=== PATIENT | female | born 1970 | race Caucasian/White ===

== ENCOUNTER 2023-09-02 12:55 | Outpatient (OUT) | payer BC, SELFPAY ==
--- NOTE | 2023-09-02 13:34 | CA_ITS ---
Patient Name: MAKAYLA GRIFFITHS MR#: [id number] : 1970 Exam Date: 09/02/2023 Ordering Doctor: DR STEPHANIE FLEMING . ECHOCARDIOGRAM REPORT PROCEDURE: CA ECHO DOPPLER COMPLETE INDICATIONS: Shortness of breath, edema, diabetes, asthma COMPARISON: None. DESCRIPTION: COMPLETE ECHOCARDIOGRAM Real-time transthoracic echocardiography with 2D, M-mode, spectral and color flow Doppler performed. QUALITY: Technical quality was adequate. 64 , 260#, BSA 2.19 m2 LEFT VENTRICLE: Normal chamber size. Moderate concentric left ventricular hypertrophy. LV EF: Global left ventricular systolic function is normal; visually estimated ejection fraction is 55 to 60%. Cannot assess regional wall motion abnormalities. DIASTOLIC: Normal diastolic function. ATRIAL SEPTUM: Visually appears intact. LEFT ATRIUM: Normal chamber size. RIGHT ATRIUM: Normal chamber size. RIGHT VENTRICLE: Normal chamber size. Normal systolic function. TRICUSPID VALVE: Normal mobility and thickness. No stenosis with trivial regurgitation. No evidence of pulmonary hypertension. RVSP 33 mmHg MITRAL VALVE: Normal mobility and thickness. No evidence of mitral valve stenosis. There is no mitral annular calcification. No mitral regurgitation. AORTIC VALVE: Normal trileaflet appearance. No visible sclerosis. Normal leaflet mobility. No evidence of aortic valve stenosis. No aortic regurgitation. AORTIC ROOT: Normal diameter and appearance. PULMONIC VALVE: Not well visualized. No stenosis. No regurgitation. PERICARDIUM: Anterior free space; trivial effusion versus fat pad. IVC: Collapses with inspirations. IVC is normal in size. CONCLUSION: 1. Global left ventricular systolic function is normal; visually estimated ejection fraction is 55 to 60% 2. Moderately increased left ventricular wall thickness 3. The right ventricle is normal size and systolic function 4. Normal diastolic function 5. No significant valvular abnormalities 6. Anterior free space; trivial effusion versus fat pad. Adult Echocardiography Procedure Report Left Ventricle LVEDD (3.7 - 5.6 cm): 3.82 cm LVESD (2.2 - 4.0 cm): 2.58 cm LVIVS thickness (0.6 - 1.2 cm): 1.47 cm LVPW thickness (0.5 - 1.0 cm): 1.30 cm e': 0.12 m/s E - e': 9.23 LVOT Max Gradient: 4.37 mm[Hg] LVOT Area (cm2): 1.04 m/s Peak Velocity (LVOT): 1.04 m/s Mean Velocity (LVOT): 0.62 m/s LVOT Diameter 1.98 cm Left Atrium LA Volume Index (2D A2C): 17.95 ml/m2 Left Atrium Systolic Dimension: 3.19 cm Mitral Valve MV E to A Ratio: 1.24 Mitral Valve A-Wave Peak Velocity: 0.86 m/s Mitral Valve E-Wave Peak Velocity: 1.06 m/s Right Ventricle Aorta AO Root Diam: 3.16 cm Ascending Ao Diam: 2.95 cm Aortic Valve AoV Area (Peak Suleiman): 1.99 cm2, 1.99 cm2 AoV Area (VTI): 2.44 cm2, 2.44 cm2 Peak Velocity(Antegrade Flow): 1.61 m/s Peak Gradient(Antegrade Flow): 10.37 mm[Hg] Mean Velocity(Antegrade Flow): 0.99 m/s Mean Gradient(Antegrade Flow): 4.61 mm[Hg] Velocity Time Integral: 30.78 cm Tricuspid Valve Peak Velocity (Regurgitant Flow): 2.73 m/s Pulmonic Valve Peak Velocity: 1.25 m/s Peak Gradient: 5.35 mm[Hg], 7.14 mm[Hg] Right Atrium Dictated by: Arik Maki M.D. on 09/02/2023 at 16:18 Approved by: Arik Maki M.D. on 09/02/2023 at 16:21
== END 2023-09-02 12:56 | disposition home or self-care (01) ==
LOC: CARD 12:55
PROVIDERS: PCP Family Medicine; Visit Provider Family Medicine
DX: R06.02 Shortness of breath (principal); R60.0 Localized edema
CPT/HCPCS: 93306

== ENCOUNTER 2023-10-07 12:52 | Outpatient (OUT) | payer BC, SELFPAY ==
--- OUTSIDE RECORDS SUMMARY | 2023-10-07 12:55 | XMS_ITS | CCD ---
Demographics Address [address] [place] [address] Preferred Language en Marital Status Scientology Affiliation Unknown Race White Ethnic Group Unknown Author Name Unknown Address [address] [facility] [address] [place] [address] Organization [facility] Care Team Providers Care Tariff Compiler Name Role Phone ADELINANING, SYLVIA Chin Attending Unavailable HOUSE SR, PRIETO HIDALGO Referring Unavai lable HOUSE SR, PRIETO HIDALGO Referring Unavai lable FANNING, SYLVIA Chin Referring Unavailable FANNING, SYLVIA Chin Referring Unavailable FANNING, SYLVIA Chin Referring Unavailable FANNING, SYLVIA Chin Referring Unavailable HOUSE SR, PRIETO HIDALGO Referring Unavai lable FANNING, SYLVIA Chin Attending Unavailable HOUSE SR, PRIETO HIDALGO Referring Unavai lable FANNING, SYLVIA Chin Referring Unavailable FANNING, SYLVIA Chin Referring Unavailable HOUSE SR, PRIETO HIDALGO Referring Unavai lable FANNING, SYLVIA Chin Referring Unavailable FANNING, SYLVIA Chin Attending Unavailable HOUSE SR, PRIETO HIDALGO Referring Unavai lable FANNING, SYLVIA Chin Referring Unavailable FANNING, SYLVIA Chin Referring Unavailable FANNING, SYLVIA Chin Referring Unavailable FANNING, SYLVIA Chin Referring Unavailable FANNING, SYLVIA Chin Referring Unavailable FANNING, SYLVIA Chin Referring Unavailable HOY, DR BROWN Primary Care Unavailable BERNADETTE, DR BROWN Admitting Unavailable BERNADETTE, DR BROWN Attending Unavailable BERNADETTE, DR BROWN Primary Care Unavailable BERNADETTE, DR BROWN Admitting Unavailable BERNADETTE, DR BROWN Attending Unavailable BERNADETTE, DR BROWN Consulting Unavailable BERNADETTE, DR BROWN Primary Care Unavailable BERNADETTE, DR BROWN Admitting Unavailable BERNADETTE, DR BROWN Attending Unavailable MIRLANDE, DR ENMANUEL Soliz Consulting Unavailable BERNADETTE, DR BROWN Attending Unavailable BERNADETTE, DR BROWN Primary Care Unavailable BERNADETTE, DR BROWN Admitting Unavailable Allergies Allergy Classification Reported Allergen(s) Allergy Type Date of Onset Reaction(s) Facility (2 sources) Codeine; Translations: [CODEINE] Drug Allergy 06-17-2018 [facility] Repository (1 source) bee venom Drug allergy (disorder) [facility] Repository (1 source) Grass pollen Drug allergy (disorder) [facility] Repository (1 source) house dust allergenic extract Drug Allergy [facility] Repository (1 source) Mold Extract Drug Allergy [facility] Repository (1 source) Penicillin Drug Allergy [facility] Repository (1 source) Ragweed Drug allergy (disorder) [facility] Repository Problems Active Problems Problem Classification Problem Date Documented Da te Episodic/Chronic Other female genital disorders (1 source) Abnormal uterine and vaginal bleeding, unspecified; Translations: [Abnormal uterine and vaginal bleeding, unspecified] Onset: 06-18-2018 Chronic Other screening for suspected conditions (not mental disorders or infectious disease) (4 sources) Encounter for screening mammogram for malignant neoplasm of breast; Translations: [ENC SCR MAMMO MALIG NEOPLASM BREAST] Onset: 04-02-2022 Episodic Residual codes; unclassified (1 source) Family history of malignant neoplasm of breast; Translations: [FAMILY HX MALIG NEOPLASM OF BREAST] Onset: 04-07-2022 Episodic Past or Other Problems Problem Classification Problem Date Documented Da te Episodic/Chronic Deficiency and other anemia (1 source) Iron deficiency anemia, unspecified; Translations: [Iron deficiency anemia, unspecified] Onset: 06-18-2018 Episodic Residual codes; unclassified (1 source) Other general symptoms and signs; Translations: [Other general symptoms and signs] Onset: 06-18-2018 Episodic Results Test Name Value Interpretation Reference Range Facility MG MAMM SCREEN 3D THEODORE CADon 04-02-2022 MG MAMM SCREEN 3D THEODORE CAD Patient: SARAH BETH GRIFFITHS Exam Date: 04/02/2022 : 1970 Gender:F Ordering : DR STEPHANIE FLEMING . Admission #: [id number] Family : Order #: [id number] CLICK HERE TO VIEW EXAM RADIOLOGY REPORT PROCEDURE: MAMMOGRAM SCREENING 3D BILATERAL CAD COMPARISON: MG MAMM DX 3D LT CAD, 11/24/2018. MG MAMM SCREEN 3D THEODORE CAD, 11/09/2018. INDICATIONS: Screening mammography Calculator Name NCI Breast Cancer Risk Assessment Tool 5 Year Breast Cancer Risk 1.50% Lifetime Breast Cancer Risk 11.00% Personal Breast Cancer No Personal Ovarian Cancer No Treatments None Family Cancers Mother with breast cancer at age 68; Grandmother-maternal with breast cancer at age 70. LOCATION: [facility] BREAST COMPOSITION: Heterogeneously dense,which may obscure small masses. FINDINGS: DIAGNOSTIC CATEGORY 2--BENIGN FINDING: RIGHT BREAST: No significant suspicious finding. Scattered benign-appearing calcifications are present. No significant change has occurred. LEFT BREAST: No significant suspicious finding. Scattered benign-appearing calcifications are present. No significant change has occurred. RECOMMENDATIONS: ROUTINE MAMMOGRAM AND CLINICAL EVALUATION IN 12 MONTHS. PLEASE NOTE: A NORMAL MAMMOGRAM DOES NOT EXCLUDE THE POSSIBILITY OF BREAST CANCER. A CLINICALLY SUSPICIOUS PALPABLE LUMP SHOULD BE BIOPSIED. Dictated by: Enmanuel Donahue M.D. on 04/03/2022 at 14:38 Approved by: Enmanuel Donahue M.D. on 04/03/2022 at 14:47 Normal [facility] Stool Occult Bl. Scr. (Immun o)on 03-12-2022 Stool Occult Bl. Scr. (Immuno) Occult Blood (Immuno) Negative for Occult Blood by Immunochemical Methodology Reference range = Negative PERFORMED BY: [place] [address] PATHOLOGIST FAMILY SERVICE ASSISTANT TEJAS HARP M.D. Normal [facility] Comment on above: Performed By: #### O BS-IMMUNO #### [facility] [address] [place], [place] [id number] [facility] A1C with Estimated Average G tyronisamar 03-11-2022 Glucose [Mass/Vol] 154 mg/dL Normal [facility] Comment on above: Result Comment: PERF ORMED BY: [place] [address] PATHOLOGIST FAMILY SERVICE ASSISTANT TEJAS HARP M.D. Performed By: #### T 3F, A1C WTH eA, SCAN CBC, TSH3, [id number], CMP, LIPID, T4T #### [facility] [address] [place] [phone] [facility] HbA1c (Bld) [Mass fraction] 7.0 % High 4.3-5.6 [facility] Comment on above: Result Comment: Incr eased risk for diabetes: 5.7 - 6.4 diabetes: >6.4 glycemic control for adults with diabetes: <7.0 Performed By: #### T 3F, A1C WTH eA, SCAN CBC, TSH3, [id number], CMP, LIPID, T4T #### [facility] [address] Comprehensive Metabolic Pane mary 03-11-2022 Albumin [Mass/Vol] 3.7 g/dL Normal 3.2-5.5 [facility] Comment on above: Performed By: #### T 3F, A1C WTH eA, SCAN CBC, TSH3, [id number], CMP, LIPID, T4T #### [address] Albumin/Globulin [Mass ratio] 1.2 {ratio} Normal [facility] Comment on above: Performed By: #### T 3F, A1C WTH eA, SCAN CBC, TSH3, [id number], CMP, LIPID, T4T #### [facility] [address] ALP [Catalytic activity/Vol] 95 U/L High 32-92 [facility] Comment on above: Performed By: #### T 3F, A1C WTH eA, SCAN CBC, TSH3, [id number], CMP, LIPID, T4T #### [facility] [address] [place] [address] ALT [Catalytic activity/Vol] 21 U/L Normal 10-60 [facility] Comment on above: Performed By: #### T 3F, A1C WTH eA, SCAN CBC, TSH3, [id number], CMP, LIPID, T4T #### [facility] [address] [place] [address] [place] AST [Catalytic activity/Vol] 20 U/L Normal 10-42 [facility] Comment on above: Performed By: #### T 3F, A1C WTH eA, SCAN CBC, TSH3, [id number], CMP, LIPID, T4T #### [facility] [address] [place] [address] [place] Bilirubin [Mass/Vol] 0.4 mg/dL Normal 0.3-1.2 [facility] Comment on above: Performed By: #### T 3F, A1C WTH eA, SCAN CBC, TSH3, [id number], CMP, LIPID, T4T #### [facility] [address] Calcium [Mass/Vol] 9.2 mg/dL Normal 8.2-10.2 [facility] Comment on above: Performed By: #### T 3F, A1C WTH eA, SCAN CBC, TSH3, [id number], CMP, LIPID, T4T #### [facility] [address] Chloride [Moles/Vol] 101 mmol/L Normal 95-114 [facility] Comment on above: Performed By: #### T 3F, A1C WTH eA, SCAN CBC, TSH3, [id number], CMP, LIPID, T4T #### [facility] [address] CO2 [Moles/Vol] 24.8 mmol/L Normal 22.0-30.0 [facility] Comment on above: Performed By: #### T 3F, A1C WTH eA, SCAN CBC, TSH3, [id number], CMP, LIPID, T4T #### [facility] [address] Creatinine [Mass/Vol] 0.71 mg/dL Normal 0.44-1.03 [facility] Comment on above: Performed By: #### T 3F, A1C WTH eA, SCAN CBC, TSH3, [id number], CMP, LIPID, T4T #### [facility] [address] [place] [address] [place] Estimated GFR ( Patricia > 60 Normal [facility] Comment on above: Result Comment: GFR estimated reference range: According to KDOQI guidelines, <60 ml/min/1.73m2 is sufficient to diagnose a patient with chronic kidney disease. Performed By: #### T 3F, A1C WTH eA, SCAN CBC, TSH3, [id number], CMP, LIPID, T4T #### [facility] [address] Estimated GFR (Non- Am > 60 [facility] Comment on above: Performed By: #### T 3F, A1C WTH eA, SCAN CBC, TSH3, [id number], CMP, LIPID, T4T #### [facility] [address] Globulin (S) [Mass/Vol] 3.0 g/dL [facility] Comment on above: Performed By: #### T 3F, A1C WTH eA, SCAN CBC, TSH3, [id number], CMP, LIPID, T4T #### [facility] [address] Glucose [Mass/Vol] 146 mg/dL High 70-100 [facility] Comment on above: Result Comment: [facility] Glucose Reference Range is dependent on time and content of last meal. Glucose of more than 200 mg/dL in a nonstressed, ambulatory subject supports the diagnosis of Diabetes Mellitus. ADA recommended reference range Performed By: #### T 3F, A1C WTH eA, SCAN CBC, TSH3, [id number], CMP, LIPID, T4T #### [facility] [address] Potassium [Moles/Vol] 3.8 mmol/L Normal 3.5-5.1 [facility] Comment on above: Performed By: #### T 3F, A1C WTH eA, SCAN CBC, TSH3, [id number], CMP, LIPID, T4T #### [facility] [address] Protein [Mass/Vol] 6.7 g/dL Normal 6.1-7.9 [facility] Comment on above: Performed By: #### T 3F, A1C WTH eA, SCAN CBC, TSH3, [id number], CMP, LIPID, T4T #### [facility] [address] Sodium [Moles/Vol] 139 mmol/L Normal 136-146 [facility] Comment on above: Performed By: #### T 3F, A1C WTH eA, SCAN CBC, TSH3, [id number], CMP, LIPID, T4T #### [facility] [address] [place] [address] [place] Urea nitrogen [Mass/Vol] 11 mg/dL Normal 9-23 [facility] Comment on above: Performed By: #### T 3F, A1C WTH eA, SCAN CBC, TSH3, [id number], CMP, LIPID, T4T #### [facility] [address] Lipid Panelon 03-11-2022 Cholesterol [Mass/Vol] 156 mg/dL Normal 140-200 [facility] Comment on above: Result Comment: Chol less than 200 mg/dl low risk Chol 201-239 mg/dl borderline risk Chol 240 mg/dl and greater high risk Performed By: #### T 3F, A1C WTH eA, SCAN CBC, TSH3, [id number], CMP, LIPID, T4T #### [facility] [address] Cholesterol in HDL [Mass/Vol] 52 mg/dL Normal 35-85 [facility] Comment on above: Result Comment: HDL CHOL ATP-III CLASSIFICATION Cardiovascular Risk HDL > or equal to 60 mg/dL LOW HDL < 40 mg/dL HIGH Performed By: #### T 3F, A1C WTH eA, SCAN CBC, TSH3, [id number], CMP, LIPID, T4T #### [facility] [address] [place] [id number] [facility] Cholesterol.total/Chol esterol in HDL [Mass ratio] 3.0 {ratio} Normal <5.0 [facility] Comment on above: Performed By: #### T 3F, A1C WTH eA, SCAN CBC, TSH3, [id number], CMP, LIPID, T4T #### [facility] [address] [place] [phone] [facility] LDL Cholesterol,Calculated 90 mg/dL Normal 0-100 [facility] Comment on above: Result Comment: LDL ATP III CLASSIFICATION LDL less than 100 mg/dL Optimal LDL 100-129 mg/dL Near or above optimal LDL 130-159 mg/dL Borderline high LDL 160-189 mg/dL High LDL greater than 189 mg/dL Very high Performed By: #### T 3F, A1C WTH eA, SCAN CBC, TSH3, [id number], CMP, LIPID, T4T #### [address] Triglyceride w/Reflex 72 mg/dL Normal 35-149 [facility] Comment on above: Result Comment: TRIG ATP III CLASSIFICATION TRIG less than 150 mg/dL Normal TRIG 150-199 mg/dL Borderline high TRIG 200-500 mg/dL High TRIG greater than 500 mg/dL Very high Standard traceable to the Center for Disease Conrtrol and Prevention (CDC) test method. Performed By: #### T 3F, A1C WTH eA, SCAN CBC, TSH3, [id number], CMP, LIPID, T4T #### [address] VLDL CHOLESTEROL 14 mg/dL Normal [facility] Comment on above: Performed By: #### T 3F, A1C WTH eA, SCAN CBC, TSH3, [id number], CMP, LIPID, T4T #### [address] Scan and CBCon 03-11-2022 Basophils (Bld) [#/Vol] 0.0 10*3/uL Normal 0.0-0.2 [facility] Comment on above: Performed By: #### T 3F, A1C WTH eA, SCAN CBC, TSH3, [id number], CMP, LIPID, T4T #### [address] Basophils/100 WBC (Bld) 0.2 % Normal . [facility] Comment on above: Performed By: #### T 3F, A1C WTH eA, SCAN CBC, TSH3, [id number], CMP, LIPID, T4T #### [address] Eosinophils (Bld) [#/Vol] 0.2 10*3/uL Normal 0.0-0.45 [facility] Comment on above: Performed By: #### T 3F, A1C WTH eA, SCAN CBC, TSH3, [id number], CMP, LIPID, T4T #### [place] [address] [place] Eosinophils/100 WBC (Bld) 2.7 % Normal . [facility] Comment on above: Performed By: #### T 3F, A1C WTH eA, SCAN CBC, TSH3, [id number], CMP, LIPID, T4T #### [address] Erythrocyte distribution width (RBC) [Ratio] 12.9 % Normal 11.9-15.3 [facility] Comment on above: Performed By: #### T 3F, A1C WTH eA, SCAN CBC, TSH3, [id number], CMP, LIPID, T4T #### [address] Hematocrit (Bld) [Volume fraction] 42.4 % Normal 34.0-46.4 [facility] Comment on above: Performed By: #### T 3F, A1C WTH eA, SCAN CBC, TSH3, [id number], CMP, LIPID, T4T #### [address] Hemoglobin (Bld) [Mass/Vol] 14.1 g/dL Normal 11.8-15.4 [facility] Comment on above: Performed By: #### T 3F, A1C WTH eA, SCAN CBC, TSH3, [id number], CMP, LIPID, T4T #### [address] Large Platelets Slight Normal [facility] Comment on above: Result Comment: PERF ORMED BY: [place] [address] PATHOLOGIST FAMILY SERVICE ASSISTANT TEJAS HARP M.D. Performed By: #### T 3F, A1C WTH eA, SCAN CBC, TSH3, [id number], CMP, LIPID, T4T #### [address] Lymphocytes (Bld) [#/Vol] 0.7 10*3/uL Low 1.00-4.8 [facility] Comment on above: Performed By: #### T 3F, A1C WTH eA, SCAN CBC, TSH3, [id number], CMP, LIPID, T4T #### [address] Lymphocytes/100 WBC (Bld) 11.5 % Normal . [facility] Comment on above: Performed By: #### T 3F, A1C WTH eA, SCAN CBC, TSH3, [id number], CMP, LIPID, T4T #### [address] MCH (RBC) [Entitic mass] 30.1 pg Normal 24.7-34.3 [facility] Comment on above: Performed By: #### T 3F, A1C WTH eA, SCAN CBC, TSH3, [id number], CMP, LIPID, T4T #### [address] MCV (RBC) [Entitic vol] 90.2 fL Normal 80-100 [facility] Comment on above: Performed By: #### T 3F, A1C WTH eA, SCAN CBC, TSH3, [id number], CMP, LIPID, T4T #### [address] Mean Corpuscular HGB Conc 33.4 g/dL Normal 32.0-35.0 [facility] Comment on above: Performed By: #### T 3F, A1C WTH eA, SCAN CBC, TSH3, [id number], CMP, LIPID, T4T #### [address] Monocytes (Bld) [#/Vol] 0.5 10*3/uL Normal 0.0-0.8 [facility] Comment on above: Performed By: #### T 3F, A1C WTH eA, SCAN CBC, TSH3, [id number], CMP, LIPID, T4T #### [address] Monocytes/100 WBC (Bld) 8.1 % Normal . [facility] Comment on above: Performed By: #### T 3F, A1C WTH eA, SCAN CBC, TSH3, [id number], CMP, LIPID, T4T #### [facility] [address] [place] [address] [place] Neutrophils (Bld) [#/Vol] 4.4 10*3/uL Normal 1.8-7.7 [facility] Comment on above: Performed By: #### T 3F, A1C WTH eA, SCAN CBC, TSH3, [id number], CMP, LIPID, T4T #### [facility] [address] [place] [address] [place] Neutrophils/100 WBC (Bld) 77.5 % Normal . [facility] Comment on above: Performed By: #### T 3F, A1C WTH eA, SCAN CBC, TSH3, [id number], CMP, LIPID, T4T #### [place] [address] [place] Nucleated RBC/100 WBC (Bld) [Ratio] 0.0 % Normal 0-0.5 [facility] Comment on above: Performed By: #### T 3F, A1C WTH eA, SCAN CBC, TSH3, [id number], CMP, LIPID, T4T #### [address] Platelet Estimate Normal Normal Normal [facility] Comment on above: Performed By: #### T 3F, A1C WTH eA, SCAN CBC, TSH3, [id number], CMP, LIPID, T4T #### [address] Platelet mean volume (Bld) [Entitic vol] 10.9 fL High 6.3-10.7 [facility] Comment on above: Performed By: #### T 3F, A1C WTH eA, SCAN CBC, TSH3, [id number], CMP, LIPID, T4T #### [place] [address] [place] Platelets (Bld) [#/Vol] 180 10*3/uL Normal 150-450 [facility] Comment on above: Performed By: #### T 3F, A1C WTH eA, SCAN CBC, TSH3, [id number], CMP, LIPID, T4T #### [address] [place] [address] [place] RBC (Bld) [#/Vol] 4.70 10*6/uL Normal 3.60-5.00 [facility] Comment on above: Performed By: #### T 3F, A1C WTH eA, SCAN CBC, TSH3, [id number], CMP, LIPID, T4T #### [address] RBC morphology finding Nom (Bld) Normal Normal [facility] Comment on above: Performed By: #### T 3F, A1C WTH eA, SCAN CBC, TSH3, [id number], CMP, LIPID, T4T #### [address] WBC (Bld) [#/Vol] 5.6 10*3/uL Normal 4.5-11.0 [facility] Comment on above: Performed By: #### T 3F, A1C WTH eA, SCAN CBC, TSH3, [id number], CMP, LIPID, T4T #### [address] Thyroid Stimulating Hormoneo n 03-11-2022 TSH Qn 1.35 m[IU]/L Normal 0.45-5.33 [facility] Comment on above: Performed By: #### T 3F, A1C WTH eA, SCAN CBC, TSH3, [id number], CMP, LIPID, T4T #### [address] Thyroxine (T4) Totalon 03-11 T4 [Mass/Vol] 9.10 ug/dL Normal 5.39-11.82 [facility] Comment on above: Performed By: #### T 3F, A1C WTH eA, SCAN CBC, TSH3, [id number], CMP, LIPID, T4T #### [address] Triiodothyronine (T3) Freeon 03-11-2022 Triiodothyronine (T3) Free 4.04 pg/mL High 2.50-3.90 [facility] Comment on above: Result Comment: PERF ORMED BY: [address] [place] [address] PATHOLOGIST FAMILY SERVICE ASSISTANT TEJAS HARP M.D. Performed By: #### T 3F, A1C WTH eA, SCAN CBC, TSH3, [id number], CMP, LIPID, T4T #### [facility] [address] [place] [id number] [facility] Vitamin D 25 Hydroxy Totalon 03-11-2022 Vitamin D 25 Hydroxy Total 14.3 ng/mL Low 30-100 [facility] Comment on above: Result Comment: RADHA MIN D STATUS 25(OH)VITAMIN D RANGE (ng/mL) Deficient <20 Insufficient 20 to <30 Sufficient 30 to 100 Reference: Ilda MF,Sandi LUNSFORD, Gayle LOYA, et al. Evaluation,treatment, and prevention of vitamin D deficiency; an Endocrine Society clinical practice guideline. JCEM. 2010; 96(7):1911-30. PERFORMED BY: [place] [address] PATHOLOGIST FAMILY SERVICE ASSISTANT TEJAS HARP M.D. Performed By: #### T 3F, A1C WTH eA, SCAN CBC, TSH3, [id number], CMP, LIPID, T4T #### [facility] [address] [place] [id number] [facility] Ferritinon 10-15-2018 Ferritin mass conc 46.9 ng/mL Normal 14.7-205.1 [facility] Comment on above: Performed By: #### R CBCDF #### [facility] [address] [place], [place] [address] Iron and TIBCon 10-15-2018 Iron mass conc 69 ug/dL Normal 41-186 [facility] Comment on above: Performed By: #### R CBCDF #### [facility] [place], [place] [address] TIBC 366 ug/dL Normal 232-386 [facility] Comment on above: Performed By: #### R CBCDF #### [facility] [place], [place] [address] Transferrin Saturatn 19 % Normal 15-57 [facility] Comment on above: Performed By: #### R CBCDF #### [facility] [address] [id number] Remote Abs Gran + CBC (for F HC use only)on 10-15-2018 Absol Gran Count 6.30 k/uL Normal 1.45-7.50 [facility] Erythrocyte distribution width Ratio (RBC) 12.3 % Normal 11.5-15.0 [facility] Hematocrit Volume Fraction (Bld) 43.8 % Normal 36.0-46.0 [facility] Hemoglobin mass conc (Bld) 14.8 g/dL Normal 11.5-15.5 [facility] MCH Entitic mass (RBC) 30.7 pG Normal 26.0-34.0 [facility] MCHC mass conc (RBC) 33.8 g/dL Normal 30.5-36.0 [facility] MCV Entitic volume (RBC) 90.9 fL Normal 80.0-100.0 [facility] Platelet mean volume Entitic volume (Bld) 12.5 fL Normal 9.0-12.7 [facility] Platelets #/vol (Bld) 189 10*3/uL Normal 150-400 [facility] RBC #/vol (Bld) 4.82 10*6/uL Normal 3.90-5.20 [facility] WBC #/vol (Bld) 8.02 10*3/uL Normal 3.70-11.00 [facility] Ferritinon 08-24-2018 Ferritin mass conc 32.1 ng/mL Normal 14.7-205.1 [facility] Comment on above: Performed By: #### F ERR, IRON ####[facility] [place], [place] [phone] Iron and TIBCon 08-24-2018 Iron mass conc 75 ug/dL Normal 41-186 [facility] Comment on above: Performed By: #### F ERR, IRON ####[facility] [phone] TIBC 375 ug/dL Normal 232-386 [facility] Comment on above: Performed By: #### F ERR, IRON ####[place] [phone] Transferrin Saturatn 20 % Normal 15-57 [facility] Comment on above: Performed By: #### F ERR, IRON ####[place] [phone] Remote Abs Gran + CBC (for F HC use only)on 08-24-2018 Absol Gran Count 5.78 k/uL Normal 1.45-7.50 [facility] Comment on above: Performed By: #### R AGCBC ####[address] [phone] Comment [id number] Normal [facility] Comment on above: Result Comment: Gregoria ferris checked for a clot. Preliminary result. Interpret with caution. Final results may vary. Results requested and read back by: KAYCE/BELEM/144/08/24/18/LATONYA Performed By: #### R AGCBC ####[place] [phone] Erythrocyte distribution width Ratio (RBC) 19.3 % High 11.5-15.0 [facility] Comment on above: Performed By: #### R AGCBC ####[place] [phone] Hematocrit Volume Fraction (Bld) 41.9 % Normal 36.0-46.0 [facility] Comment on above: Performed By: #### R AGCBC ####[address] [phone] Hemoglobin mass conc (Bld) 14.0 g/dL Normal 11.5-15.5 [facility] Comment on above: Performed By: #### R AGCBC ####[address] [place], [place] [phone] MCH Entitic mass (RBC) 28.8 pG Normal 26.0-34.0 [facility] Comment on above: Performed By: #### R AGCBC ####[facility] [facility], [place] [phone] MCHC mass conc (RBC) 33.4 g/dL Normal 30.5-36.0 [facility] Comment on above: Performed By: #### R AGCBC ####[facility] [facility] CampusAugustoPle[place], [place] [phone] MCV Entitic volume (RBC) 86.2 fL Normal 80.0-100.0 [facility] Comment on above: Performed By: #### R AGCBC ####[address] [phone] Platelets #/vol (Bld) 148 10*3/uL Low 150-400 [facility] Comment on above: Result Comment: Resu lt rechecked. No clot detected. Performed By: #### R AGCBC ####[address] [phone] RBC #/vol (Bld) 4.86 10*6/uL Normal 3.90-5.20 [facility] Comment on above: Performed By: #### R AGCBC ####[address] [phone] WBC #/vol (Bld) 7.56 10*3/uL Normal 3.70-11.00 [facility] Comment on above: Performed By: #### R AGCBC ####[facility] [place], [place] [phone] CNOVSPon 07-16-2018 CNOVSP Visit (SP) Office ([place]) SARAH BETH GRIFFITHS ([id number]) 1970 F Date Time Provider Department 07/16/18 9:45 AM SYLVIA CHIN During your visit today, we recorded the following information about you: Temperature Pulse Respiration Blood pressure 98 degrees 71/minute 18/minute 139/66 Weight Height 85.3 kg 1.63 m Sylvia Chin MD 07/16/2018 12:23 PM Signed HPI Sarah Beth Griffiths is a 48 year old female who presents in follow up. 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 She had IV iron with improvement in hgb. I will continue to check labs until she gets her bleeding under control. She presented June 18, 2018 with iron deficiency and vaginal bleeding. Since March she has had intractable vaginal bleeding which has been quite heavy. She presented with microcytic anemia with a hemoglobin down to 5.5 with microcytosis. She had ice craving, severe dyspnea on exertion consistent with severe anemia. She was put on oral iron the week before presentation but had terrible constipation and GI symptoms related to this. She had a great response to IV iron. Current Outpatient Prescriptions: VENTOLIN HFA 90 mcg/actuation inhaler albuterol (PROVENTIL) 2.5 mg /3 mL (0.083 %) nebulizer solution loratadine/pseudoeph edrine (CLARITIN-D 24 HOUR ORAL) Take by mouth. pseudoephedrine HCl (SUDAFED ORAL) Take by mouth. No current facility-administere d medications for this visit. ALLERGIES Allergen Reactions - Codeine Unknown REVIEW OF SYSTEMS GENERAL: No weight loss, malaise or fevers., SEE HPI HEENT: Negative for frequent or significant headaches, No changes in hearing or vision, no nose bleeds or other nasal problems NECK: Negative for lumps, goiter, pain and significant neck swelling RESPIRATORY: Negative for cough, wheezing or shortness of breath. CARDIOVASCULAR: Negative for chest pain, leg swelling or palpitations. GI: Negative for abdominal discomfort, blood in stools or black stools or change in bowel habits MUSCULOSKELETAL: Negative for joint pain or swelling, back pain or muscle pain. SKIN: Negative for lesions, rash, and itching. PSYCH: Negative for sleep disturbance, mood disorder and recent psychosocial stressors. HEMATOLOGY/LYMPHOLOG Y: Negative for prolonged bleeding, bruising easily or swollen nodes. NEURO: No history of headaches, syncope, paralysis, seizures or tremors All other reviewed and negative other than HPI. PHYSICAL EXAM: BP 139/66 Pulse 71 Temp 36.7 ?C (98 ?F) (Oral) Resp 18 Ht 163 cm (5' 4.17 ) Wt 85.3 kg (188 lb) SpO2 100% BMI 32.10 kg/m? General Appearance: alert and oriented, appearing in no acute distress Skin: skin color, texture, turgor normal, no suspicious rashes or lesions. Head: normal. Eyes: Anicteric sclera. Pupils are equally round. Extraocular movements are intact. . Ears: external ears normal Neck: Supple, no adenopathy; thyroid symmetric, normal size, no bruits. Back:no pain with ambulation Lungs: good air exchange overall Heart: RRR Abdomen: No obvious evidence of rebound tenderness or guarding Extremities: Extremities normal. No deformities, edema, or skin discoloration. Good capillary refill.. Musculoskeletal: Spine range of motion normal. Muscular strength intact. Peripheral Pulses: Normal. Neurologic: Gait normal. No gross cerebellar defects Psychiatric: the patient has an appropriate affect Hemoglobin (g/dL) Date Value 07/16/2018 11.7 Hematocrit (%) Date Value 07/16/2018 37.3 WBC (k/uL) Date Value 07/16/2018 7.55 Platelet Count (k/uL) Date Value 07/16/2018 187 ASSESSMENT/PLAN: 1. Vaginal bleeding - ICD9: 623.8, ICD10: N93.9 (primary diagnosis) See above - IRON + TIBC - FERRITIN BLD - ABS GRAN CT + CBC (FOR REMOTE [facility] USE) 2. Iron deficiency anemia, unspecified iron deficiency anemia type - ICD9: 280.9, ICD10: D50.9 Lab work Defer management to REPAIRER CYLINDER HEADS See me in follow up - IRON + TIBC - FERRITIN BLD - ABS GRAN CT + CBC (FOR REMOTE [facility] USE) Sylvia Chin MD Referring Provider: FORT SUMNER SR, PRIETO HIDALGO [[id number]] Allergies As of Date: 07/16/2018 Noted Allergy Reaction CODEINE 06/17/2018 16 - Unknown Date Reviewed: 07/16/2018 Reviewed by: Yadi Cisneros - Fully Assessed Reason for Visit: Anemia [6] Cmt: 4 week follow up Primary Visit Diagnosis:Vaginal bleeding [N93.9] Other Visit Diagnosis:Iron deficiency anemia, unspecified iron deficiency anemia type [D50.9] Order(s):IRON + TIBC [SQIRON] Order #: [id number] STANDING FERRITIN BLD [SQFERR] Order #: [id number] STANDING ABS GRAN CT + CBC (FOR REMOTE [facility] USE) [SQRAGCBC] Order #: [id number] STANDING Disposition: Return in about 6 months (around 01/14/2019). Follow-up and Disposition History Recorded Prescriptions as of 07/16/2018 Sig: VENTOLIN HFA 90 MCG/ACTUATION* ALBUTEROL SULFATE 2.5 MG/3 ML* CLARITIN-D 24 HOUR ORAL Take by mouth. SUDAFED ORAL Take by mouth. Problem List As Of Date 07/16/2018 Noted Resolved Iron deficiency anemia [D50.9] INVALID FOR* Vaginal bleeding [N93.9] INVALID FOR* Encounter Status:Closed by SYLVIA CHIN MD on 07/16/18 Normal [facility] PROGRESSon 07-16-2018 Protein mass conc HNO ID: [id number] Author: Sylvia Chin Service: (none) Author Type: Physician Type: Progress Notes Filed: 07/16/2018 12:23 PM Note Text: MARVEL Griffiths is a 48 year old female who presents in follow up. 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 She had IV iron with improvement in hgb. I will continue to check labs until she gets her bleeding under control. She presented June 18, 2018 with iron deficiency and vaginal bleeding. Since March she has had intractable vaginal bleeding which has been quite heavy. She presented with microcytic anemia with a hemoglobin down to 5.5 with microcytosis. She had ice craving, severe dyspnea on exertion consistent with severe anemia. She was put on oral iron the week before presentation but had terrible constipation and GI symptoms related to this. She had a great response to IV iron. Current Outpatient Prescriptions: VENTOLIN HFA 90 mcg/actuation inhaler albuterol (PROVENTIL) 2.5 mg /3 mL (0.083 %) nebulizer solution loratadine/pseudoeph edrine (CLARITIN-D 24 HOUR ORAL) Take by mouth. pseudoephedrine HCl (SUDAFED ORAL) Take by mouth. No current facility-administere d medications for this visit. ALLERGIES Allergen Reactions - Codeine Unknown REVIEW OF SYSTEMS GENERAL: No weight loss, malaise or fevers., SEE HPI HEENT: Negative for frequent or significant headaches, No changes in hearing or vision, no nose bleeds or other nasal problems NECK: Negative for lumps, goiter, pain and significant neck swelling RESPIRATORY: Negative for cough, wheezing or shortness of breath. CARDIOVASCULAR: Negative for chest pain, leg swelling or palpitations. GI: Negative for abdominal discomfort, blood in stools or black stools or change in bowel habits MUSCULOSKELETAL: Negative for joint pain or swelling, back pain or muscle pain. SKIN: Negative for lesions, rash, and itching. PSYCH: Negative for sleep disturbance, mood disorder and recent psychosocial stressors. HEMATOLOGY/LYMPHOLOG Y: Negative for prolonged bleeding, bruising easily or swollen nodes. NEURO: No history of headaches, syncope, paralysis, seizures or tremors All other reviewed and negative other than HPI. PHYSICAL EXAM: BP 139/66 Pulse 71 Temp 36.7 ?C (98 ?F) (Oral) Resp 18 Ht 163 cm (5' 4.17 ) Wt 85.3 kg (188 lb) SpO2 100% BMI 32.10 kg/m? General Appearance: alert and oriented, appearing in no acute distress Skin: skin color, texture, turgor normal, no suspicious rashes or lesions. Head: normal. Eyes: Anicteric sclera. Pupils are equally round. Extraocular movements are intact. . Ears: external ears normal Neck: Supple, no adenopathy; thyroid symmetric, normal size, no bruits. Back:no pain with ambulation Lungs: good air exchange overall Heart: RRR Abdomen: No obvious evidence of rebound tenderness or guarding Extremities: Extremities normal. No deformities, edema, or skin discoloration. Good capillary refill.. Musculoskeletal: Spine range of motion normal. Muscular strength intact. Peripheral Pulses: Normal. Neurologic: Gait normal. No gross cerebellar defects Psychiatric: the patient has an appropriate affect Hemoglobin (g/dL) Date Value 07/16/2018 11.7 Hematocrit (%) Date Value 07/16/2018 37.3 WBC (k/uL) Date Value 07/16/2018 7.55 Platelet Count (k/uL) Date Value 07/16/2018 187 ASSESSMENT/PLAN: 1. Vaginal bleeding - ICD9: 623.8, ICD10: N93.9 (primary diagnosis) See above - IRON + TIBC - FERRITIN BLD - ABS GRAN CT + CBC (FOR REMOTE [facility] USE) 2. Iron deficiency anemia, unspecified iron deficiency anemia type - ICD9: 280.9, ICD10: D50.9 Lab work Defer management to REPAIRER CYLINDER HEADS See me in follow up - IRON + TIBC - FERRITIN BLD - ABS GRAN CT + CBC (FOR REMOTE [facility] USE) Sylvia Chin MD Normal [facility] Remote Abs Gran + CBC (for [facility] use only)on 07-16-2018 Absol Gran Count 5.67 k/uL Normal 1.45-7.50 [facility] Hematocrit Volume Fraction (Bld) 37.3 % Normal 36.0-46.0 [facility] Hemoglobin mass conc (Bld) 11.7 g/dL Normal 11.5-15.5 [facility] MCH Entitic mass (RBC) 25.9 pG Low 26.0-34.0 [facility] MCHC mass conc (RBC) 31.4 g/dL Normal 30.5-36.0 [facility] MCV Entitic volume (RBC) 82.5 fL Normal 80.0-100.0 [facility] Platelets #/vol (Bld) 187 10*3/uL Normal 150-400 [facility] Comment on above: Result Comment: Gregoria ferris checked for a clot. RBC #/vol (Bld) 4.52 10*6/uL Normal 3.90-5.20 [facility] WBC #/vol (Bld) 7.55 10*3/uL Normal 3.70-11.00 [facility] Remote Abs Gran + CBC (for [facility] use only)on 06-28-2018 Absol Gran Count 6.82 k/uL Normal 1.45-7.50 [facility] Comment on above: Performed By: #### R AGCBC ####[address] [phone] Comment WBC=8.29/SLA=587 Normal [facility] Comment on above: Result Comment[facility]. Preliminary result. Interpret with caution. Final results may vary. Results requested and read back by: AIDAN/BELEM/[id number]/06/28/18/LATONYA Performed By: #### R AGCBC ####[place] [phone] Erythrocyte distribution width Ratio (RBC) 31.6 % High 11.5-15.0 [facility] Comment on above: Performed By: #### R AGCBC ####[place] [phone] Hematocrit Volume Fraction (Bld) 36.5 % Normal 36.0-46.0 [facility] Comment on above: Performed By: #### R AGCBC ####[place] [phone] Hemoglobin mass conc (Bld) 10.9 g/dL Low 11.5-15.5 [facility] Comment on above: Performed By: #### R AGCBC ####[place] [phone] MCH Entitic mass (RBC) 22.5 pG Low 26.0-34.0 [facility] Comment on above: Performed By: #### R AGCBC ####[place] [phone] MCHC mass conc (RBC) 29.9 g/dL Low 30.5-36.0 [facility] Comment on above: Performed By: #### R AGCBC ####[facility] [place], [place] [phone] MCV Entitic volume (RBC) 75.4 fL Low 80.0-100.0 [facility] Comment on above: Performed By: #### R AGCBC ####[address] [phone] Platelets #/vol (Bld) 218 10*3/uL Normal 150-400 [facility] Comment on above: Result Comment: Resu lt checked and verified No clot detected. Performed By: #### R AGCBC ####[address] [phone] RBC #/vol (Bld) 4.84 10*6/uL Normal 3.90-5.20 [facility] Comment on above: Performed By: #### R AGCBC ####[address] [phone] WBC #/vol (Bld) 8.28 10*3/uL Normal 3.70-11.00 [facility] Comment on above: Result Comment: Resu lt checked and verified No clot detected. Performed By: #### R AGCBC ####[address] [phone] CNOVSPon 06-23-2018 OVS Visit (SP) Office ([place]) SARAH BETH GRIFFITHS ([id number]) 1970 F Date Time Provider Department 06/23/18 2:30 PM SYLVIA CHIN During your visit today, we recorded the following information about you: Temperature Pulse Respiration Blood pressure 98.2 degrees 87/minute 18/minute 124/48 Weight Height 84.7 kg 1.63 m Sylvia Chin MD 06/23/2018 2:58 PM Signed HPI Sarah Beth Griffiths is a 48 year old female who presents in follow up post injectafer and transfusion. She will see REPAIRER CYLINDER HEADS 07/08/18. I will plan on injectafer next week, see her in 3 weeks after that and plan on additional injectafer depending on response. She presented June 18, 2018 with iron deficiency and vaginal bleeding. Since March she has had intractable vaginal bleeding which has been quite heavy. She presented with microcytic anemia with a hemoglobin down to 5.5 with microcytosis. She had ice craving, severe dyspnea on exertion consistent with severe anemia. She was put on oral iron the week before presentation but had terrible constipation and GI symptoms related to this. Results for SARAH BETH GRIFFITHS ( ) as of 06/23/2018 14:57 Ref. Range 06/18/2018 09:31 Vitamin B12 Latest Ref Range: 232 - 1,245 pg/mL 378 Folate Latest Ref Range: >4.7 ng/mL 16.8 Ferritin Latest Ref Range: 14.7 - 205.1 ng/mL 7.5 (L) Iron Latest Ref Range: 41 - 186 ug/dL 14 (L) TIBC Latest Ref Range: 232 - 386 ug/dL 486 (H) Transferrin Saturation Latest Ref Range: 15 - 57 % 3 (L) Hematocrit Latest Ref Range: 36.0 - 46.0 % 21.8 (L) TSH Latest Ref Range: 0.400 - 5.500 uU/mL 1.360 Current Outpatient Prescriptions: VENTOLIN HFA 90 mcg/actuation inhaler albuterol (PROVENTIL) 2.5 mg /3 mL (0.083 %) nebulizer solution loratadine/pseudoeph edrine (CLARITIN-D 24 HOUR ORAL) Take by mouth. pseudoephedrine HCl (SUDAFED ORAL) Take by mouth. No current facility-administere d medications for this visit. ALLERGIES Allergen Reactions - Codeine Unknown REVIEW OF SYSTEMS GENERAL: No weight loss, malaise or fevers., SEE HPI HEENT: Negative for frequent or significant headaches, No changes in hearing or vision, no nose bleeds or other nasal problems NECK: Negative for lumps, goiter, pain and significant neck swelling RESPIRATORY: Negative for cough, wheezing or shortness of breath. CARDIOVASCULAR: Negative for chest pain, leg swelling or palpitations. GI: Negative for abdominal discomfort, blood in stools or black stools or change in bowel habits MUSCULOSKELETAL: Negative for joint pain or swelling, back pain or muscle pain. SKIN: Negative for lesions, rash, and itching. PSYCH: Negative for sleep disturbance, mood disorder and recent psychosocial stressors. HEMATOLOGY/LYMPHOLOG Y: Negative for prolonged bleeding, bruising easily or swollen nodes. NEURO: No history of headaches, syncope, paralysis, seizures or tremors All other reviewed and negative other than HPI. PHYSICAL EXAM: BP (!) 124/48 Pulse 87 Temp 36.8 ?C (98.2 ?F) (Oral) Resp 18 Ht 163 cm (5' 4.17 ) Wt 84.7 kg (186 lb 12.8 oz) SpO2 99% BMI 31.89 kg/m? General Appearance: alert and oriented, appearing in no acute distress Skin: skin color, texture, turgor normal, no suspicious rashes or lesions. Head: normal. Eyes: Anicteric sclera. Pupils are equally round. Extraocular movements are intact. . Ears: external ears normal Neck: Supple, no adenopathy; thyroid symmetric, normal size, no bruits. Back:no pain with ambulation Lungs: good air exchange overall Heart: RRR Abdomen: No obvious evidence of rebound tenderness or guarding Extremities: Extremities normal. No deformities, edema, or skin discoloration. Good capillary refill.. Musculoskeletal: Spine range of motion normal. Muscular strength intact. Peripheral Pulses: Normal. Neurologic: Gait normal. No gross cerebellar defects Psychiatric: the patient has an appropriate affect Hemoglobin (g/dL) Date Value 06/21/2018 8.8 Hematocrit (%) Date Value 06/21/2018 29.5 WBC (k/uL) Date Value 06/21/2018 8.49 Platelet Count (k/uL) Date Value 06/21/2018 255 ASSESSMENT/PLAN: 1. Iron deficiency anemia, unspecified iron deficiency anemia type - ICD9: 280.9, ICD10: D50.9 (primary diagnosis) injectafer 06/28 and then see me 07/19 for labs and clinical follow up She is set to see REPAIRER CYLINDER HEADS 07/08/18 My plan will be injectafer therapy for now to replenish iron stores - ABS GRAN CT + CBC (FOR REMOTE [facility] USE) 2. Vaginal bleeding - ICD9: 623.8, ICD10: N93.9 See above - ABS GRAN CT + CBC (FOR REMOTE [facility] USE) Sylvia Chin MD Referring Provider: FOR[place] SUMNER , PRIETO HIDALGO [[id number]] Allergies As of Date: 06/23/2018 Noted Allergy Reaction CODEINE 06/17/2018 16 - Unknown Date Reviewed: 06/23/2018 Reviewed by: Gita Escobar - Fully Assessed Reason for Visit: Iron deficiency anemia,unspecified [Other] Cmt: 5 day follow up Primary Visit Diagnosis:Iron deficiency anemia, unspecified iron deficiency anemia type [D50.9] Other Visit Diagnosis:Vaginal bleeding [N93.9] Order(s):ABS GRAN CT + CBC (FOR REMOTE [facility] USE) [SQRAGCBC] Order #: [id number] STANDING Disposition: Return in about 4 weeks (around 07/19/2018). Follow-up and Disposition History Recorded Prescriptions as of 06/23/2018 Sig: VENTOLIN HFA 90 MCG/ACTUATION* ALBUTEROL SULFATE 2.5 MG/3 ML* CLARITIN-D 24 HOUR ORAL Take by mouth. SUDAFED ORAL Take by mouth. Problem List As Of Date 06/23/2018 Noted Resolved Iron deficiency anemia [D50.9] INVALID FOR* Vaginal bleeding [N93.9] INVALID FOR* Encounter Status:Closed by SYLVIA CHIN MD on 06/23/18 Normal [facility] PROGRESSon 06-23-2018 Protein mass conc HNO ID: [id number] Author: Sylvia Chin Service: (none) Author Type: Physician Type: Progress Notes Filed: 06/23/2018 2:58 PM Note Text: MARVEL Griffiths is a 48 year old female who presents in follow up post injectafer and transfusion. She will see REPAIRER CYLINDER HEADS 07/08/18. I will plan on injectafer next week, see her in 3 weeks after that and plan on additional injectafer depending on response. She presented June 18, 2018 with iron deficiency and vaginal bleeding. Since March she has had intractable vaginal bleeding which has been quite heavy. She presented with microcytic anemia with a hemoglobin down to 5.5 with microcytosis. She had ice craving, severe dyspnea on exertion consistent with severe anemia. She was put on oral iron the week before presentation but had terrible constipation and GI symptoms related to this. Results for SARAH BETH GRIFFITHS ( ) as of 06/23/2018 14:57 Ref. Range 06/18/2018 09:31 Vitamin B12 Latest Ref Range: 232 - 1,245 pg/mL 378 Folate Latest Ref Range: >4.7 ng/mL 16.8 Ferritin Latest Ref Range: 14.7 - 205.1 ng/mL 7.5 (L) Iron Latest Ref Range: 41 - 186 ug/dL 14 (L) TIBC Latest Ref Range: 232 - 386 ug/dL 486 (H) Transferrin Saturation Latest Ref Range: 15 - 57 % 3 (L) Hematocrit Latest Ref Range: 36.0 - 46.0 % 21.8 (L) TSH Latest Ref Range: 0.400 - 5.500 uU/mL 1.360 Current Outpatient Prescriptions: VENTOLIN HFA 90 mcg/actuation inhaler albuterol (PROVENTIL) 2.5 mg /3 mL (0.083 %) nebulizer solution loratadine/pseudoeph edrine (CLARITIN-D 24 HOUR ORAL) Take by mouth. pseudoephedrine HCl (SUDAFED ORAL) Take by mouth. No current facility-administere d medications for this visit. ALLERGIES Allergen Reactions - Codeine Unknown REVIEW OF SYSTEMS GENERAL: No weight loss, malaise or fevers., SEE HPI HEENT: Negative for frequent or significant headaches, No changes in hearing or vision, no nose bleeds or other nasal problems NECK: Negative for lumps, goiter, pain and significant neck swelling RESPIRATORY: Negative for cough, wheezing or shortness of breath. CARDIOVASCULAR: Negative for chest pain, leg swelling or palpitations. GI: Negative for abdominal discomfort, blood in stools or black stools or change in bowel habits MUSCULOSKELETAL: Negative for joint pain or swelling, back pain or muscle pain. SKIN: Negative for lesions, rash, and itching. PSYCH: Negative for sleep disturbance, mood disorder and recent psychosocial stressors. HEMATOLOGY/LYMPHOLOG Y: Negative for prolonged bleeding, bruising easily or swollen nodes. NEURO: No history of headaches, syncope, paralysis, seizures or tremors All other reviewed and negative other than HPI. PHYSICAL EXAM: BP (!) 124/48 Pulse 87 Temp 36.8 ?C (98.2 ?F) (Oral) Resp 18 Ht 163 cm (5' 4.17 ) Wt 84.7 kg (186 lb 12.8 oz) SpO2 99% BMI 31.89 kg/m? General Appearance: alert and oriented, appearing in no acute distress Skin: skin color, texture, turgor normal, no suspicious rashes or lesions. Head: normal. Eyes: Anicteric sclera. Pupils are equally round. Extraocular movements are intact. . Ears: external ears normal Neck: Supple, no adenopathy; thyroid symmetric, normal size, no bruits. Back:no pain with ambulation Lungs: good air exchange overall Heart: RRR Abdomen: No obvious evidence of rebound tenderness or guarding Extremities: Extremities normal. No deformities, edema, or skin discoloration. Good capillary refill.. Musculoskeletal: Spine range of motion normal. Muscular strength intact. Peripheral Pulses: Normal. Neurologic: Gait normal. No gross cerebellar defects Psychiatric: the patient has an appropriate affect Hemoglobin (g/dL) Date Value 06/21/2018 8.8 Hematocrit (%) Date Value 06/21/2018 29.5 WBC (k/uL) Date Value 06/21/2018 8.49 Platelet Count (k/uL) Date Value 06/21/2018 255 ASSESSMENT/PLAN: 1. Iron deficiency anemia, unspecified iron deficiency anemia type - ICD9: 280.9, ICD10: D50.9 (primary diagnosis) injectafer 06/28 and then see me 07/19 for labs and clinical follow up She is set to see REPAIRER CYLINDER HEADS 07/08/18 My plan will be injectafer therapy for now to replenish iron stores - ABS GRAN CT + CBC (FOR REMOTE [facility] USE) 2. Vaginal bleeding - ICD9: 623.8, ICD10: N93.9 See above - ABS GRAN CT + CBC (FOR REMOTE [facility] USE) Sylvia Chin MD Normal [facility] Remote CBCDIF (for FH use o nly)on 06-21-2018 Abs Baso 0.04 k/uL Normal <0.11 [facility] Comment on above: Performed By: #### R CBCDF #### [facility] [address] [place] [address] Abs [place] 0.52 k/uL Normal <0.87 [facility] Comment on above: Performed By: #### R CBCDF #### [place] [id number] [place] [address] Abs Neut 6.98 k/uL Normal 1.45-7.50 [facility] Comment on above: Performed By: #### R CBCDF #### [place] [phone] Basophils/100 WBC (Bld) 0.5 % Normal [facility] Comment on above: Performed By: #### R CBCDF #### [place] [phone] Comment WBC=8.49.AGC=6.98/PL T=255 Normal [facility] Comment on above: Result Comment: Samp le checked for a clot. Preliminary result. Interpret with caution. Final results may vary. Results requested and read back by: AIDAN/BELEM/1152/06/21/18/LATONYA Performed By: #### R CBCDF #### [place] [phone] Eosinophils #/vol (Bld) 0.15 10*3/uL Normal <0.46 [facility] [place] Comment on above: Performed By: #### R CBCDF #### [place] [address] [place], [place] [address] Eosinophils/100 WBC (Bld) 1.8 % Normal [facility] [place] Comment on above: Performed By: #### R CBCDF #### [place] [address] [place] [address] Erythrocyte distribution width Ratio (RBC) 25.6 % High 11.5-15.0 [facility] [place] Comment on above: Performed By: #### R CBCDF #### [place] [address] [place] [phone] Hematocrit Volume Fraction (Bld) 29.5 % Low 36.0-46.0 [facility] [place] Comment on above: Performed By: #### R CBCDF #### [place] [phone] Hemoglobin mass conc (Bld) 8.8 g/dL Low 11.5-15.5 [facility] [place] Comment on above: Performed By: #### R CBCDF #### [place] [phone] Lymphocytes #/vol (Bld) 0.80 10*3/uL Low 1.00-4.00 [facility] [place] Comment on above: Performed By: #### R CBCDF #### [place] [phone] Lymphocytes/100 WBC (Bld) 9.4 % Normal [facility] [place] Comment on above: Performed By: #### R CBCDF #### [place] [phone] MCH Entitic mass (RBC) 20.8 pG Low 26.0-34.0 [facility] Comment on above: Performed By: #### R CBCDF #### [place] [phone] MCHC mass conc (RBC) 29.8 g/dL Low 30.5-36.0 [facility] Comment on above: Performed By: #### R CBCDF #### [place] [phone] MCV Entitic volume (RBC) 69.6 fL Low 80.0-100.0 [facility] [place] Comment on above: Performed By: #### R CBCDF #### [place] [phone] Monocytes/100 WBC (Bld) 6.1 % Normal [facility] [place] Comment on above: Performed By: #### R CBCDF #### [facility] [address] [place], [place] [address] Neutrophils/100 WBC (Bld) 82.2 % Normal [facility] [place] Comment on above: Performed By: #### R CBCDF #### [place] [address] [place] [address] Platelets #/vol (Bld) 255 10*3/uL Normal 150-400 [facility] Comment on above: Result Comment: No c lot detected. Performed By: #### R CBCDF #### [place] [address] [place] [phone] RBC #/vol (Bld) 4.24 10*6/uL Normal 3.90-5.20 [facility] Comment on above: Performed By: #### R CBCDF #### [place] [address] [place] [phone] WBC #/vol (Bld) 8.49 10*3/uL Normal 3.70-11.00 [facility] Comment on above: Result Comment: Resu lt rechecked. Performed By: #### R CBCDF #### [place] [address] [place] [phone] CNOVSPon 06-18-2018 [facility] Visit (SP) Office ([place]) SARAH BETH GRIFFITHS ([id number]) 1970 F Date Time Provider Department 06/18/18 8:30 AM SYLVIA CHIN During your visit today, we recorded the following information about you: Temperature Pulse Respiration Blood pressure 97.8 degrees 84/minute 18/minute 131/49 Weight Height Last Period 85.4 kg 1.63 m 03/30/18 Sylvia Chin MD 06/18/2018 8:57 AM Signed HPI Sarah Beth Griffiths is a 48 year old female who presents in consultation June 18, 2018 with iron deficiency and vaginal bleeding. Since March she has had intractable vaginal bleeding which has been quite heavy. She presents with microcytic anemia with a hemoglobin down to 5.5 with microcytosis. She has ice craving, severe dyspnea on exertion consistent with severe anemia. She was put on oral iron last week but has terrible constipation and GI symptoms related to this. I will stop her oral iron today because of this. PAST MEDICAL HISTORY Diagnosis Date - Low hemoglobin No past surgical history on file. Social History Substance Use Topics - Smoking status: Current Every Day Smoker - Smokeless tobacco: Never Used - Alcohol use Yes Comment: social No family history on file. Current Outpatient Prescriptions: VENTOLIN HFA 90 mcg/actuation inhaler albuterol (PROVENTIL) 2.5 mg /3 mL (0.083 %) nebulizer solution loratadine/pseudoeph edrine (CLARITIN-D 24 HOUR ORAL) Take by mouth. pseudoephedrine HCl (SUDAFED ORAL) Take by mouth. No current facility-administere d medications for this visit. ALLERGIES Allergen Reactions - Codeine Unknown REVIEW OF SYSTEMS GENERAL: +severe fatigue HEENT: Negative for frequent or significant headaches, No changes in hearing or vision, no nose bleeds or other nasal problems NECK: Negative for lumps, goiter, pain and significant neck swelling RESPIRATORY: +HENNESSY CARDIOVASCULAR: Negative for chest pain, leg swelling or palpitations. GI: +constipation which is getting worse MUSCULOSKELETAL: Negative for joint pain or swelling, back pain or muscle pain. SKIN: Negative for lesions, rash, and itching. REPAIRER CYLINDER HEADS: heavy vaginal bleeding PSYCH: Negative for sleep disturbance, mood disorder and recent psychosocial stressors. HEMATOLOGY/LYMPHOLOG Y: Negative for prolonged bleeding, bruising easily or swollen nodes. NEURO: No history of headaches, syncope, paralysis, seizures or tremors All other reviewed and negative other than HPI. PHYSICAL EXAM: BP (!) 131/49 Pulse 84 Temp 36.6 ?C (97.8 ?F) (Oral) Resp 18 Ht 163 cm (5' 4.17 ) Wt 85.4 kg (188 lb 3.2 oz) LMP 03/30/2018 SpO2 100% BMI 32.13 kg/m? General Appearance: alert and oriented, appearing in no acute distress Skin: skin color, texture, turgor normal, no suspicious rashes or lesions. Head: normal. Eyes: Anicteric sclera. Pupils are equally round. Extraocular movements are intact. . Ears: external ears normal Neck: Supple, no adenopathy; thyroid symmetric, normal size, no bruits. Back:no pain with ambulation Lungs: Heart: Abdomen: Extremities: Extremities normal. No deformities, edema, or skin discoloration. Good capillary refill.. Musculoskeletal: Spine range of motion normal. Muscular strength intact. Peripheral Pulses: Normal. Neurologic: Gait normal. No gross cerebellar defects Psychiatric: the patient has an appropriate affect No results found for: HB, HCT, WBC, PLT ASSESSMENT/PLAN: 1. Iron deficiency anemia, unspecified iron deficiency anemia type - ICD9: 280.9, ICD10: D50.9 (primary diagnosis) 1. Severe iron deficiency anemia secondary to vaginal bleeding- will proceed with immediate 2 unit transfusion 2. Bad tolerance to oral iron- will stop oral iron now and proceed with IV iron beginning next week 3. Refer to REPAIRER CYLINDER HEADS for intractable vaginal bleeding. DDX considered. She has had severe vaginal bleeding since March and will need to see immediate REPAIRER CYLINDER HEADS for workup and diagnosis. - VENTOLIN HFA 90 MCG/ACTUATION AEROSOL INHALER - ALBUTEROL SULFATE 2.5 MG/3 ML (0.083 %) SOLUTION FOR NEBULIZATION - FERROUS SULFATE 325 MG (65 MG IRON) TABLET - CLARITIN-D 24 HOUR ORAL - SUDAFED ORAL - TRANSFUSION-BLOOD - CONSULT TO GYNECOLOGY 2. Vaginal bleeding - ICD9: 623.8, ICD10: N93.9 See above - VENTOLIN HFA 90 MCG/ACTUATION AEROSOL INHALER - ALBUTEROL SULFATE 2.5 MG/3 ML (0.083 %) SOLUTION FOR NEBULIZATION - FERROUS SULFATE 325 MG (65 MG IRON) TABLET - CLARITIN-D 24 HOUR ORAL - SUDAFED ORAL - TRANSFUSION-BLOOD - CONSULT TO GYNECOLOGY Sylvia Chin MD Referring Provider: MACIEL GARZA, PRIETO HIDALGO [[id number]] Allergies As of Date: 06/18/2018 Noted Allergy Reaction CODEINE 06/17/2018 16 - Unknown Date Reviewed: 06/18/2018 Reviewed by: Yadi Cisneros - Fully Assessed Reason for Visit: low hemoglobin [Other] Cmt: new patient consult Primary Visit Diagnosis:Iron deficiency anemia, unspecified iron deficiency anemia type [D50.9] Other Visit Diagnosis:Vaginal bleeding [N93.9] Order(s):TRANSFUSION -BLOOD [[id number]] Order #: [id number] CONSULT TO GYNECOLOGY [9013] Order #: [id number]: 1 Disposition: Return in about 5 days (around 06/23/2018). Follow-up and Disposition History Recorded Prescriptions as of 06/18/2018 Sig: VENTOLIN HFA 90 MCG/ACTUATION* ALBUTEROL SULFATE 2.5 MG/3 ML* CLARITIN-D 24 HOUR ORAL Take by mouth. SUDAFED ORAL Take by mouth. Problem List As Of Date 06/18/2018 Noted Resolved Iron deficiency anemia [D50.9] INVALID FOR* Vaginal bleeding [N93.9] INVALID FOR* Encounter Status:Closed by SYLVIA CHIN MD on 06/18/18 Normal [facility] [place] Ferritinon 06-18-2018 Ferritin mass conc 7.5 ng/mL Low 14.7-205.1 [facility] Comment on above: Performed By: #### I YEE, B12, SERFOL, FERR, TSH, MMA #### [facility] [address] [place] [address] Folate, Serumon 06-18-2018 Folate mass conc 16.8 ng/mL Normal >4.7 [facility] Comment on above: Performed By: #### I YEE, B12, SERFOL, FERR, TSH, MMA #### [facility] [address] [place] [address] Iron and TIBCon 06-18-2018 Iron mass conc 14 ug/dL Low 41-186 [facility] [place] Comment on above: Performed By: #### I YEE, B12, SERFOL, FERR, TSH, MMA #### [facility] [address] [place], [place] [address] TIBC 486 ug/dL High 232-386 [facility] [place] Comment on above: Performed By: #### I YEE, B12, SERFOL, FERR, TSH, MMA #### [facility] [address] [place] [id number] Transferrin Saturatn 3 % Low 15-57 [facility] [place] Comment on above: Performed By: #### I YEE, B12, SERFOL, FERR, TSH, MMA #### [facility] [address] [place] [address] Methylmalonic Acidon 018 Methylmalonic Acid 156 nmol/L Normal 79-376 [facility] Comment on above: Result Comment: This test was developed and its performance characteristics determined by [facility] [place] ([facility]). It has not been cleared or approved by the FDA. [facility] is regulated under CLIA as qualified to perform high-complexity testing. This test is used for clinical purposes. It should not be regarded as investigational or for research. Performed By: #### I YEE, B12, SERFOL, FERR, TSH, MMA #### [facility] [address] [place] [address] PROGRESSon 06-18-2018 Protein mass conc HNO ID: [id number] Author: Sylvia Chin Service: (none) Author Type: Physician Type: Progress Notes Filed: 06/18/2018 8:57 AM Note Text: MARVEL Griffiths is a 48 year old female who presents in consultation June 18, 2018 with iron deficiency and vaginal bleeding. Since March she has had intractable vaginal bleeding which has been quite heavy. She presents with microcytic anemia with a hemoglobin down to 5.5 with microcytosis. She has ice craving, severe dyspnea on exertion consistent with severe anemia. She was put on oral iron last week but has terrible constipation and GI symptoms related to this. I will stop her oral iron today because of this. PAST MEDICAL HISTORY Diagnosis Date - Low hemoglobin No past surgical history on file. Social History Substance Use Topics - Smoking status: Current Every Day Smoker - Smokeless tobacco: Never Used - Alcohol use Yes Comment: social No family history on file. Current Outpatient Prescriptions: VENTOLIN HFA 90 mcg/actuation inhaler albuterol (PROVENTIL) 2.5 mg /3 mL (0.083 %) nebulizer solution loratadine/pseudoeph edrine (CLARITIN-D 24 HOUR ORAL) Take by mouth. pseudoephedrine HCl (SUDAFED ORAL) Take by mouth. No current facility-administere d medications for this visit. ALLERGIES Allergen Reactions - Codeine Unknown REVIEW OF SYSTEMS GENERAL: +severe fatigue HEENT: Negative for frequent or significant headaches, No changes in hearing or vision, no nose bleeds or other nasal problems NECK: Negative for lumps, goiter, pain and significant neck swelling RESPIRATORY: +HENNESSY CARDIOVASCULAR: Negative for chest pain, leg swelling or palpitations. GI: +constipation which is getting worse MUSCULOSKELETAL: Negative for joint pain or swelling, back pain or muscle pain. SKIN: Negative for lesions, rash, and itching. REPAIRER CYLINDER HEADS: heavy vaginal bleeding PSYCH: Negative for sleep disturbance, mood disorder and recent psychosocial stressors. HEMATOLOGY/LYMPHOLOG Y: Negative for prolonged bleeding, bruising easily or swollen nodes. NEURO: No history of headaches, syncope, paralysis, seizures or tremors All other reviewed and negative other than HPI. PHYSICAL EXAM: BP (!) 131/49 Pulse 84 Temp 36.6 ?C (97.8 ?F) (Oral) Resp 18 Ht 163 cm (5' 4.17 ) Wt 85.4 kg (188 lb 3.2 oz) LMP 03/30/2018 SpO2 100% BMI 32.13 kg/m? General Appearance: alert and oriented, appearing in no acute distress Skin: skin color, texture, turgor normal, no suspicious rashes or lesions. Head: normal. Eyes: Anicteric sclera. Pupils are equally round. Extraocular movements are intact. . Ears: external ears normal Neck: Supple, no adenopathy; thyroid symmetric, normal size, no bruits. Back:no pain with ambulation Lungs: Heart: Abdomen: Extremities: Extremities normal. No deformities, edema, or skin discoloration. Good capillary refill.. Musculoskeletal: Spine range of motion normal. Muscular strength intact. Peripheral Pulses: Normal. Neurologic: Gait normal. No gross cerebellar defects Psychiatric: the patient has an appropriate affect No results found for: HB, HCT, WBC, PLT ASSESSMENT/PLAN: 1. Iron deficiency anemia, unspecified iron deficiency anemia type - ICD9: 280.9, ICD10: D50.9 (primary diagnosis) 1. Severe iron deficiency anemia secondary to vaginal bleeding- will proceed with immediate 2 unit transfusion 2. Bad tolerance to oral iron- will stop oral iron now and proceed with IV iron beginning next week 3. Refer to REPAIRER CYLINDER HEADS for intractable vaginal bleeding. DDX considered. She has had severe vaginal bleeding since March and will need to see immediate REPAIRER CYLINDER HEADS for workup and diagnosis. - VENTOLIN HFA 90 MCG/ACTUATION AEROSOL INHALER - ALBUTEROL SULFATE 2.5 MG/3 ML (0.083 %) SOLUTION FOR NEBULIZATION - FERROUS SULFATE 325 MG (65 MG IRON) TABLET - CLARITIN-D 24 HOUR ORAL - SUDAFED ORAL - TRANSFUSION-BLOOD - CONSULT TO GYNECOLOGY 2. Vaginal bleeding - ICD9: 623.8, ICD10: N93.9 See above - VENTOLIN HFA 90 MCG/ACTUATION AEROSOL INHALER - ALBUTEROL SULFATE 2.5 MG/3 ML (0.083 %) SOLUTION FOR NEBULIZATION - FERROUS SULFATE 325 MG (65 MG IRON) TABLET - CLARITIN-D 24 HOUR ORAL - SUDAFED ORAL - TRANSFUSION-BLOOD - CONSULT TO GYNECOLOGY Syvlia Chin MD Normal [facility] [place] Remote CBCDIF (for [facility] use o nly)on 06-18-2018 Abs Baso 0.03 k/uL Normal 0.00-0.10 [facility] [place] Comment on above: Performed By: #### R CBCDF #### [facility] [address] [place], [place] [address] Abs [place] 0.63 k/uL Normal 0.00-0.86 [facility] [place] Comment on above: Performed By: #### R CBCDF #### [facility] [address] [place], [place] [address] Abs Neut 6.40 k/uL Normal 1.45-7.50 [facility] [place] Comment on above: Performed By: #### R CBCDF #### [facility] [address] [place], [place] [address] Basophils/100 WBC (Bld) 0.4 % Normal [facility] [place] Comment on above: Performed By: #### R CBCDF #### [place] [address] [place], [place] [address] Comment [id number] Normal [facility] [place] Comment on above: Result Comment: Gregoria ferris checked for a clot. Preliminary result. Interpret with caution. Final results may vary. Results requested and read back by: AIDAN/BELEM/945/9/LATONYA Performed By: #### R CBCDF #### [place] [address] [place] [address] Eosinophils #/vol (Bld) 0.14 10*3/uL Normal 0.00-0.45 [facility] [place] Comment on above: Performed By: #### R CBCDF #### [place] [address] Eosinophils/100 WBC (Bld) 1.7 % Normal [facility] [place] Comment on above: Performed By: #### R CBCDF #### [place] [address] Erythrocyte distribution width Ratio (RBC) 21.1 % High 11.5-15.0 [facility] [place] Comment on above: Performed By: #### R CBCDF #### [place] [address] Hematocrit Volume Fraction (Bld) 21.8 % Low 36.0-46.0 [facility] [place] Comment on above: Performed By: #### R CBCDF #### [address] [address] Hemoglobin mass conc (Bld) 6.0 g/dL Low 11.5-15.5 [facility] [place] Comment on above: Performed By: #### R CBCDF #### [address] [address] Lymphocytes #/vol (Bld) 1.05 10*3/uL Normal 1.00-4.00 [facility] [place] Comment on above: Performed By: #### R CBCDF #### [facility] [address] [place], [place] [address] Lymphocytes/100 WBC (Bld) 12.7 % Normal [facility] [place] Comment on above: Performed By: #### R CBCDF #### [place] [address] [place], [place] [address] MCH Entitic mass (RBC) 18.1 pG Low 26.0-34.0 [facility] Comment on above: Performed By: #### R CBCDF #### [place] [address] [place] [address] MCHC mass conc (RBC) 27.5 g/dL Low 30.5-36.0 [facility] Comment on above: Performed By: #### R CBCDF #### [place] [address] MCV Entitic volume (RBC) 65.7 fL Low 80.0-100.0 [facility] [place] Comment on above: Performed By: #### R CBCDF #### [place] [address] [place] [id number] Monocytes/100 WBC (Bld) 7.6 % Normal [facility] [place] Comment on above: Performed By: #### R CBCDF #### [place] [address] [place], [place] [address] Neutrophils/100 WBC (Bld) 77.6 % Normal [facility] [place] Comment on above: Performed By: #### R CBCDF #### [place] [address] [place] [address] Platelet mean volume Entitic volume (Bld) 11.0 fL Normal 9.0-12.7 [facility] [place] Comment on above: Performed By: #### R CBCDF #### [place] [address] [place] [id number] Platelets #/vol (Bld) 286 10*3/uL Normal 150-400 [facility] Comment on above: Result Comment: Resu lt checked and verified No clot detected. Performed By: #### R CBCDF #### [place] [address] RBC #/vol (Bld) 3.32 10*6/uL Low 3.90-5.20 [facility] Comment on above: Performed By: #### R CBCDF #### [place] [address] WBC #/vol (Bld) 8.25 10*3/uL Normal 3.70-11.00 [facility] Comment on above: Performed By: #### R CBCDF #### [place] [address] TSHon 06-18-2018 Thyrotropin Qn 1.360 uU/mL Normal 0.400-5.500 [facility] Comment on above: Result Comment: If t he patient is , TSH reference range varies by gestational period: First Trimester 0.100-2.500 uU/mL Second Trimester 0.200-3.000 uU/mL Third Trimester 0.300-3.000 uU/mL References: 1. Logan L, Tommy M, Jason EK, et al. Management of Thyroid Dysfunction during and : An Endocrine Society Clinical Practice Guideline. J Clin Endocrinol Metab, 2012:97:3869-3817. 2. Chris ACEVEDO. Overview of thyroid disease in . UpToDate. 2016. Accessed on March 14, 2016. Performed By: #### I YEE, B12, SERFOL, FERR, TSH, MMA #### [place] [address] [place] [address] Vitamin B12on 06-18-2018 Cobalamin (Vitamin B12) mass conc 378 pg/mL Normal 232-1245 [facility] Comment on above: Performed By: #### I YEE, B12, SERFOL, FERR, TSH, MMA #### [address] [place], [place] [address] Encounters Encounter Date Encounter Type Care Provider Facility Start: 05-28-[address] STEPHANIE FLEMING Facility :[facility] Start: 04-02-2022 End: 04-03-[address] STEPHANIE FLEMING Facility:[facility] Start: 03-25-[address] STEPHANIE FLEMING Facility :[facility] Start: 10-17-[address] STEPHANIE FLEMING Facility :[facility] Start: 10-15-2018 End: 10-15-2018 Patient encounter procedure SYLVIA CHIN [facility] Start: 10-13-2018 Patient encounter procedure SYLVIA CHIN [facility] Start: 08-24-2018 End: 08-24-2018 Patient encounter procedure SYLVIA CHIN [facility] Start: 07-16-2018 End: 07-19-2018 Patient encounter procedure SYLVIA CHIN [facility] Start: 06-28-2018 End: 06-28-2018 Patient encounter procedure SYLVIA Chin GIUSEPPE [facility] Start: 06-28-2018 End: 06-29-2018 Patient encounter procedure SYLVIA CHIN [facility] Start: 06-23-2018 End: 06-24-2018 Patient encounter procedure SYLVIA CHIN [facility] Start: 06-21-2018 End: 06-22-2018 Patient encounter procedure SYLVIA CHIN [facility] Start: 06-18-2018 End: 06-21-2018 Patient encounter procedure SYLVIA CHIN [facility] Payers Date Payer Category Payer Unknown [id number] .[id number] 1970 Unknown [id number] .[id number] [id number] 1970 Unknown [id number] .[id number] [id number] 1970 Unknown [id number] 1961 Self-pay [id number] 1961 Unknown [id number] Summary Purpose Family History No Family History Records FoundNo Family History Records FoundNo Family History Records Found Advance Directives No Advanced Directives Records FoundNo Advanced Directives Records FoundNo Advanced Directives Records Found Additional Source Comments INFORMATION SOURCE (unrecogn ized section and content) DATE CREATED AUTHOR 10/24/2018 [facility] DATE CREATED AUTHOR AUTHOR'S ORGANIZ ATION 03/27/2022 [facility] DATE CREATED AUTHOR AUTHOR'S ORGANIZ ATION 05/26/2022 [facility] vic FOR RECORDS PERTAINING TO PATIENTS WHO ARE OR HAVE BEEN ENROLLED IN A CHEMICAL DEPENDENCY/SUBSTANCEABUSE PROGRAM, SOME INFORMATION MAY BE OMITTED. This clinical summary was aggregated from multiple sources. Caution should be exercised in using it in the provision of clinical care. This summary normalizes information from multiple sources, and as a consequence, information in this document may materially change the coding, format and clinical context of patient data. In addition, data may be omitted in some cases. CLINICAL DECISIONS SHOULD BE BASED ON THE PRIMARY CLINICAL RECORDS. [facility] [email or web address] [facility]. provides no warranty or guarantee of the accuracy or completeness of information in this document.
--- NOTE | 2023-10-07 12:56 | US_ITS ---
The [address] [address] Patient Name: MAKAYLA GRIFFITHS MRN: [id number] date: 1970 Sex: F Assigned Patient Location: US Current Patient Location: US Accession/Order Number: [id number] Exam Date: 10/07/2023 12:57 Report Date: 10/07/2023 14:59 At the request of: SETPHANIE FLEMING Procedure: US soft tissue head and neck EXAM: US soft tissue head and neck HISTORY: neck mass R22.1 mid left clavicle lump for 2 weeks; posterior left neck lump for one year COMPARISON: None. TECHNIQUE: Percutaneous ultrasound FINDINGS: No mass or fluid collection in region of left mid clavicle. Patent slightly prominent vessels are noted. Within posterior left neck corresponding to patient's palpable lump is a subcutaneous homogeneous 3.2 x 1.0 x 4.1 cm mass; no significant internal blood flow on color Doppler. US/US soft tissue head and neck IMPRESSION: 1. Nonspecific subcutaneous mass corresponding to posterior left neck lump. Consider ultrasound-guided tissue sampling. 2. No mass or fluid collection associated with the left clavicle palpable sensation. Electronically authenticated by: AIDEN NOGUEIRA Date: 10/07/2023 14:59
== END 2023-10-07 12:53 | disposition home or self-care (01) ==
LOC: US 12:52
PROVIDERS: PCP Family Medicine; Visit Provider Family Medicine
DX: R22.1 Localized swelling, mass and lump, neck (principal)
CPT/HCPCS: 76536

== ENCOUNTER 2023-11-12 10:47 | Day surgery (SDC) | payer BC, SELFPAY ==
--- NOTE | 2023-11-12 10:50 | US_ITS ---
[address] [address] Patient Name: MAKAYLA GRIFFITHS MRN: [id number] date: 1970 Sex: F Assigned Patient Location: US Current Patient Location: Accession/Order Number: [id number] Exam Date: 11/12/2023 11:20 Report Date: 11/12/2023 13:23 At the request of: STEPHANIE FLEMING Procedure: US biopsy FNA EXAMINATION: US biopsy FNA HISTORY: left neck mass COMPARISON: Ultrasound soft tissue head and neck 10/07/2023 TECHNIQUE: After obtaining informed consent, an ultrasound-guided biopsy was performed in the usual sterile manner. FINDINGS: IMAGING: Ultrasound guidance BIOPSY NEEDLE: 25-gauge; 3 separate passes SPECIMEN TYPE, #, LOCATION: Thick, liquid-like substance; 3 separate samples; subcutaneous, homogeneous, thin-walled mass versus fluid collection posterior left neck MEDICATION: 1% buffered lidocaine for local anesthesia. COMPLICATIONS: None. LABORATORY: Pending OTHER: Negative. US/US biopsy FNA IMPRESSION: Uneventful ultrasound guided biopsy. The patient was instructed to obtain follow up care and biopsy results from the referring physician. Electronically authenticated by: AIDEN NOGUEIRA Date: 11/12/2023 13:23
[2023-11-12 10:55] VITALS: BP 108/65; PULSE 76; O2SAT 98
--- OUTSIDE RECORDS SUMMARY | 2023-11-12 11:01 | XMS_ITS | CCD ---
Demographics Address [address] [place] [address] Preferred Language en Marital Status Rastafarian Affiliation Unknown Race White Ethnic Group Unknown Author Name Unknown Address [address] [facility] [address] [place] [address] Organization [facility] Care Team Providers Care Floral Merchandiser Name Role Phone ADELINANING, SYLVIA Chin Attending [...] Unavailable MIRLANDE, DR ENMANUEL Soliz Consulting Unavailable BERNADTETE, DR BROWN Attending Unavailable BERNADETTE, DR BROWN Primary Care Unavailable BERNADETTE, DR BROWN Admitting Unavailable Allergies Allergy Classification Reported Allergen(s) Allergy Type Date of Onset Reaction(s) Facility (2 sources) Codeine; Translations: [CODEINE] Drug Allergy 06-17-2018 [facility] Repository (1 source) bee venom Drug allergy (disorder) [facility] Repository (1 source) Grass pollen Drug allergy (disorder) [facility] Repository (1 source) house dust allergenic extract Drug Allergy [facility] Repository (1 source) Mold Extract Drug Allergy [facility] Repository (1 source) Penicillin Drug Allergy [facility] Repository (1 source) Ragweed Drug allergy (disorder) [facility] Repository Problems Active Problems Problem Classification Problem [...] : DR STEPHANIE FLEMING . Admission #: [id number] Family : Order #: [id number] CLICK HERE TO VIEW EXAM RADIOLOGY REPORT [...] breast cancer at age 68. LOCATION: [facility] BREAST COMPOSITION: Heterogeneously dense,which may obscure small [...] M.D. on 04/03/2022 at 14:47 Normal [facility] Stool Occult Bl. Scr. (Immun o)on 03-12-2022 Stool Occult Bl. Scr. (Immuno) Occult Blood (Immuno) Negative for Occult Blood by Immunochemical Methodology Reference range = Negative PERFORMED BY: [place] [address] PATHOLOGIST JUNIOR SALES REPRESENTATIVE TEJAS HARP M.D. Normal [facility] Comment on above: Performed By: #### O BS-IMMUNO #### [facility] [address] [place], [place] [id number] [facility] A1C with Estimated Average G ryan 03-11-2022 Glucose [Mass/Vol] 154 mg/dL Normal [facility] Comment on above: Result Comment: PERF ORMED BY: [place] [address] PATHOLOGIST JUNIOR SALES REPRESENTATIVE TEJAS HARP M.D. Performed By: #### T 3F, A1C WTH eA, SCAN CBC, TSH3, [id number], CMP, LIPID, T4T #### [facility] [address] [place] [id number] [facility] HbA1c (Bld) [Mass fraction] 7.0 % High 4.3-5.6 [facility] Comment on above: Result Comment: Incr eased risk for diabetes: 5.7 - 6.4 diabetes: >6.4 glycemic control for adults with diabetes: <7.0 Performed By: #### T 3F, A1C WTH eA, SCAN CBC, TSH3, [id number], CMP, LIPID, T4T #### [facility] [address] Comprehensive Metabolic Pane mary 03-11-2022 Albumin [Mass/Vol] 3.7 g/dL Normal 3.2-5.5 [facility] Comment on above: Performed By: #### T 3F, A1C WTH eA, SCAN CBC, TSH3, [id number], CMP, LIPID, T4T #### [address] Albumin/Globulin [Mass ratio] 1.2 {ratio} Normal [facility] Comment on above: Performed By: #### T 3F, A1C WTH eA, SCAN CBC, TSH3, [id number], CMP, LIPID, T4T #### [facility] [address] ALP [Catalytic activity/Vol] 95 U/L High 32-92 [facility] Comment on above: Performed By: #### T 3F, A1C WTH eA, SCAN CBC, TSH3, [id number], CMP, LIPID, T4T #### [address] ALT [Catalytic activity/Vol] 21 U/L Normal 10-60 [facility] Comment on above: Performed By: #### T 3F, A1C WTH eA, SCAN CBC, TSH3, [id number], CMP, LIPID, T4T #### [facility] [address] [place] [address] [place] AST [Catalytic activity/Vol] 20 U/L Normal 10-42 [facility] Comment on above: Performed By: #### T 3F, A1C WTH eA, SCAN CBC, TSH3, [id number], CMP, LIPID, T4T #### [facility] [address] [place] [address] [place] Bilirubin [Mass/Vol] 0.4 mg/dL Normal 0.3-1.2 [facility] Comment on above: Performed By: #### T 3F, A1C WTH eA, SCAN CBC, TSH3, [id number], CMP, LIPID, T4T #### [facility] [address] Calcium [Mass/Vol] 9.2 mg/dL Normal 8.2-10.2 [facility] Comment on above: Performed By: #### T 3F, A1C WTH eA, SCAN CBC, TSH3, [id number], CMP, LIPID, T4T #### [facility] [address] Chloride [Moles/Vol] 101 mmol/L Normal 95-114 [facility] Comment on above: Performed By: #### T 3F, A1C WTH eA, SCAN CBC, TSH3, [id number], CMP, LIPID, T4T #### [facility] [address] CO2 [Moles/Vol] 24.8 mmol/L Normal 22.0-30.0 [facility] Comment on above: Performed By: #### T 3F, A1C WTH eA, SCAN CBC, TSH3, [id number], CMP, LIPID, T4T #### [facility] [address] Creatinine [Mass/Vol] 0.71 mg/dL Normal 0.44-1.03 [facility] Comment on above: Performed By: #### T 3F, A1C WTH eA, SCAN CBC, TSH3, [id number], CMP, LIPID, T4T #### [facility] [address] [place] [address] [place] Estimated GFR ( Patricia > 60 Normal [facility] Comment on above: Result Comment: GFR estimated reference range: According to KDOQI guidelines, <60 ml/min/1.73m2 is sufficient to diagnose a patient with chronic kidney disease. Performed By: #### T 3F, A1C WTH eA, SCAN CBC, TSH3, [id number], CMP, LIPID, T4T #### [facility] [address] Estimated GFR (Non- Am > 60 [facility] Comment on above: Performed By: #### T 3F, A1C WTH eA, SCAN CBC, TSH3, [id number], CMP, LIPID, T4T #### [facility] [address] Globulin (S) [Mass/Vol] 3.0 g/dL [facility] Comment on above: Performed By: #### T 3F, A1C WTH eA, SCAN CBC, TSH3, [id number], CMP, LIPID, T4T #### [facility] [address] Glucose [Mass/Vol] 146 mg/dL High 70-100 [facility] Comment on above: Result Comment: [facility] Glucose Reference Range is dependent on time and content of last meal. Glucose of more than 200 mg/dL in a nonstressed, ambulatory subject supports the diagnosis of Diabetes Mellitus. ADA recommended reference range Performed By: #### T 3F, A1C WTH eA, SCAN CBC, TSH3, [id number], CMP, LIPID, T4T #### [facility] [address] Potassium [Moles/Vol] 3.8 mmol/L Normal 3.5-5.1 [facility] Comment on above: Performed By: #### T 3F, A1C WTH eA, SCAN CBC, TSH3, [id number], CMP, LIPID, T4T #### [facility] [address] Protein [Mass/Vol] 6.7 g/dL Normal 6.1-7.9 [facility] Comment on above: Performed By: #### T 3F, A1C WTH eA, SCAN CBC, TSH3, [id number], CMP, LIPID, T4T #### [facility] [address] Sodium [Moles/Vol] 139 mmol/L Normal 136-146 [facility] Comment on above: Performed By: #### T 3F, A1C WTH eA, SCAN CBC, TSH3, [id number], CMP, LIPID, T4T #### [facility] [address] [place] [id number] [place] Urea nitrogen [Mass/Vol] 11 mg/dL Normal 9-23 [facility] Comment on above: Performed By: #### T 3F, A1C WTH eA, SCAN CBC, TSH3, [id number], CMP, LIPID, T4T #### [facility] [address] [place] [phone] [facility] Lipid Panelon 03-11-2022 Cholesterol [Mass/Vol] 156 mg/dL Normal 140-200 [facility] Comment on above: Result Comment: Chol less than 200 mg/dl low risk Chol 201-239 mg/dl borderline risk Chol 240 mg/dl and greater high risk Performed By: #### T 3F, A1C WTH eA, SCAN CBC, TSH3, [id number], CMP, LIPID, T4T #### [facility] [address] Cholesterol in HDL [Mass/Vol] 52 mg/dL Normal 35-85 [facility] Comment on above: Result Comment: HDL CHOL ATP-III CLASSIFICATION Cardiovascular Risk HDL > or equal to 60 mg/dL LOW HDL < 40 mg/dL HIGH Performed By: #### T 3F, A1C WTH eA, SCAN CBC, TSH3, [id number], CMP, LIPID, T4T #### [facility] [address] [place] [id number] [facility] Cholesterol.total/Chol esterol in HDL [Mass ratio] 3.0 {ratio} Normal <5.0 [facility] Comment on above: Performed By: #### T 3F, A1C WTH eA, SCAN CBC, TSH3, [id number], CMP, LIPID, T4T #### [facility] [address] [place] [phone] [place] LDL Cholesterol,Calculated 90 mg/dL Normal 0-100 [facility] Comment on above: Result Comment: LDL ATP III CLASSIFICATION LDL less than 100 mg/dL Optimal LDL 100-129 mg/dL Near or above optimal LDL 130-159 mg/dL Borderline high LDL 160-189 mg/dL High LDL greater than 189 mg/dL Very high Performed By: #### T 3F, A1C WTH eA, SCAN CBC, TSH3, [id number], CMP, LIPID, T4T #### [address] Triglyceride w/Reflex 72 mg/dL Normal 35-149 [facility] Comment on above: Result Comment: TRIG ATP III CLASSIFICATION TRIG less than 150 mg/dL Normal TRIG 150-199 mg/dL Borderline high TRIG 200-500 mg/dL High TRIG greater than 500 mg/dL Very high Standard traceable to the Center for Disease Conrtrol and Prevention (CDC) test method. Performed By: #### T 3F, A1C WTH eA, SCAN CBC, TSH3, [id number], CMP, LIPID, T4T #### [address] VLDL CHOLESTEROL 14 mg/dL Normal [facility] Comment on above: Performed By: #### T 3F, A1C WTH eA, SCAN CBC, TSH3, [id number], CMP, LIPID, T4T #### [address] Scan and CBCon 03-11-2022 Basophils (Bld) [#/Vol] 0.0 10*3/uL Normal 0.0-0.2 [facility] Comment on above: Performed By: #### T 3F, A1C WTH eA, SCAN CBC, TSH3, [id number], CMP, LIPID, T4T #### [address] Basophils/100 WBC (Bld) 0.2 % Normal . [facility] Comment on above: Performed By: #### T 3F, A1C WTH eA, SCAN CBC, TSH3, [id number], CMP, LIPID, T4T #### [address] Eosinophils (Bld) [#/Vol] 0.2 10*3/uL Normal 0.0-0.45 [facility] Comment on above: Performed By: #### T 3F, A1C WTH eA, SCAN CBC, TSH3, [id number], CMP, LIPID, T4T #### [place] [address] [place] Eosinophils/100 WBC (Bld) 2.7 % Normal . [facility] Comment on above: Performed By: #### T 3F, A1C WTH eA, SCAN CBC, TSH3, [id number], CMP, LIPID, T4T #### [address] Erythrocyte distribution width (RBC) [Ratio] 12.9 % Normal 11.9-15.3 [facility] Comment on above: Performed By: #### T 3F, A1C WTH eA, SCAN CBC, TSH3, [id number], CMP, LIPID, T4T #### [address] Hematocrit (Bld) [Volume fraction] 42.4 % Normal 34.0-46.4 [facility] Comment on above: Performed By: #### T 3F, A1C WTH eA, SCAN CBC, TSH3, [id number], CMP, LIPID, T4T #### [address] Hemoglobin (Bld) [Mass/Vol] 14.1 g/dL Normal 11.8-15.4 [facility] Comment on above: Performed By: #### T 3F, A1C WTH eA, SCAN CBC, TSH3, [id number], CMP, LIPID, T4T #### [address] Large Platelets Slight Normal [facility] Comment on above: Result Comment: PERF ORMED BY: [place] [address] PATHOLOGIST JUNIOR SALES REPRESENTATIVE TEJAS HARP M.D. Performed By: #### T 3F, A1C WTH eA, SCAN CBC, TSH3, [id number], CMP, LIPID, T4T #### [address] Lymphocytes (Bld) [#/Vol] 0.7 10*3/uL Low 1.00-4.8 [facility] Comment on above: Performed By: #### T 3F, A1C WTH eA, SCAN CBC, TSH3, [id number], CMP, LIPID, T4T #### [address] Lymphocytes/100 WBC (Bld) 11.5 % Normal . [facility] Comment on above: Performed By: #### T 3F, A1C WTH eA, SCAN CBC, TSH3, [id number], CMP, LIPID, T4T #### [address] MCH (RBC) [Entitic mass] 30.1 pg Normal 24.7-34.3 [facility] Comment on above: Performed By: #### T 3F, A1C WTH eA, SCAN CBC, TSH3, [id number], CMP, LIPID, T4T #### [address] MCV (RBC) [Entitic vol] 90.2 fL Normal 80-100 [facility] Comment on above: Performed By: #### T 3F, A1C WTH eA, SCAN CBC, TSH3, [id number], CMP, LIPID, T4T #### [address] Mean Corpuscular HGB Conc 33.4 g/dL Normal 32.0-35.0 [facility] Comment on above: Performed By: #### T 3F, A1C WTH eA, SCAN CBC, TSH3, [id number], CMP, LIPID, T4T #### [address] Monocytes (Bld) [#/Vol] 0.5 10*3/uL Normal 0.0-0.8 [facility] Comment on above: Performed By: #### T 3F, A1C WTH eA, SCAN CBC, TSH3, [id number], CMP, LIPID, T4T #### [address] Monocytes/100 WBC (Bld) 8.1 % Normal . [facility] Comment on above: Performed By: #### T 3F, A1C WTH eA, SCAN CBC, TSH3, [id number], CMP, LIPID, T4T #### [facility] [address] [place] [address] [place] Neutrophils (Bld) [#/Vol] 4.4 10*3/uL Normal 1.8-7.7 [facility] Comment on above: Performed By: #### T 3F, A1C WTH eA, SCAN CBC, TSH3, [id number], CMP, LIPID, T4T #### [facility] [address] [place] [address] [place] Neutrophils/100 WBC (Bld) 77.5 % Normal . [facility] Comment on above: Performed By: #### T 3F, A1C WTH eA, SCAN CBC, TSH3, [id number], CMP, LIPID, T4T #### [place] [address] [place] Nucleated RBC/100 WBC (Bld) [Ratio] 0.0 % Normal 0-0.5 [facility] Comment on above: Performed By: #### T 3F, A1C WTH eA, SCAN CBC, TSH3, [id number], CMP, LIPID, T4T #### [address] Platelet Estimate Normal Normal Normal [facility] Comment on above: Performed By: #### T 3F, A1C WTH eA, SCAN CBC, TSH3, [id number], CMP, LIPID, T4T #### [address] Platelet mean volume (Bld) [Entitic vol] 10.9 fL High 6.3-10.7 [facility] Comment on above: Performed By: #### T 3F, A1C WTH eA, SCAN CBC, TSH3, [id number], CMP, LIPID, T4T #### [place] [address] [place] Platelets (Bld) [#/Vol] 180 10*3/uL Normal 150-450 [facility] Comment on above: Performed By: #### T 3F, A1C WTH eA, SCAN CBC, TSH3, [id number], CMP, LIPID, T4T #### [address] [place] [address] [place] RBC (Bld) [#/Vol] 4.70 10*6/uL Normal 3.60-5.00 [facility] Comment on above: Performed By: #### T 3F, A1C WTH eA, SCAN CBC, TSH3, [id number], CMP, LIPID, T4T #### [address] RBC morphology finding Nom (Bld) Normal Normal [facility] Comment on above: Performed By: #### T 3F, A1C WTH eA, SCAN CBC, TSH3, [id number], CMP, LIPID, T4T #### [address] WBC (Bld) [#/Vol] 5.6 10*3/uL Normal 4.5-11.0 [facility] Comment on above: Performed By: #### T 3F, A1C WTH eA, SCAN CBC, TSH3, [id number], CMP, LIPID, T4T #### [address] Thyroid Stimulating Hormoneo n 03-11-2022 TSH Qn 1.35 m[IU]/L Normal 0.45-5.33 [facility] Comment on above: Performed By: #### T 3F, A1C WTH eA, SCAN CBC, TSH3, [id number], CMP, LIPID, T4T #### [address] Thyroxine (T4) Totalon 03-11 T4 [Mass/Vol] 9.10 ug/dL Normal 5.39-11.82 [facility] Comment on above: Performed By: #### T 3F, A1C WTH eA, SCAN CBC, TSH3, [id number], CMP, LIPID, T4T #### [address] Triiodothyronine (T3) Freeon 03-11-2022 Triiodothyronine (T3) Free 4.04 pg/mL High 2.50-3.90 [facility] Comment on above: Result Comment: PERF ORMED BY: [address] [address] PATHOLOGIST JUNIOR SALES REPRESENTATIVE TEJAS HARP M.D. Performed By: #### T 3F, A1C WTH eA, SCAN CBC, TSH3, [id number], CMP, LIPID, T4T #### [place] [id number] [facility] Vitamin D 25 Hydroxy Totalon 03-11-2022 Vitamin D 25 Hydroxy Total 14.3 ng/mL Low 30-100 [facility] Comment on above: Result Comment: RADHA MIN D STATUS 25(OH)VITAMIN D RANGE (ng/mL) Deficient <20 Insufficient 20 to <30 Sufficient 30 to 100 Reference: Ilda MF,Sandi LUNSFORD, Gayle LOYA, et al. Evaluation,treatment, and prevention of vitamin D deficiency; an Endocrine Society clinical practice guideline. JCEM. 2010; 96(7):1911-30. PERFORMED BY: [place] [id number] PATHOLOGIST JUNIOR SALES REPRESENTATIVE TEJAS HARP M.D. Performed By: #### T 3F, A1C WTH eA, SCAN CBC, TSH3, [id number], CMP, LIPID, T4T #### [place] [id number] [facility] Ferritinon 10-15-2018 Ferritin mass conc 46.9 ng/mL Normal 14.7-205.1 [facility] Comment on above: Performed By: #### R CBCDF #### [facility] [employer] [address] [place], [place] [address] Iron and TIBCon 10-15-2018 Iron mass conc 69 ug/dL Normal 41-186 [facility] Comment on above: Performed By: #### R CBCDF #### [facility] [employer] [facility] [place], [place] [address] TIBC 366 ug/dL Normal 232-386 [facility] Comment on above: Performed By: #### R CBCDF #### [facility] [employer] [facility] [place], [place] [address] Transferrin Saturatn 19 % Normal 15-57 [facility] Comment on above: Performed By: #### R CBCDF #### [facility] [address] [place], [place] [address] Remote Abs Gran + CBC (for [facility] use only)on 10-15-2018 Absol Gran Count 6.30 k/uL Normal 1.45-7.50 [facility] Erythrocyte distribution width Ratio (RBC) 12.3 % Normal 11.5-15.0 [facility] Hematocrit Volume Fraction (Bld) 43.8 % Normal 36.0-46.0 [facility] Hemoglobin mass conc (Bld) 14.8 g/dL Normal 11.5-15.5 [facility] MCH Entitic mass (RBC) 30.7 pG Normal 26.0-34.0 [facility] MCHC mass conc (RBC) 33.8 g/dL Normal 30.5-36.0 [facility] MCV Entitic volume (RBC) 90.9 fL Normal 80.0-100.0 [facility] Platelet mean volume Entitic volume (Bld) 12.5 fL Normal 9.0-12.7 [facility] Platelets #/vol (Bld) 189 10*3/uL Normal 150-400 [facility] RBC #/vol (Bld) 4.82 10*6/uL Normal 3.90-5.20 [facility] WBC #/vol (Bld) 8.02 10*3/uL Normal 3.70-11.00 [facility] Ferritinon 08-24-2018 Ferritin mass conc 32.1 ng/mL Normal 14.7-205.1 [facility] Comment on above: Performed By: #### F ERR, IRON ####[facility] [place], [place] [phone] Iron and TIBCon 08-24-2018 Iron mass conc 75 ug/dL Normal 41-186 [facility] Comment on above: Performed By: #### F ERR, IRON ####[facility] [place] [phone] TIBC 375 ug/dL Normal 232-386 [facility] Comment on above: Performed By: #### F ERR, IRON ####[place] [phone] Transferrin Saturatn 20 % Normal 15-57 [facility] Comment on above: Performed By: #### F ERR, IRON ####[place] [phone] Remote Abs Gran + CBC (for [facility] use only)on 08-24-2018 Absol Gran Count 5.78 k/uL Normal 1.45-7.50 [facility] Comment on above: Performed By: #### R AGCBC ####[place] [phone] Comment [id number] Normal [facility] Comment on above: Result Comment: Gregoria ferris checked for a clot. Preliminary result. Interpret with caution. Final results may vary. Results requested and read back by: KAYCE/BELEM/144/08/24/18/LATONYA Performed By: #### R AGCBC ####[place] [phone] Erythrocyte distribution width Ratio (RBC) 19.3 % High 11.5-15.0 [facility] Comment on above: Performed By: #### R AGCBC ####[place] [phone] Hematocrit Volume Fraction (Bld) 41.9 % Normal 36.0-46.0 [facility] Comment on above: Performed By: #### R AGCBC ####[place] [phone] Hemoglobin mass conc (Bld) 14.0 g/dL Normal 11.5-15.5 [facility] Comment on above: Performed By: #### R AGCBC ####[address] [place], [place] [phone] MCH Entitic mass (RBC) 28.8 pG Normal 26.0-34.0 [facility] Comment on above: Performed By: #### R AGCBC ####[address] [phone] MCHC mass conc (RBC) 33.4 g/dL Normal 30.5-36.0 [facility] Comment on above: Performed By: #### R AGCBC ####[address] [phone] MCV Entitic volume (RBC) 86.2 fL Normal 80.0-100.0 [facility] Comment on above: Performed By: #### R AGCBC ####[address] [phone] Platelets #/vol (Bld) 148 10*3/uL Low 150-400 [facility] Comment on above: Result Comment: Resu lt rechecked. No clot detected. Performed By: #### R AGCBC ####[address] [phone] RBC #/vol (Bld) 4.86 10*6/uL Normal 3.90-5.20 [facility] Comment on above: Performed By: #### R AGCBC ####[facility] [place] [address] [phone] WBC #/vol (Bld) 7.56 10*3/uL Normal 3.70-11.00 [facility] Comment on above: Performed By: #### R AGCBC ####[address] [phone] CNOVSPon 07-16-2018 CNOVSP Visit (SP) Office ([place]) SARAH BETH GRIFFITHS ([id number]) 1970 F Date Time Provider Department 07/16/18 9:45 AM SYLVIA CHIN During your visit today, we recorded the following information about you: Temperature Pulse Respiration Blood pressure 98 degrees 71/minute 18/minute 139/66 Weight Height 85.3 kg 1.63 m Sylvia Chin MD 07/16/2018 12:23 PM Signed HPI Sarah Beth Griffiths is a 48 year old female who presents in follow up. LOAN CONSULTANT is working her up. She had IV [...] ICD10: D50.9 Lab work Defer management to LOAN CONSULTANT See me in follow up - IRON + TIBC - FERRITIN BLD - ABS GRAN CT + CBC (FOR REMOTE [facility] USE) Sylvia Chin MD Referring Provider: MEMPHIS , PRIETO HIDALGO [[id number]] Allergies As of Date: 07/16/2018 Noted Allergy Reaction CODEINE 06/17/2018 16 - Unknown Date Reviewed: 07/16/2018 Reviewed by: Yadi Cisneros - Fully Assessed Reason for Visit: Anemia [6] Cmt: 4 week follow up Primary Visit Diagnosis:Vaginal bleeding [N93.9] Other Visit Diagnosis:Iron deficiency anemia, unspecified iron deficiency anemia type [D50.9] Order(s):IRON + TIBC [SQIRON] Order #: [id number] STANDING FERRITIN BLD [SQFERR] Order #: [id number] STANDING ABS GRAN CT + CBC (FOR REMOTE [facility] USE) [SQRAGCBC] Order #: [id number] STANDING Disposition: Return in about 6 months [...] by SYLVIA CHIN MD on 07/16/18 Normal [facility] PROGRESSon 07-16-2018 Protein mass conc HNO ID: [id number] Author: Sylvia Chin Service: (none) Author Type: Physician Type: Progress Notes Filed: 07/16/2018 12:23 PM Note Text: MARVEL Griffiths is a 48 year old female who presents in follow up. LOAN CONSULTANT is working her up. She had IV [...] ICD10: D50.9 Lab work Defer management to LOAN CONSULTANT See me in follow up - IRON + TIBC - FERRITIN BLD - ABS GRAN CT + CBC (FOR REMOTE [facility] USE) Sylvia Chin MD Normal [facility] Remote Abs Gran + CBC (for [facility] use only)on 07-16-2018 Absol Gran Count 5.67 k/uL Normal 1.45-7.50 [facility] Hematocrit Volume Fraction (Bld) 37.3 % Normal 36.0-46.0 [facility] Hemoglobin mass conc (Bld) 11.7 g/dL Normal 11.5-15.5 [facility] MCH Entitic mass (RBC) 25.9 pG Low 26.0-34.0 [facility] MCHC mass conc (RBC) 31.4 g/dL Normal 30.5-36.0 [facility] MCV Entitic volume (RBC) 82.5 fL Normal 80.0-100.0 [facility] Platelets #/vol (Bld) 187 10*3/uL Normal 150-400 [facility] Comment on above: Result Comment: Gregoria ferris checked for a clot. RBC #/vol (Bld) 4.52 10*6/uL Normal 3.90-5.20 [facility] WBC #/vol (Bld) 7.55 10*3/uL Normal 3.70-11.00 [facility] Remote Abs Gran + CBC (for [facility] use only)on 06-28-2018 Absol Gran Count 6.82 k/uL Normal 1.45-7.50 [facility] Comment on above: Performed By: #### R AGCBC ####[address] [phone] Comment WBC=8.29/RSP=146 Normal [facility] Comment on above: Result Comment: Samrasta ferris checked for a clot. Preliminary result. Interpret with caution. Final results may vary. Results requested and read back by: AIDAN/BELEM/1156/06/28/18/LATONYA Performed By: #### R AGCBC ####[place] [phone] Erythrocyte distribution width Ratio (RBC) 31.6 % High 11.5-15.0 [facility] Comment on above: Performed By: #### R AGCBC ####[place] [phone] Hematocrit Volume Fraction (Bld) 36.5 % Normal 36.0-46.0 [facility] Comment on above: Performed By: #### R AGCBC ####[place] [phone] Hemoglobin mass conc (Bld) 10.9 g/dL Low 11.5-15.5 [facility] Comment on above: Performed By: #### R AGCBC ####[place] [phone] MCH Entitic mass (RBC) 22.5 pG Low 26.0-34.0 [facility] Comment on above: Performed By: #### R AGCBC ####[address] [phone] MCHC mass conc (RBC) 29.9 g/dL Low 30.5-36.0 [facility] Comment on above: Performed By: #### R AGCBC ####[facility] [place], [place] [phone] MCV Entitic volume (RBC) 75.4 fL Low 80.0-100.0 [facility] Comment on above: Performed By: #### R AGCBC ####[address] [phone] Platelets #/vol (Bld) 218 10*3/uL Normal 150-400 [facility] Comment on above: Result Comment: Resu lt checked and verified No clot detected. Performed By: #### R AGCBC ####[address] [phone] RBC #/vol (Bld) 4.84 10*6/uL Normal 3.90-5.20 [facility] Comment on above: Performed By: #### R AGCBC ####[address] [phone] WBC #/vol (Bld) 8.28 10*3/uL Normal 3.70-11.00 [facility] Comment on above: Result Comment: Resu lt checked and verified No clot detected. Performed By: #### R AGCBC ####[address] [phone] [facility] Visit (SP) Office ([place]) SARAH BETH GRIFFITHS ([id number]) 1970 F Date Time Provider Department 06/23/18 [...] post injectafer and transfusion. She will see LOAN CONSULTANT 07/08/18. I will plan on injectafer next [...] ICD9: 280.9, ICD10: D50.9 (primary diagnosis) injectafer 10/1 and then see me 07/19 for labs and clinical follow up She is set to see LOAN CONSULTANT 07/08/18 My plan will be injectafer therapy for now to replenish iron stores - ABS GRAN CT + CBC (FOR REMOTE [facility] USE) 2. Vaginal bleeding - ICD9: 623.8, ICD10: N93.9 See above - ABS GRAN CT + CBC (FOR REMOTE [facility] USE) Sylvia Chin MD Referring Provider: MEMPHIS , PRIETO HIDALGO [[id number]] Allergies As of Date: 06/23/2018 Noted Allergy Reaction CODEINE 06/17/2018 16 - Unknown Date Reviewed: 06/23/2018 Reviewed by: Gita Escobar - Fully Assessed Reason for Visit: Iron deficiency anemia,unspecified [Other] Cmt: 5 day follow up Primary Visit Diagnosis:Iron deficiency anemia, unspecified iron deficiency anemia type [D50.9] Other Visit Diagnosis:Vaginal bleeding [N93.9] Order(s):ABS GRAN CT + CBC (FOR REMOTE [facility] USE) [SQRAGCBC] Order #: [id number] STANDING Disposition: Return in about 4 weeks [...] by SYLVIA CHIN MD on 06/23/18 Normal [facility] PROGRESSon 06-23-2018 Protein mass conc HNO ID: [id number] Author: Sylvia Chin Service: (none) Author Type: Physician Type: Progress Notes Filed: 06/23/2018 2:58 PM Note Text: MARVEL Griffiths is a 48 year old female who presents in follow up post injectafer and transfusion. She will see LOAN CONSULTANT 07/08/18. I will plan on injectafer next [...] follow up She is set to see LOAN CONSULTANT 07/08/18 My plan will be injectafer therapy for now to replenish iron stores - ABS GRAN CT + CBC (FOR REMOTE [facility] USE) 2. Vaginal bleeding - ICD9: 623.8, ICD10: N93.9 See above - ABS GRAN CT + CBC (FOR REMOTE [facility] USE) Sylvia Chin MD Normal [facility] Remote CBCDIF (for [facility] use only)on 06-21-2018 Abs Baso 0.04 k/uL Normal <0.11 [facility] Comment on above: Performed By: #### R CBCDF #### [facility] [address] [place] [address] Abs [place] 0.52 k/uL Normal <0.87 [facility] Comment on above: Performed By: #### R CBCDF #### [place] [address] [place] [address] Abs Neut 6.98 k/uL Normal 1.45-7.50 [facility] Comment on above: Performed By: #### R CBCDF #### [place] [phone] Basophils/100 WBC (Bld) 0.5 % Normal [facility] Comment on above: Performed By: #### R CBCDF #### [place] [phone] Comment WBC=8.49.AGC=6.98/PL T=255 Normal [facility] Comment on above: Result Comment: Samp le checked for a clot. Preliminary result. Interpret with caution. Final results may vary. Results requested and read back by: AIDAN/BELEM/1152/06/21/18/LATONYA Performed By: #### R CBCDF #### [place] [phone] Eosinophils #/vol (Bld) 0.15 10*3/uL Normal <0.46 [facility] Comment on above: Performed By: #### R CBCDF #### [place] [phone] [place] [address] Eosinophils/100 WBC (Bld) 1.8 % Normal [facility] Comment on above: Performed By: #### R CBCDF #### [place] [phone] [place] [address] Erythrocyte distribution width Ratio (RBC) 25.6 % High 11.5-15.0 [facility] Comment on above: Performed By: #### R CBCDF #### [place] [address] [place] [phone] Hematocrit Volume Fraction (Bld) 29.5 % Low 36.0-46.0 [facility] Comment on above: Performed By: #### R CBCDF #### [place] [address] [place] [phone] Hemoglobin mass conc (Bld) 8.8 g/dL Low 11.5-15.5 [facility] Comment on above: Performed By: #### R CBCDF #### [place] [phone] Lymphocytes #/vol (Bld) 0.80 10*3/uL Low 1.00-4.00 [facility] Comment on above: Performed By: #### R CBCDF #### [place] [phone] Lymphocytes/100 WBC (Bld) 9.4 % Normal [facility] Comment on above: Performed By: #### R CBCDF #### [place] [phone] MCH Entitic mass (RBC) 20.8 pG Low 26.0-34.0 [facility] Comment on above: Performed By: #### R CBCDF #### [place] [phone] MCHC mass conc (RBC) 29.8 g/dL Low 30.5-36.0 [facility] Comment on above: Performed By: #### R CBCDF #### [place] [phone] MCV Entitic volume (RBC) 69.6 fL Low 80.0-100.0 [facility] Comment on above: Performed By: #### R CBCDF #### [place] [address] Monocytes/100 WBC (Bld) 6.1 % Normal [facility] Comment on above: Performed By: #### R CBCDF #### [facility] [address] [place], [place] [address] Neutrophils/100 WBC (Bld) 82.2 % Normal [facility] Comment on above: Performed By: #### R CBCDF #### [place] [phone] [place] [address] Platelets #/vol (Bld) 255 10*3/uL Normal 150-400 [facility] Comment on above: Result Comment: No c lot detected. Performed By: #### R CBCDF #### [place] [address] [place] [address] RBC #/vol (Bld) 4.24 10*6/uL Normal 3.90-5.20 [facility] Comment on above: Performed By: #### R CBCDF #### [place] [phone] [place] [phone] WBC #/vol (Bld) 8.49 10*3/uL Normal 3.70-11.00 [facility] Comment on above: Result Comment: Resu lt rechecked. Performed By: #### R CBCDF #### [place] [phone] [place] [address] [facility] 06-18-2018 [facility] Visit (SP) Office ([place]) SARAH BETH GRIFFITHS ([id number]) 1970 F Date Time Provider Department 06/18/18 [...] SKIN: Negative for lesions, rash, and itching. LOAN CONSULTANT: heavy vaginal bleeding PSYCH: Negative for sleep [...] iron beginning next week 3. Refer to LOAN CONSULTANT for intractable vaginal bleeding. DDX considered. She has had severe vaginal bleeding since March and will need to see immediate LOAN CONSULTANT for workup and diagnosis. - VENTOLIN HFA [...] MD Referring Provider: MACIEL GARZA, PRIETO HIDALGO [[id number]] Allergies As of Date: 06/18/2018 Noted Allergy Reaction CODEINE 06/17/2018 16 - Unknown Date Reviewed: 06/18/2018 Reviewed by: Yadi Cisneros - Fully Assessed Reason for Visit: low hemoglobin [Other] Cmt: new patient consult Primary Visit Diagnosis:Iron deficiency anemia, unspecified iron deficiency anemia type [D50.9] Other Visit Diagnosis:Vaginal bleeding [N93.9] Order(s):TRANSFUSION -BLOOD [5458783] Order #: [id number] CONSULT TO GYNECOLOGY [9013] Order #: [id number]: 1 Disposition: Return in about 5 days [...] by SYLVIA CHIN MD on 06/18/18 Normal [facility] Ferritinon 06-18-2018 Ferritin mass conc 7.5 ng/mL Low 14.7-205.1 [facility] Comment on above: Performed By: #### I YEE, B12, SERFOL, FERR, TSH, MMA #### [facility] [employer] [address] [place] [address] Folate, Serumon 06-18-2018 Folate mass conc 16.8 ng/mL Normal >4.7 [facility] Comment on above: Performed By: #### I YEE, B12, SERFOL, FERR, TSH, MMA #### [facility] [employer] [address] [place] [address] Iron and TIBCon 06-18-2018 Iron mass conc 14 ug/dL Low 41-186 [facility] Comment on above: Performed By: #### I YEE, B12, SERFOL, FERR, TSH, MMA #### [facility] [employer] [address] [place] [phone] TIBC 486 ug/dL High 232-386 [facility] Comment on above: Performed By: #### I YEE, B12, SERFOL, FERR, TSH, MMA #### [facility] [address] [place] [address] Transferrin Saturatn 3 % Low 15-57 [facility] Comment on above: Performed By: #### I YEE, B12, SERFOL, FERR, TSH, MMA #### [facility] [address] [place] [address] Methylmalonic Acidon 018 Methylmalonic Acid 156 nmol/L Normal 79-376 [facility] Comment on above: Result Comment: This test was developed and its performance characteristics determined by [facility]'s [facility] [place] [facility] It has not been cleared or approved by the FDA. [facility] is regulated under CLIA as qualified to perform high-complexity testing. This test is used for clinical purposes. It should not be regarded as investigational or for research. Performed By: #### I YEE, B12, SERFOL, FERR, TSH, MMA #### [facility] [address] [place] [address] PROGRESSon 06-18-2018 Protein mass conc HNO ID: [id number] Author: Sylvia Chin Service: (none) Author Type: [...] SKIN: Negative for lesions, rash, and itching. LOAN CONSULTANT: heavy vaginal bleeding PSYCH: Negative for sleep [...] iron beginning next week 3. Refer to LOAN CONSULTANT for intractable vaginal bleeding. DDX considered. She has had severe vaginal bleeding since March and will need to see immediate LOAN CONSULTANT for workup and diagnosis. - VENTOLIN HFA [...] - CONSULT TO GYNECOLOGY Sylvia Chin MD Normal [facility] Remote CBCDIF (for [facility] use o nly)on 06-18-2018 Abs Baso 0.03 k/uL Normal 0.00-0.10 [facility] Comment on above: Performed By: #### R CBCDF #### [facility] [employer] [address] [place], [place] [address] Abs [place] 0.63 k/uL Normal 0.00-0.86 [facility] Comment on above: Performed By: #### R CBCDF #### [facility] [employer] [address] [place], [place] [address] Abs Neut 6.40 k/uL Normal 1.45-7.50 [facility] Comment on above: Performed By: #### R CBCDF #### [facility] [employer] [address] [place], [place] [address] Basophils/100 WBC (Bld) 0.4 % Normal [facility] Comment on above: Performed By: #### R CBCDF #### [place] [address] [place], [place] [address] Comment FQA=[id number] Normal [facility] Comment on above: Result Comment: Samp josy checked for a clot. Preliminary result. Interpret with caution. Final results may vary. Results requested and read back by: AIDAN/BELEM/945/9/LATONYA Performed By: #### R CBCDF #### [place] [address] [place] [phone] Eosinophils #/vol (Bld) 0.14 10*3/uL Normal 0.00-0.45 [facility] Comment on above: Performed By: #### R CBCDF #### [place] [phone] Eosinophils/100 WBC (Bld) 1.7 % Normal [facility] Comment on above: Performed By: #### R CBCDF #### [place] [address] Erythrocyte distribution width Ratio (RBC) 21.1 % High 11.5-15.0 [facility] Comment on above: Performed By: #### R CBCDF #### [place] [address] Hematocrit Volume Fraction (Bld) 21.8 % Low 36.0-46.0 [facility] Comment on above: Performed By: #### R CBCDF #### [place] [phone] Hemoglobin mass conc (Bld) 6.0 g/dL Low 11.5-15.5 [facility] Comment on above: Performed By: #### R CBCDF #### [place] [phone] Lymphocytes #/vol (Bld) 1.05 10*3/uL Normal 1.00-4.00 [facility] Comment on above: Performed By: #### R CBCDF #### [place] [address] [place], [place] [address] Lymphocytes/100 WBC (Bld) 12.7 % Normal [facility] Comment on above: Performed By: #### R CBCDF #### [place] [address] [place], [place] [address] MCH Entitic mass (RBC) 18.1 pG Low 26.0-34.0 [facility] Comment on above: Performed By: #### R CBCDF #### [place] [address] [place] [address] MCHC mass conc (RBC) 27.5 g/dL Low 30.5-36.0 [facility] Comment on above: Performed By: #### R CBCDF #### [place] [address] MCV Entitic volume (RBC) 65.7 fL Low 80.0-100.0 [facility] Comment on above: Performed By: #### R CBCDF #### [place] [phone] Monocytes/100 WBC (Bld) 7.6 % Normal [facility] Comment on above: Performed By: #### R CBCDF #### [place] [address] [place], [place] [address] Neutrophils/100 WBC (Bld) 77.6 % Normal [facility] Comment on above: Performed By: #### R CBCDF #### [place] [address] [place] [phone] Platelet mean volume Entitic volume (Bld) 11.0 fL Normal 9.0-12.7 [facility] Comment on above: Performed By: #### R CBCDF #### [place] [address] Platelets #/vol (Bld) 286 10*3/uL Normal 150-400 [facility] Comment on above: Result Comment: Resu lt checked and verified No clot detected. Performed By: #### R CBCDF #### [place] [address] RBC #/vol (Bld) 3.32 10*6/uL Low 3.90-5.20 [facility] Comment on above: Performed By: #### R CBCDF #### [place] [address] WBC #/vol (Bld) 8.25 10*3/uL Normal 3.70-11.00 [facility] Comment on above: Performed By: #### R CBCDF #### [place] [address] TSHon 06-18-2018 Thyrotropin Qn 1.360 uU/mL Normal 0.400-5.500 [facility] Comment on above: Result Comment: If t he patient is , TSH reference range varies by gestational period: First Trimester 0.100-2.500 uU/mL Second Trimester 0.200-3.000 uU/mL Third Trimester 0.300-3.000 uU/mL References: 1. Logan L, Tommy M, Jason EK, et al. Management of Thyroid Dysfunction during and : An Endocrine Society Clinical Practice Guideline. J Clin Endocrinol Metab, 2012:97:9953-5670. 2. Chris ACEVEDO. Overview of thyroid disease in . UpToDate. 2016. Accessed on March 14, 2016. Performed By: #### I YEE, B12, SERFOL, FERR, TSH, MMA #### [place] [address] [place] [address] Vitamin B12on 06-18-2018 Cobalamin (Vitamin B12) mass conc 378 pg/mL Normal 232-1245 [facility] Comment on above: Performed By: #### I YEE, B12, SERFOL, FERR, TSH, MMA #### [facility] [address] [place] [address] [place], [place] [address] Encounters Encounter Date Encounter Type Care Provider Facility Start: 05-28-[address] STEPHANIE FLEMING Facility :[facility] Start: 04-02-2022 End: 04-03-[address] STEPHANIE FLEMING Facility:[facility] Start: 03-25-[address] STEPHANIE FLEMING Facility :[facility] Start: 10-17-[address] STEPHANIE FLEMING Facility :[facility] Start: 10-15-2018 End: 10-15-2018 Patient encounter procedure SYLVIA CHIN [facility] Start: 10-13-2018 Patient encounter procedure SYLVIA CHIN [facility] Start: 08-24-2018 End: 08-24-2018 Patient encounter procedure SYLVIA CHIN [facility] Start: 07-16-2018 End: 07-19-2018 Patient encounter procedure SYLVIA CHIN [facility] Start: 06-28-2018 End: 06-28-2018 Patient encounter procedure SYLVIA CHIN [facility] Start: 06-28-2018 End: 06-29-2018 Patient encounter procedure SYLVIA CHIN [facility] Start: 06-23-2018 End: 06-24-2018 Patient encounter procedure SYLVIA CHIN [facility] Start: 06-21-2018 End: 06-22-2018 Patient encounter procedure SYLVIA CHIN [facility] Start: 06-18-2018 End: 06-21-2018 Patient encounter procedure SYLVIA CHIN [facility] Payers Date Payer Category Payer Unknown [id number] [id number] [id number] 1970 Unknown [id number] 1970 Unknown [id number] 1970 Unknown [id number] [id number] 1961 Self-pay [id number] 1961 Unknown [id number] Summary Purpose Family History No Family History Records FoundNo Family History Records FoundNo Family History Records Found Advance Directives No Advanced Directives Records FoundNo Advanced Directives Records FoundNo Advanced Directives Records Found Additional Source Comments INFORMATION SOURCE (unrecogn ized section and content) DATE CREATED AUTHOR 10/24/2018 [facility] DATE CREATED AUTHOR AUTHOR'S ORGANIZ ATION 03/27/2022 [facility] DATE CREATED AUTHOR AUTHOR'S ORGANIZ ATION 05/26/2022 [employer] FOR RECORDS PERTAINING TO PATIENTS WHO ARE [...] BE BASED ON THE PRIMARY CLINICAL RECORDS. [facility] [employer] [facility]. provides no warranty or guarantee of the accuracy or completeness of information in this document.
[2023-11-12] MEDS: LIDOCAINE HCL 10 ML, SODIUM BICARBONATE 1 MEQ INJ (11:47)
--- NOTE | 2023-11-12 12:44 | SUR.PREOP ---
10/14/23 Instructed pt on date, time, prep, and procedure.
== END 2023-11-12 12:00 | disposition home or self-care (01) ==
LOC: US 10:47
PROVIDERS: Radiology Diagnostic Radiology; PCP Family Medicine; Visit Provider Family Medicine
DX: R22.1 Localized swelling, mass and lump, neck (principal)
CPT/HCPCS: 10005; 88173; 88305; 88341; 88342

== ENCOUNTER 2023-11-26 13:07 | Outpatient (OUT) | payer SELFPAY ==
--- OUTSIDE RECORDS SUMMARY | 2023-11-26 13:19 | XMS_ITS | CCD ---
Author Name Unknown Address [address] [place] [address] Organization [facility] Care Team Providers Care Scheduler Name Role Phone GIUSEPPE, SYLVIA Chin Attending Unavailable HOUSE SR, PRIETO [...] Referring Unavailable FANNING, SYLVIA Chin Referring Unavailable DR STEPHANIE HUBBARD Primary Care Unavailable BERNADETTE, DR BROWN Admitting Unavailable BERNADETTE, DR BROWN Attending Unavailable BERNADETTE, DR BROWN Primary Care Unavailable BERNADETTE, DR BROWN Admitting Unavailable BERNADETTE, DR BROWN Attending Unavailable BERNADETTE, DR BROWN Consulting Unavailable BERNADETTE, DR BROWN Primary Care Unavailable BERNADETTE, DR BROWN Admitting Unavailable BERNADETTE, DR BROWN Attending Unavailable DR ENMANUEL DONAHUE Consulting Unavailable BERNADETTE, DR BROWN Attending Unavailable BERNADETTE, DR BROWN Primary Care Unavailable DR STEPHANIE HUBBARD Admitting Unavailable MD Stephanie Hubbard Primary Care Provider MD Enmanuel Donahue Attending Provider [phone] Stephanie Hubbard Primary Care Unavailable Enmanuel Donahue Attending Unavailable Enmanuel Donahue Admitting Unavailable Allergies Allergy Classification Reported Allergen(s) Allergy Type Date of Onset Reaction(s) Facility (4 sources) Codeine; Translations: [CODEINE] Drug Allergy 04-23-20 18 Gastrointestinal Upset [facility] Repository (1 source) bee venom Drug allergy (disorder) [facility] Repository (1 source) Grass pollen Drug allergy (disorder) [facility] Repository (1 source) house dust allergenic extract Drug Allergy [facility] Repository (1 source) Mold Extract Drug Allergy [facility] Repository (1 source) Penicillin Drug Allergy [facility] Repository (1 source) Ragweed Drug allergy (disorder) [facility] Repository (2 sources) Penicillins; Translations: [Penicillins] Allergy to substance 12-21-19 19 [facility] Medications Current Medications Medication Drug Class(es) Dates Sig (Normalized) Sig (Original) acetaminophen 500 mg / caffeine 60 mg / pyrilamine maleate 15 mg oral tablet (1 source) Central Nervous System Stimulant, Methylxanthine Start: 12-20-2018 take 2 tablets by mouth every four to six hours Acetaminophen-Ca ff-Pyrilamine (Midol Max St Menstrual) 500-60-15 mg Tablet Active 2 TAB PO EVERY 4-6 HOURS December 19, 2018 11:00pm albuterol 0.21 mg/ml inhalation solution (2 sources) beta2-Adrenergic Agonist Start: 06-01-2017 Albuterol Sulfate Active 0.63 MG CNTNEBULIZ Q4H May 31, 2017 11:00pm Start: 06-01-2017 take 1 puff(s) by in halation every four to six hours Albuterol Sulfate Active 1 PUFF INHALATION EVERY 4-6 HOURS May 31, 2017 11:00pm Completed/Discontinued Medications Medication Drug Class(es) Dates Sig (Normalized) Sig (Original) acetaminophen 325 mg / HYDROcodone bitartrate 5 mg oral tablet (1 source) Opioid Agonist Start: 06-04-2017 End: 04-23-2018 take 1 tablet by mouth every four hours Hydrocodone-Acetam inophen ([place]) 5-325 mg tablet Discontinued 1 TAB PO Q4H June 04, 2017 April 23, 2018 3:42am acetaminophen 325 mg / oxyCODONE hydrochloride 5 mg oral tablet (1 source) Opioid Agonist Start: 04-23-2018 End: 12-20-2018 take 2 tablets by mouth every four hours Oxycodone-Acetamin ophen (Percocet) 5-325 mg tablet Discontinued 2 TAB PO Q4H April 23, 2018 December 20, 2018 3:00pm ibuprofen 800 mg oral tablet (1 source) Nonsteroidal Anti-inflammatory Drug Start: 06-01-2017 End: 04-23-2018 take 800 mg by mouth three times daily Ibuprofen Discontinued 800 MG PO Three times daily May 31, 2017 11:00pm April 23, 2018 3:42am ondansetron 8 mg disintegrating oral tablet (1 source) Serotonin-3 Receptor Antagonist Start: 04-23-2018 End: 04-28-2018 take 1 tablet by mouth every eight hours Ondansetron (Zofran Odt) 8 mg tablet,disintegrat ing Discontinued 8 MG PO Q8H 10 April 22, 2018 11:00pm April 27, 2018 11:02pm Problems Active Problems Problem Classification Problem Date Documented Da te Episodic/Chronic Other female genital disorders (1 source) Abnormal uterine and vaginal bleeding, unspecified; Translations: [Abnormal uterine and vaginal bleeding, unspecified] Onset: 06-18-2018 Chronic Other injuries and conditions due to external causes (1 source) Contusion; Translations: [Other injury of unspecified body region, initial encounter] 09-09-2023 Episodic Other screening for suspected conditions (not mental disorders or infectious disease) (4 sources) Encounter for screening mammogram for malignant neoplasm of breast; Translations: [ENC SCR MAMMO MALIG NEOPLASM BREAST] Onset: 04-02-2022 Episodic Residual codes; unclassified (1 source) Family history of malignant neoplasm of breast; Translations: [FAMILY HX MALIG NEOPLASM OF BREAST] Onset: 04-07-2022 Episodic Superficial injury; contusion (1 source) Contusion of head; Translations: [Contusion of unspecified part of head, initial encounter] 09-09-2023 Episodic Past or Other Problems Problem Classification Problem Date Documented Da te Episodic/Chronic Deficiency and other anemia (1 source) Iron deficiency anemia, unspecified; Translations: [Iron deficiency anemia, unspecified] Onset: 06-18-2018 Episodic Residual codes; unclassified (1 source) Other general symptoms and signs; Translations: [Other general symptoms and signs] Onset: 06-18-2018 Episodic Results Test Name Value Interpretation Reference Range Facil alisha Arce 11-12-2023 L Specimen: Received: 11/16/23 Status: SANTOS Req Num: [id number] Spec Type: Cytology Subm Dr: Enmanuel Donahue MD Tissues: A FNA SLIDES NOPATH (LT NECK MASS POST) Procedures: HE/2, CDX2, NAPSIN A, TTF1, Cyto Int and Re, MOC31, PAPSTN/7 Age/ Patient Sex Location Account Attending Physician Sarah Beth Griffiths 53/F LABELL [id number] Enmanuel Donahue MD SPEC NUM: [id number] RECD: 11/16/23 STATUS: SANTOS REQ NUM: [id number] JAY: 11/12/23 DR: Enmanuel Donahue MD ENTERED: 11/16/23 [facility] DR: Itzel,Lab SPEC TYPE: Cytology DEPT: STEVEN MEYT ENTERED BY: [id number] RECV BY: [id number] ORDERED: HE/2, CDX2, NAPSIN A, TTF1, Cyto Int and Re, MOC31, PAPSTN/7 ORDERED: HE/2, CDX2, NAPSIN A, TTF1, Cyto Int and Re, MOC31, PAPSTN/7 Pathological Diagnosis Left neck mass, FNA: - The prepared smears and the ThinPrep slide showing only very limited scant material, and not contributory for assessment - The cell block section showing only 2 clusters of glandular structure with stratified lining epithelium to be surrounded by a few lymphocytes - The glandular structures are negative for TTF-1, CDX2, and Napsin A, largely can exclude the possibility of metastatic colon cancer or lung adenocarcinoma (up to 20% of the pulmonary adenocarcinoma can be negative for TTF-1 and Napsin A of note) - The glandular structures are strongly positive for MOC-31 - Immuno controls are appropriate (See note) Note: - The differential diagnosis may include metastatic adenocarcinoma of unknown primary versus sampling of the branchial cleft cyst, requiring continuous clinical and radiological correlations, including additional core biopsy or excisional material for further assessment as appropriate -------- Specimen: [id number] Received: 11/16/23 Status: SANTOS [place] Num: [id number] Spec Type: Cytology Subm Dr: Enmanuel Donahue MD Tissues: A FNA SLIDES NOPATH (LT NECK MASS POST) Procedures: HE/2, CDX2, NAPSIN A, TTF1, Cyto Int and Re, MOC31, PAPSTN/7 -------- Patient: Sarah Beth Griffiths [id number] (Continued) -------- Specimen: [id number] Received: 11/16/23 (Continued) Signed (signature on file) Margarita Montelongo MD 11/17/23 1633 -------- Specimen: [id number] Received: 11/16/23 Status: SANTOS [place] Num: [id number] Spec Type: Cytology Subm Dr: Enmanuel Donahue MD Tissues: A FNA SLIDES NOPATH (LT NECK MASS POST) Procedures: HE/2, CDX2, NAPSIN A, TTF1, Cyto Int and Re, MOC31, PAPSTN/7 -------- Patient: Sarah Beth Griffiths [id number] (Continued) -------- Specimen: [id number] Received: 11/16/23 (Continued) Gross Description Received in Cytolyt labeled with the patient's name, date of and left neck mass per requisition is <1 ml colorless clear fixed fluid. 1 Thin Prep slides are prepared. 1 cell blocks are prepared. 6 smears for pap are additionally received. (CC/sd) CPT Codes 68530, 57493n9, 26715d7, 91150d7 -------- -------- Specimen: [id number] Received: 11/16/23 Status: SANTOS [place] Num: [id number] Spec Type: Cytology Subm Dr: Enmanuel Donahue MD Tissues: A FNA SLIDES NOPATH (LT NECK MASS POST) Procedures: HE/2, CDX2, NAPSIN A, TTF1, Cyto Int and Re, MOC31, PAPSTN/7 -------- Patient: Sarah Beth Griffiths [id number] (Continued) -------- Signed (signature on file) Joseph Montelongo MD 11/17/23 1633 [facility] MG MAMM SCREEN 3D THEODORE CADon 04-02-2022 MG MAMM SCREEN 3D THEODORE CAD Patient: AYESARAH BETH. Exam Date: 04/02/2022 : 1970 Gender:F Ordering : DR STEPAHNIE HUBBARD . Admission #: [id number] Family : Order #: [id number] CLICK HERE TO VIEW EXAM RADIOLOGY REPORT [...] breast cancer at age 68. LOCATION: [facility] BREAST COMPOSITION: Heterogeneously dense,which may obscure [...] M.D. on 04/03/2022 at 14:[address] [facility] Ferritinon 10-15-2018 Ferritin mass conc 46.9 ng/mL Normal 14.7-205.1 [facility] Comment on above: Performed By: #### R CBCDF #### [facility] [address] [place], [place] [address] Iron and TIBCon 10-15-2018 Iron mass conc 69 ug/dL Normal 41-186 [facility] Comment on above: Performed By: #### R CBCDF #### [facility] [address] [place], [place] [address] TIBC 366 ug/dL Normal 232-386 [facility] Comment on above: Performed By: #### R CBCDF #### [facility] [address] [place], [place] [address] Transferrin Saturatn 19 % Normal 15-57 [facility] Comment on above: Performed By: #### R CBCDF #### [facility] [address] [facility] [address] Remote Abs Gran + CBC (for F HC use only)on 10-15-2018 Absol Gran Count 6.30 k/uL Normal 1.45-7.50 [facility] Erythrocyte distribution width Ratio (RBC) 12.3 % Normal 11.5-15.0 [facility] Hematocrit Volume Fraction (Bld) 43.8 % Normal 36.0-46.0 [facility] Hemoglobin mass conc (Bld) 14.8 g/dL Normal 11.5-15.5 [facility] MCH Entitic mass (RBC) 30.7 pG Normal 26.0-34.0 [facility] MCHC mass conc (RBC) 33.8 g/dL Normal 30.5-36.0 [facility] MCV Entitic volume (RBC) 90.9 fL Normal 80.0-100.0 [facility] Platelet mean volume Entitic volume (Bld) 12.5 fL Normal 9.0-12.7 [facility] Platelets #/vol (Bld) 189 10*3/uL Normal 150-400 [facility] RBC #/vol (Bld) 4.82 10*6/uL Normal 3.90-5.[address] [facility] WBC #/vol (Bld) 8.02 10*3/uL Normal 3.70-11.[address] [facility] Ferritinon 08-24-2018 Ferritin mass conc 32.1 ng/mL Normal 14.7-205.1 [facility] Comment on above: Performed By: #### F ERR, IRON ####[facility] [address] [place], [place] [phone] Iron and TIBCon 08-24-2018 Iron mass conc 75 ug/dL Normal 41-186 [facility] Comment on above: Performed By: #### F ERR, IRON ####[facility] [address] [place], [place] [phone] TIBC 375 ug/dL Normal 232-386 [facility] Comment on above: Performed By: #### F ERR, IRON ####[place] [phone] Transferrin Saturatn 20 % Normal 15-57 [facility] Comment on above: Performed By: #### F ERR, IRON ####[place] [phone] Remote Abs Gran + CBC (for [facility] use only)on 08-24-2018 Absol Gran Count 5.78 k/uL Normal 1.45-7.50 [facility] Comment on above: Performed By: #### R AGCBC ####[place] [phone] Comment DFC=561 Normal [facility] Comment on above: Result Comment: Gregoria ferris checked for a clot. Preliminary result. Interpret with caution. Final results may vary. Results requested and read back by: KAYCE/BELEM/Reinaldo/08/24/18/LATONYA Performed By: #### R AGCBC ####[place] [phone] Erythrocyte distribution width Ratio (RBC) 19.3 % High 11.5-15.0 [facility] Comment on above: Performed By: #### R AGCBC ####[address] [phone] Hematocrit Volume Fraction (Bld) 41.9 % Normal 36.0-46.0 [facility] Comment on above: Performed By: #### R AGCBC ####[place] [phone] Hemoglobin mass conc (Bld) 14.0 g/dL Normal 11.5-15.5 [facility] Comment on above: Performed By: #### R AGCBC ####[address] [phone] MCH Entitic mass (RBC) 28.8 pG Normal 26.0-34.0 [facility] Comment on above: Performed By: #### R AGCBC ####[place] [id number] [place] [phone] MCHC mass conc (RBC) 33.4 g/dL Normal 30.5-36.0 [facility] Comment on above: Performed By: #### R AGCBC ####[facility] [place], [place] [phone] MCV Entitic volume (RBC) 86.2 fL Normal 80.0-100.0 [facility] Comment on above: Performed By: #### R AGCBC ####[place] [phone] Platelets #/vol (Bld) 148 10*3/uL Low 150-400 [facility] Comment on above: Result Comment: Resu lt rechecked. No clot detected. Performed By: #### R AGCBC ####[place] [phone] RBC #/vol (Bld) 4.86 10*6/uL Normal 3.90-5.[address] [facility] Comment on above: Performed By: #### R AGCBC ####[place] [phone] WBC #/vol (Bld) 7.56 10*3/uL Normal 3.70-11.[address] [facility] Comment on above: Performed By: #### R AGCBC ####[place] [phone] CNOVSPon 07-16-2018 CNOVSP Visit (SP) Office ([facility]) SARAH BETH GRIFFITHS ([id number]) 1970 F Date Time Provider Department 07/16/18 9:45 AM SYLVIA CHIN During your visit today, we recorded the following information about you: Temperature Pulse Respiration Blood pressure 98 degrees 71/minute 18/minute 139/66 Weight Height 85.3 kg 1.63 m Sylvia Chin MD 07/16/2018 12:23 PM Signed HPI Sarah Beth Griffiths is a 48 year old female who presents in follow up. [facility] is working her up. She had IV [...] mg /3 mL (0.083 %) nebulizer solution loratadine/pseudoephe drine (CLARITIN-D 24 HOUR ORAL) Take by mouth. pseudoephedrine HCl (SUDAFED ORAL) Take by mouth. No current facility-administered medications for this visit. ALLERGIES Allergen Reactions [...] disturbance, mood disorder and recent psychosocial stressors. HEMATOLOGY/LYMPHOLOGY : Negative for prolonged bleeding, bruising easily or [...] ICD10: D50.9 Lab work Defer management to [facility] [facility] See me in follow up - IRON + TIBC - FERRITIN BLD - ABS GRAN CT + CBC (FOR REMOTE [facility] USE) Sylvia Chin MD Referring Provider: MACIEL GARZA, PRIETO HIDALGO [[id number]] Allergies As of Date: 07/16/2018 Noted Allergy Reaction CODEINE 06/17/2018 16 - Unknown Date Reviewed: 07/16/2018 Reviewed by: Yadi Cisneros - Fully Assessed Reason for Visit: Anemia [6] Cmt: 4 week follow up Primary Visit Diagnosis:Vaginal bleeding [N93.9] Other Visit Diagnosis:Iron deficiency anemia, unspecified iron deficiency anemia type [D50.9] Order(s):IRON + TIBC [SQIRON] Order #: [id number] STANDING FERRITIN BLD [SQFERR] Order #: [id number] STANDING ABS GRAN CT + CBC (FOR REMOTE [facility] USE) [SQRAGCBC] Order #: [id number] STANDING Disposition: Return in about 6 months [...] by SYLVIA CHIN MD on 07/16/18 Normal [facility] PROGRESSon 07-16-2018 Protein mass conc HNO ID: [id number] Author: Sylvia Chin Service: (none) Author Type: Physician Type: Progress Notes Filed: 07/16/2018 12:23 PM Note Text: MARVEL Griffiths is a 48 year old female who presents in follow up. [facility] is working her up. She had IV [...] mg /3 mL (0.083 %) nebulizer solution loratadine/pseudoephe drine (CLARITIN-D 24 HOUR ORAL) Take by mouth. pseudoephedrine HCl (SUDAFED ORAL) Take by mouth. No current facility-administered medications for this visit. ALLERGIES Allergen Reactions [...] disturbance, mood disorder and recent psychosocial stressors. HEMATOLOGY/LYMPHOLOGY : Negative for prolonged bleeding, bruising easily or [...] ICD10: D50.9 Lab work Defer management to [facility] See me in follow up - IRON + TIBC - FERRITIN BLD - ABS GRAN CT + CBC (FOR REMOTE [facility] USE) Sylvia Chin MD Normal [facility] Remote Abs Gran + CBC (for [facility] use only)on 07-16-2018 Absol Gran Count 5.67 k/uL Normal 1.45-7.50 [facility] Hematocrit Volume Fraction (Bld) 37.3 % Normal 36.0-46.0 [facility] Hemoglobin mass conc (Bld) 11.7 g/dL Normal 11.5-15.5 [facility] MCH Entitic mass (RBC) 25.9 pG Low 26.0-34.0 [facility] MCHC mass conc (RBC) 31.4 g/dL Normal 30.5-36.0 [facility] MCV Entitic volume (RBC) 82.5 fL Normal 80.0-100.0 [facility] Platelets #/vol (Bld) 187 10*3/uL Normal 150-400 [facility] Comment on above: Result Comment: [facility] RBC #/vol (Bld) 4.52 10*6/uL Normal 3.90-5.[address] [facility] WBC #/vol (Bld) 7.55 10*3/uL Normal 3.70-11.[address] [facility] Remote Abs Gran + CBC (for [facility] use only)on 06-28-2018 Absol Gran Count 6.82 k/uL Normal 1.45-7.50 [facility] Comment on above: Performed By: #### R AGCBC ####[facility] [address] [place], [place] [phone] Comment WBC=8.29/PUI=472 Normal [facility] Comment on above: Result Comment: Gregoria ferris checked for a clot. Preliminary result. Interpret with caution. Final results may vary. Results requested and read back by: AIDAN/BELEM/115606/28/18/LATONYA Performed By: #### R AGCBC ####[place] [phone] Erythrocyte distribution width Ratio (RBC) 31.6 % High 11.5-15.0 [facility] Comment on above: Performed By: #### R AGCBC ####[place] [phone] Hematocrit Volume Fraction (Bld) 36.5 % Normal 36.0-46.0 [facility] Comment on above: Performed By: #### R AGCBC ####[place] [phone] Hemoglobin mass conc (Bld) 10.9 g/dL Low 11.5-15.5 [facility] Comment on above: Performed By: #### R AGCBC ####[place] [phone] MCH Entitic mass (RBC) 22.5 pG Low 26.0-34.0 [facility] Comment on above: Performed By: #### R AGCBC ####[place] [phone] MCHC mass conc (RBC) 29.9 g/dL Low 30.5-36.0 [facility] Comment on above: Performed By: #### R AGCBC ####[place] [phone] MCV Entitic volume (RBC) 75.4 fL Low 80.0-100.0 [facility] Comment on above: Performed By: #### R AGCBC ####[place] [address] [place], [place] [phone] Platelets #/vol (Bld) 218 10*3/uL Normal 150-400 [facility] Comment on above: Result Comment: Resu lt checked and verified No clot detected. Performed By: #### R AGCBC ####[address] [phone] RBC #/vol (Bld) 4.84 10*6/uL Normal 3.90-5.[address] [facility] Comment on above: Performed By: #### R AGCBC ####[address] [phone] WBC #/vol (Bld) 8.28 10*3/uL Normal 3.70-11.[address] [facility] Comment on above: Result Comment: Resu lt checked and verified No clot detected. Performed By: #### R AGCBC ####[address] [phone] CNOVSPon 06-23-2018 CNOVS Visit (SP) Office ([facility]) SARAH BETH GRIFFITHS ([id number]) 1970 F Date Time Provider Department 06/23/18 [...] post injectafer and transfusion. She will see [facility] 07/08/18. I will plan on injectafer next [...] mg /3 mL (0.083 %) nebulizer solution loratadine/pseudoephe drine (CLARITIN-D 24 HOUR ORAL) Take by mouth. pseudoephedrine HCl (SUDAFED ORAL) Take by mouth. No current facility-administered medications for this visit. ALLERGIES Allergen Reactions [...] disturbance, mood disorder and recent psychosocial stressors. HEMATOLOGY/LYMPHOLOGY : Negative for prolonged bleeding, bruising easily or [...] follow up She is set to see [facility] 07/08/18 My plan will be injectafer therapy for now to replenish iron stores - ABS GRAN CT + CBC (FOR REMOTE [facility] USE) 2. Vaginal bleeding - ICD9: 623.8, ICD10: N93.9 See above - ABS GRAN CT + CBC (FOR REMOTE [facility] USE) Sylvia Chin MD Referring Provider: [facility], PRIETO HIDALGO [[id number]] Allergies As of Date: 06/23/2018 Noted Allergy Reaction CODEINE 06/17/2018 16 - Unknown Date Reviewed: 06/23/2018 Reviewed by: Gita Escobar - Fully Assessed Reason for Visit: Iron deficiency anemia,unspecified [Other] Cmt: 5 day follow up Primary Visit Diagnosis:Iron deficiency anemia, unspecified iron deficiency anemia type [D50.9] Other Visit Diagnosis:Vaginal bleeding [N93.9] Order(s):ABS GRAN CT + CBC (FOR REMOTE [facility] USE) [SQRAGCBC] Order #: [id number] STANDING Disposition: Return in about 4 weeks [...] by SYLVIA CHIN MD on 06/23/18 Normal [facility] PROGRESSon 06-23-2018 Protein mass conc HNO ID: [id number] Author: Sylvia Chin Service: (none) Author Type: Physician Type: Progress Notes Filed: 06/23/2018 2:58 PM Note Text: MARVEL Sarah Beth Griffiths is a 48 year old female who presents in follow up post injectafer and transfusion. She will see [facility] 07/08/18. I will plan on injectafer next [...] mg /3 mL (0.083 %) nebulizer solution loratadine/pseudoephe drine (CLARITIN-D 24 HOUR ORAL) Take by mouth. pseudoephedrine HCl (SUDAFED ORAL) Take by mouth. No current facility-administered medications for this visit. ALLERGIES Allergen Reactions [...] disturbance, mood disorder and recent psychosocial stressors. HEMATOLOGY/LYMPHOLOGY : Negative for prolonged bleeding, bruising easily or [...] follow up She is set to see [facility] [employer] 07/08/18 My plan will be injectafer therapy for now to replenish iron stores - ABS GRAN CT + CBC (FOR REMOTE [facility] USE) 2. Vaginal bleeding - ICD9: 623.8, ICD10: N93.9 See above - ABS GRAN CT + CBC (FOR REMOTE [facility] USE) Sylvia Chin MD Normal [facility] Remote CBCDIF (for [facility] use o nly)on 06-21-2018 Abs Baso 0.04 k/uL Normal <0.11 [facility] Comment on above: Performed By: #### R CBCDF #### [facility] [address] [place] [address] Abs Alfalfa 0.52 k/uL Normal <0.87 [facility] Comment on above: Performed By: #### R CBCDF #### [facility] [address] [place], [place] [address] Abs Neut 6.98 k/uL Normal 1.45-7.50 [facility] Comment on above: Performed By: #### R CBCDF #### [place] [address] [place], [place] [address] Basophils/100 WBC (Bld) 0.5 % Normal [facility] Comment on above: Performed By: #### R CBCDF #### [address] [address] Comment WBC=8.49.AGC=6.98/PL T =255 Normal [facility] Comment on above: Result Comment: Samp le checked for a clot. Preliminary result. Interpret with caution. Final results may vary. Results requested and read back by: AIDAN/BELEM/1152/9/LATONYA Performed By: #### R CBCDF #### [address] [address] Eosinophils #/vol (Bld) 0.15 10*3/uL Normal <0.46 [facility] Comment on above: Performed By: #### R CBCDF #### [place] [address] [place], [place] [address] Eosinophils/100 WBC (Bld) 1.8 % Normal [facility] Comment on above: Performed By: #### R CBCDF #### [facility] [place], [place] [address] Erythrocyte distribution width Ratio (RBC) 25.6 % High 11.5-15.0 [facility] Comment on above: Performed By: #### R CBCDF #### [place] [address] [place], [place] [address] Hematocrit Volume Fraction (Bld) 29.5 % Low 36.0-46.0 [facility] Comment on above: Performed By: #### R CBCDF #### [facility] [address] [place], [place] [address] Hemoglobin mass conc (Bld) 8.8 g/dL Low 11.5-15.5 [facility] Comment on above: Performed By: #### R CBCDF #### [place] [address] [place], [place] [address] Lymphocytes #/vol (Bld) 0.80 10*3/uL Low 1.00-4.00 [facility] Comment on above: Performed By: #### R CBCDF #### [place] [id number] [place] [address] Lymphocytes/100 WBC (Bld) 9.4 % Normal [facility] Comment on above: Performed By: #### R CBCDF #### [place] [address] MCH Entitic mass (RBC) 20.8 pG Low 26.0-34.0 [facility] Comment on above: Performed By: #### R CBCDF #### [place] [address] MCHC mass conc (RBC) 29.8 g/dL Low 30.5-36.0 [facility] Comment on above: Performed By: #### R CBCDF #### [place] [id number] [place] [address] MCV Entitic volume (RBC) 69.6 fL Low 80.0-100.0 [facility] Comment on above: Performed By: #### R CBCDF #### [place] [id number] [place] [address] Monocytes/100 WBC (Bld) 6.1 % Normal [facility] Comment on above: Performed By: #### R CBCDF #### [place] [id number] [place] [address] Neutrophils/100 WBC (Bld) 82.2 % Normal [facility] Comment on above: Performed By: #### R CBCDF #### [facility] [address] [place] [address] Platelets #/vol (Bld) 255 10*3/uL Normal 150-400 [facility] Comment on above: Result Comment: No c lot detected. Performed By: #### R CBCDF #### [place] [id number] [place] [address] RBC #/vol (Bld) 4.24 10*6/uL Normal 3.90-5.[address] [facility] Comment on above: Performed By: #### R CBCDF #### [place] [id number] [place] [address] WBC #/vol (Bld) 8.49 10*3/uL Normal 3.70-11.[address] [facility] Comment on above: Result Comment: Resu lt rechecked. Performed By: #### R CBCDF #### [place] [address] CNOVSPon 06-18-2018 [facility] Visit (SP) Office ([place]) SARAH BETH GRIFFITHS ([id number]) 1970 F Date Time Provider Department 06/18/18 [...] mg /3 mL (0.083 %) nebulizer solution loratadine/pseudoephe drine (CLARITIN-D 24 HOUR ORAL) Take by mouth. pseudoephedrine HCl (SUDAFED ORAL) Take by mouth. No current facility-administered medications for this visit. ALLERGIES Allergen Reactions [...] SKIN: Negative for lesions, rash, and itching. 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 HEMATOLOGY/LYMPHOLOGY : Negative for prolonged bleeding, bruising easily or [...] iron beginning next week 3. Refer to [employer] W[employer] for intractable vaginal bleeding. DDX considered. She has had severe vaginal bleeding since March and will need to see immediate [employer]ER for workup and diagnosis. - VENTOLIN HFA [...] TO GYNECOLOGY Sylvia Chin MD Referring Provider: PRIETO ST SR [[id number]] Allergies As of Date: 06/18/2018 Noted Allergy Reaction CODEINE 06/17/2018 16 - Unknown Date Reviewed: 06/18/2018 Reviewed by: Yadi Cisneros - Fully Assessed Reason for Visit: low hemoglobin [Other] Cmt: new patient consult Primary Visit Diagnosis:Iron deficiency anemia, unspecified iron deficiency anemia type [D50.9] Other Visit Diagnosis:Vaginal bleeding [N93.9] Order(s):TRANSFUSION- BLOOD [1483136] Order #: [id number] CONSULT TO GYNECOLOGY [9013] Order #: [id number]: 1 Disposition: Return in about 5 days [...] by SYLVIA CHIN MD on 06/18/18 Normal [facility] Ferritinon 06-18-2018 Ferritin mass conc 7.5 ng/mL Low 14.7-205.1 [facility] Comment on above: Performed By: #### I YEE, B12, SERFOL, FERR, TSH, MMA #### [place] [address] Folate, Serumon 06-18-2018 Folate mass conc 16.8 ng/mL Normal >4.7 [facility] Comment on above: Performed By: #### I YEE, B12, SERFOL, FERR, TSH, MMA #### [place] [address] Iron and TIBCon 06-18-2018 Iron mass conc 14 ug/dL Low 41-186 [facility] Comment on above: Performed By: #### I YEE, B12, SERFOL, FERR, TSH, MMA #### [place] [id number] [place] [address] TIBC 486 ug/dL High 232-386 [facility] Comment on above: Performed By: #### I YEE, B12, SERFOL, FERR, TSH, MMA #### [place] [address] [place] [address] Transferrin Saturatn 3 % Low 15-57 [facility] Comment on above: Performed By: #### I YEE, B12, SERFOL, FERR, TSH, MMA #### [facility] [address] [place], [place] [address] Methylmalonic Acidon 018 Methylmalonic Acid 156 nmol/L Normal 79-376 [facility] Comment on above: Result Comment: This test was developed and its performance characteristics determined by [facility]'s Vikash Annmarie [facility] [facility]). It has not been cleared or approved by the FDA. [facility] is regulated under CLIA as qualified to perform high-complexity testing. This test is used for clinical purposes. It should not be regarded as investigational or for research. Performed By: #### I YEE, B12, SERFOL, FERR, TSH, MMA #### [facility] [address] [place], [place] [address] PROGRESSon 06-18-2018 Protein mass conc HNO ID: [id number] Author: Sylvia Chin Service: (none) Author Type: [...] mg /3 mL (0.083 %) nebulizer solution loratadine/pseudoephe drine (CLARITIN-D 24 HOUR ORAL) Take by mouth. pseudoephedrine HCl (SUDAFED ORAL) Take by mouth. No current facility-administered medications for this visit. ALLERGIES Allergen Reactions [...] SKIN: Negative for lesions, rash, and itching. 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 HEMATOLOGY/LYMPHOLOGY : Negative for prolonged bleeding, bruising easily or [...] iron beginning next week 3. Refer to [employer]ER for intractable vaginal bleeding. DDX considered. She has had severe vaginal bleeding since March and will need to see immediate [employer]ER for workup and diagnosis. - VENTOLIN HFA [...] CONSULT TO GYNECOLOGY Sylvia Chin MD Normal [facility] Remote CBCDIF (for [facility] use o nly)on 06-18-2018 Abs Baso 0.03 k/uL Normal 0.00-0.10 [facility] Comment on above: Performed By: #### R CBCDF #### [place] [address] Abs Alfalfa 0.63 k/uL Normal 0.00-0.86 [facility] Comment on above: Performed By: #### R CBCDF #### [place] [id number] Abs Neut 6.40 k/uL Normal 1.45-7.50 [facility] Comment on above: Performed By: #### R CBCDF #### [place] [address] [place] [id number] Basophils/100 WBC (Bld) 0.4 % Normal [facility] Comment on above: Performed By: #### R CBCDF #### [place] [id number] Comment JYR=[id number] Normal [facility] Comment on above: Result Comment: Samp le checked for a clot. Preliminary result. Interpret with caution. Final results may vary. Results requested and read back by: AIDAN/BELEM/[id number]/18/18/LATONYA Performed By: #### R CBCDF #### [facility] [address] [place] [phone] Eosinophils #/vol (Bld) 0.14 10*3/uL Normal 0.00-0.45 [facility] Comment on above: Performed By: #### R CBCDF #### [facility] [place] [phone] Eosinophils/100 WBC (Bld) 1.7 % Normal [facility] Comment on above: Performed By: #### R CBCDF #### [facility] [address] [place] [phone] Erythrocyte distribution width Ratio (RBC) 21.1 % High 11.5-15.0 [facility] Comment on above: Performed By: #### R CBCDF #### [facility] [address] [place] [phone] Hematocrit Volume Fraction (Bld) 21.8 % Low 36.0-46.0 [facility] Comment on above: Performed By: #### R CBCDF #### [facility] [address] [place] [phone] Hemoglobin mass conc (Bld) 6.0 g/dL Low 11.5-15.5 [facility] Comment on above: Performed By: #### R CBCDF #### [facility] [address] [place] [phone] Lymphocytes #/vol (Bld) 1.05 10*3/uL Normal 1.00-4.00 [facility] Comment on above: Performed By: #### R CBCDF #### [facility] [place] [phone] Lymphocytes/100 WBC (Bld) 12.7 % Normal [facility] Comment on above: Performed By: #### R CBCDF #### [facility] [place] [phone] MCH Entitic mass (RBC) 18.1 pG Low 26.0-34.0 [facility] Comment on above: Performed By: #### R CBCDF #### [place] [address] [place], [place] [address] MCHC mass conc (RBC) 27.5 g/dL Low 30.5-36.0 [facility] Comment on above: Performed By: #### R CBCDF #### [place] [phone] [place] [address] MCV Entitic volume (RBC) 65.7 fL Low 80.0-100.0 [facility] Comment on above: Performed By: #### R CBCDF #### [address] [address] Monocytes/100 WBC (Bld) 7.6 % Normal [facility] Comment on above: Performed By: #### R CBCDF #### [place] [address] Neutrophils/100 WBC (Bld) 77.6 % Normal [facility] Comment on above: Performed By: #### R CBCDF #### [place] [phone] Platelet mean volume Entitic volume (Bld) 11.0 fL Normal 9.0-12.7 [facility] Comment on above: Performed By: #### R CBCDF #### [place] [phone] Platelets #/vol (Bld) 286 10*3/uL Normal 150-400 [facility] Comment on above: Result Comment: Resu lt checked and verified No clot detected. Performed By: #### R CBCDF #### [address] [address] RBC #/vol (Bld) 3.32 10*6/uL Low 3.90-5.[address] [facility] Comment on above: Performed By: #### R CBCDF #### [place] [address] [place] [address] WBC #/vol (Bld) 8.25 10*3/uL Normal 3.70-11.[address] [facility] Comment on above: Performed By: #### R CBCDF #### [place] [id number] [place] [address] TSHon 06-18-2018 Thyrotropin Qn 1.360 uU/mL Normal 0.400-5.500 [facility] Comment on above: Result Comment: If t he patient is , TSH reference range varies by gestational period: First Trimester 0.100-2.500 uU/mL Second Trimester 0.200-3.000 uU/mL Third Trimester 0.300-3.000 uU/mL References: 1. Logan L, Tommy M, Jason EK, et al. Management of Thyroid Dysfunction during and : An Endocrine Society Clinical Practice Guideline. J Clin Endocrinol Metab, 2012:97:8798-0325. 2. hCris ACEVEDO. Overview of thyroid disease in . UpToDate. 2016. Accessed on March 14, 2016. Performed By: #### I YEE, B12, SERFOL, FERR, TSH, MMA #### [facility] [address] [place] [address] Vitamin B12on 06-18-2018 Cobalamin (Vitamin B12) mass conc 378 pg/mL Normal 232-1245 [facility] Comment on above: Performed By: #### I YEE, B12, SERFOL, FERR, TSH, MMA #### [facility] [address] [place] [phone] Encounters Encounter Date Encounter Type Care Provider Facility Start: 11-12-2023 End: 11-12-2023 ambulatory Stephanie Hubbard Facility:[facility] Start: 11-12-2023 End: 11-12-2023 ambulatory MD Stephanie Hubbard Work Phone: [facility] Work Phone: Start: 11-12-2023 End: 11-12-2023 Departed Referred MD Stephanie Hubbard Work Phone: [facility] Start: 05-28-[address] STEPHANIE HUBBARD Facility :[facility] Start: 04-02-2022 End: 04-03-[address] STEPHANIE HUBBARD Facility:[facility] Start: 03-25-[address] STEPHANIE HUBBARD Facility :[facility] Start: 10-17-[address] STEPHANIE HUBBARD Facility :[facility] Start: 10-15-2018 End: 10-15-2018 Patient encounter procedure SYLVIA Chin ADELINATIN [facility] Start: 10-13-2018 Patient encounter procedure SYLVIA Chin ADELINATIN [facility] Start: 08-24-2018 End: 08-24-2018 Patient encounter procedure SYLVIA Chin GIUSEPPE [facility] Start: 07-16-2018 End: 07-19-2018 Patient encounter procedure SYLVIA Chin GIUSEPPE [facility] Start: 06-28-2018 End: 06-28-2018 Patient encounter procedure SYLVIA CHIN [facility] Start: 06-28-2018 End: 06-29-2018 Patient encounter procedure SYLVIA CHIN [facility] Start: 06-23-2018 End: 06-24-2018 Patient encounter procedure SYLVIA CHIN [facility] Start: 06-21-2018 End: 06-22-2018 Patient encounter procedure SYLVIA CHIN [facility] Start: 06-18-2018 End: 06-21-2018 Patient encounter procedure SYLVIA Chin GIUSEPPE [facility] Payers Date Payer Category Payer Self-pay [id number] 1970 Unknown [id number] 2.16.84 [id number] 1970 Unknown [id number] 1970 Unknown [id number] 2.16.84 [id number] 1970 Unknown [id number] 2.16.84 [id number] 1961 Self-pay [id number] 1961 Unknown [id number] Unknown [employer] BC/BS [id number] Unknown [id number] [id number] Social History Date Type Detail Facility Start: 04-23-2018 Tobacco smoking stat us WAIS Smoker (finding) [facility] Start: 1970 Sex Assigned At Female F [facility] Evaluation note Note Date & Type Note Facility Evaluation note No assessment information availa ble [facility] Work Phone: Summary Purpose Family History No Family History Records FoundNo Family History Records FoundNo Family History Records Found Advance Directives No Advanced Directives Records Found Advance Directive Response Recorded Date/ Time Advance Directives No May 7:47pm Additional Source Comments INFORMATION SOURCE (unrecogn ized section and content) DATE CREATED AUTHOR 10/24/2018 [facility] DATE CREATED AUTHOR AUTHOR'S ORGANIZ ATION 05/26/2022 [facility] [place] [facility] DATE CREATED AUTHOR AUTHOR'S ORGANIZ ATION 11/24/2023 [facility] Care Teams (unrecognized sec tion and content) Team Status: Active Member Role Status Dates Stephanie Hubbard MD Primary Care Provider Active Team Status: Inactive Member Role Status Dates Stephanie Hubbard MD Primary Care Provider Active Start: November 12, 2023 End: November 12, 2023 Enmanuel Donahue MD Attending Provider Active Start: November 12, 2023 End: November 12, 2023 Goals (unrecognized section and content) Goals may be documented in a n alternate section FOR RECORDS PERTAINING TO PATIENTS WHO ARE [...] BE BASED ON THE PRIMARY CLINICAL RECORDS. [facility]. provides no warranty or guarantee of the accuracy or completeness of information in this document.
--- NOTE | 2023-11-26 13:26 | CT_ITS ---
[address] [address] Patient Name: MAKAYLA GRIFFITHS MRN: [id number] date: 1970 Sex: F Assigned Patient Location: LAB Current Patient Location: LAB Accession/Order Number: [id number] Exam Date: 11/26/2023 15:40 Report Date: 11/26/2023 16:11 At the request of: STEPHANIE FLEMING Procedure: CT abdomen pelvis w con CT abdomen pelvis w con, CT chest wo con, 11/26/2023 3:40 PM EST INDICATION: Malignant Neoplasm Unspecified C80.1, Neck Mass R22.1 COMPARISON: This study was compared to the prior ultrasound of the neck dated 11/12/2023 TECHNIQUE: Axial low-dose images of 2 millimeters are obtained from the thoracic outlet to symphysis pubis without contrast for chest and with contrast for the abdomen and pelvis. Dose reduction techniques were achieved by using automated exposure control and/or adjustment of mA and/or kV according to patient size and/or use of iterative reconstruction technique. FINDINGS: 1.5 cm lesion in the left thyroid lobe is noted. There is no suspicious lung lesion. The central tracheobronchial tree is unremarkable. No mediastinal lymph node enlargement by size criteria is noted. No pleural or pericardial effusion is noted. Liver and gallbladder: No abnormality of the liver and gallbladder is noted. No enlargement of the intrahepatic or extrahepatic biliary ducts. Genitourinary system: No hydronephrosis. No nephrolithiasis. No abnormality of the urinary bladder is noted. Other solid abdominal organs: adrenal glands, pancreas, and spleen are unremarkable. Aorta: The infrarenal abdominal aorta is nonaneurysmal. Free fluid: There is no free fluid in the abdomen pelvis. Lymph node: No lymph node enlargement by size criteria is noted. Bowel: No abnormality of small or large bowel is noted. Bone: There is no suspicious osteolytic or osteoblastic lesion. No acute fracture or dislocation is noted. Mild degenerative changes of the lower lumbar spine and SI joints are noted. Grade 1 anterolisthesis of L4 on L5. Bone island in the right femoral head is noted. Others: Umbilical hernia containing fat. CT/CT abdomen pelvis w con IMPRESSION: Left thyroid lesion. An ultrasound is recommended for further evaluation. No other significant abnormality in the current study. Electronically authenticated by: NIYA KENNY Date: 11/26/2023 16:11
--- NOTE | 2023-11-26 13:26 | CT_ITS ---
The [address] [address] Patient Name: MAKAYLA GRIFFITHS MRN: [id number] date: 1970 Sex: F Assigned Patient Location: LAB Current Patient Location: LAB Accession/Order Number: [id number] Exam Date: 11/26/2023 15:40 Report Date: 11/26/2023 16:11 At the request of: STEPHANIE FLEMING Procedure: CT chest wo con CT abdomen pelvis w con, CT chest wo con, 11/26/2023 3:40 PM EST INDICATION: Malignant Neoplasm Unspecified C80.1, Neck Mass R22.1 COMPARISON: This study was compared to the prior ultrasound of the neck dated 11/12/2023 TECHNIQUE: Axial low-dose images of 2 millimeters are obtained from the thoracic outlet to symphysis pubis without contrast for chest and with contrast for the abdomen and pelvis. Dose reduction techniques were achieved by using automated exposure control and/or adjustment of mA and/or kV according to patient size and/or use of iterative reconstruction technique. FINDINGS: 1.5 cm lesion in the left thyroid lobe is noted. There is no suspicious lung lesion. The central tracheobronchial tree is unremarkable. No mediastinal lymph node enlargement by size criteria is noted. No pleural or pericardial effusion is noted. Liver and gallbladder: No abnormality of the liver and gallbladder is noted. No enlargement of the intrahepatic or extrahepatic biliary ducts. Genitourinary system: No hydronephrosis. No nephrolithiasis. No abnormality of the urinary bladder is noted. Other solid abdominal organs: adrenal glands, pancreas, and spleen are unremarkable. Aorta: The infrarenal abdominal aorta is nonaneurysmal. Free fluid: There is no free fluid in the abdomen pelvis. Lymph node: No lymph node enlargement by size criteria is noted. Bowel: No abnormality of small or large bowel is noted. Bone: There is no suspicious osteolytic or osteoblastic lesion. No acute fracture or dislocation is noted. Mild degenerative changes of the lower lumbar spine and SI joints are noted. Grade 1 anterolisthesis of L4 on L5. Bone island in the right femoral head is noted. Others: Umbilical hernia containing fat. CT/CT chest wo con IMPRESSION: Left thyroid lesion. An ultrasound is recommended for further evaluation. No other significant abnormality in the current study. Electronically authenticated by: NIYA KENNY Date: 11/26/2023 16:11
[2023-11-26 13:32] LABS: Estimated GFR (African America >60 (>=60); Estimated GFR (Non-African Ame >60 (>=60)
== END 2023-11-26 13:08 | disposition home or self-care (01) ==
LOC: LAB 13:07
PROVIDERS: PCP Family Medicine; Visit Provider Family Medicine
DX: C80.1 Malignant (primary) neoplasm, unspecified (principal); R22.1 Localized swelling, mass and lump, neck; Z01.818 Encounter for other preprocedural examination
CPT/HCPCS: 36415; 71250; 74177; 82565; Q9967

== ENCOUNTER 2023-12-01 07:38 | Outpatient (RCR) | payer OTHER, SELFPAY ==
[2023-12-01 16:49] LABS: Basophils Percent Auto 0.2 % (0.2-2.0); Eosinophils Absolute Auto 0.2 10^3/uL (0.0-0.7); Eosinophils Percent Auto 1.6 % (0.9-7.0); Hematocrit 41.1 % (36.0-48.0); Hemoglobin 13.7 g/dL (12.0-16.0); Immature Granulocytes Abs Auto 0.02 10^3/uL (0.00-0.03); Immature Granulocytes Pct Auto 0.2 % (0.0-0.5); Lymphocytes Absolute Auto 0.8 10^3/uL (1.2-3.8); Lymphocytes Percent Auto 8.9 % (20.5-60.0); Mean Corpuscular HGB Conc 33.3 g/dL (29.9-35.2); Mean Corpuscular Hemoglobin 30.4 pg (26.7-34.0); Mean Corpuscular Volume 91.1 fL (81.0-99.0); Mean Platelet Volume 13.2 fL (9.5-13.5); Monocytes Absolute Auto 0.6 10^3/uL (0.3-0.8); Neutrophils Absolute Auto 7.5 10^3/uL (1.4-6.5); Neutrophils Percent Auto 82.1 % (43.0-75.0); Platelet Count 172 10^3/uL (150-450); Red Blood Count 4.51 10^6/uL (4.20-5.40); Red Cell Distribution Width 12.9 % (11.0-15.0); White Blood Count 9.1 10^3/uL (4.0-11.0)
[2023-12-01 16:54] LABS: Erythrocyte Sedimentation Rate 25 mm/hr (<=30)
[2023-12-01 16:59] LABS: Alanine Aminotransferase 17 U/L (14-59); Albumin Globulin Ratio 0.9; Albumin Level 3.5 g/dL (3.4-5.0); Alkaline Phosphatase 103 U/L (46-116); Anion Gap 6.1; Aspartate Amino Transferase 10 U/L (15-37); BUN Creatinine Ratio 19.8; Bilirubin Total 0.5 mg/dL (0.2-1.0); C Reactive Protein <0.50 mg/dL (<=0.50); Calcium 9.1 mg/dL (8.5-10.1); Carbon Dioxide 31.1 mmol/L (21.0-32.0); Chloride 104 mmol/L (98-107); Estimated GFR (African America >60 (>=60); Estimated GFR (Non-African Ame >60 (>=60); Globulin 3.8 g/dL; Glucose 98 mg/dL (74-106); Lactate Dehydrogenase 188 U/L (81-234); Potassium 4.2 mmol/L (3.5-5.1); Sodium 137 mmol/L (136-145); Total Protein 7.3 g/dL (6.4-8.2)
[2023-12-01 17:15] LABS: Percent Iron Saturation 23.1 %
[2023-12-03 16:10] LABS: Hgb A 97.3 % (96.4-98.8); Hgb A2 2.7 % (1.8-3.2)
== END 2023-12-27 23:59 | disposition home or self-care (01) ==
LOC: INF 07:38
PROVIDERS: PCP Family Medicine; Visit Provider Internal Medicine Hematology & Oncology
DX: R59.0 Localized enlarged lymph nodes (principal); Z87.891 Personal history of nicotine dependence; Z90.711 Acquired absence of uterus with remaining cervical stump
CPT/HCPCS: 36415; 80053; 82728; 83540; 83550; 83615; 85025; 85652; 86140; G0463

== ENCOUNTER 2023-12-03 14:52 | Outpatient (OUT) | payer OTHER, SELFPAY ==
--- NOTE | 2023-12-03 14:55 | US_ITS ---
The [address] [address] Patient Name: MAKAYLA GRIFFITHS MRN: [id number] date: 1970 Sex: F Assigned Patient Location: US Current Patient Location: US Accession/Order Number: [id number] Exam Date: 12/03/2023 14:55 Report Date: 12/05/2023 07:03 At the request of: STEPHANIE FLEMING Procedure: US thyroid EXAMINATION: US thyroid HISTORY: neck mass R22.1 COMPARISON: No relevant comparison available. FINDINGS: RIGHT LOBE: Slightly prominent, but normal echotexture. Lobe size: 5.6 x 2.2 x 1.7 cm LEFT LOBE: Contains a 2.8 x 1.4 x 1.4 cm TR 3 nodule within mid body. Lobe size: 5.2 x 2.2 x 2.2 cm ISTHMUS: Slightly heterogeneous and thickened. Thickness: 5 mm US/US thyroid IMPRESSION: 1. Nonspecific 2.8 cm TR 3 nodule within left lobe. Ultrasound-guided fine-needle aspiration is recommended. TR3 (mildly suspicious): > 1.5 cm, follow-up ultrasound in 1, 3, and 5 years. > 2.5 cm, fine needle aspiration. Electronically authenticated by: AIDEN NOGUEIRA Date: 12/05/2023 07:03
== END 2023-12-03 14:53 | disposition home or self-care (01) ==
LOC: US 14:52
PROVIDERS: PCP Family Medicine; Visit Provider Family Medicine
DX: R22.1 Localized swelling, mass and lump, neck (principal)
CPT/HCPCS: 76536

== ENCOUNTER 2023-12-10 14:59 | Outpatient (OUT) | payer OTHER, SELFPAY ==
--- NOTE | 2023-12-10 15:01 | MM_ITS ---
Patient Name: MAKAYLA GRIFFITHS MR#: [id number] : 1970 Exam Date: 12/10/2023 Ordering Doctor: DR Omid Hubbard . RADIOLOGY REPORT PROCEDURE: MM TOMOSYNTHESIS SCREENING BI COMPARISON: MG MAMM SCREEN 3D [place] CAD, 04/02/2022. MG MAMM DX 3D LT CAD, 11/24/2018. MG MAMM SCREEN 3D [place] CAD, 11/09/2018. INDICATIONS: screening Calculator Name NCI Breast Cancer Risk Assessment Tool 5 Year Breast Cancer Risk 1.60% Lifetime Breast Cancer Risk 10.70% Personal Breast Cancer No Personal Ovarian Cancer No Treatments None Family Cancers Mother with breast cancer at age 68; Grandmother-maternal with breast cancer at age ~70. LOCATION: [facility] BREAST COMPOSITION: Heterogeneously dense,which may obscure small masses. FINDINGS: DIAGNOSTIC CATEGORY 0--INCOMPLETE: NEED ADDITIONAL IMAGING EVALUATION. RIGHT BREAST: No significant suspicious finding. No significant change has occurred. LEFT BREAST: Significant increase in punctate calcifications within a semi tight grouping within the upper-outer quadrant, mid breast approximately 3 o'clock. Spot magnification views and ultrasound evaluation recommended for further clarification. RECOMMENDATIONS: ADDITIONAL MAMMOGRAPHIC VIEWS REQUIRED: LEFT BREAST - LEFT CRANIOCAUDAL SPOT MAGNIFICATION VIEW - LEFT OBLIQUE SPOT MAGNIFICATION VIEW - ULTRASOUND: LEFT BREAST PLEASE NOTE: A NORMAL MAMMOGRAM DOES NOT EXCLUDE THE POSSIBILITY OF BREAST CANCER. A CLINICALLY SUSPICIOUS PALPABLE LUMP SHOULD BE BIOPSIED. Dictated by: Enmanuel Donahue M.D. on 12/11/2023 at 14:54 Approved by: Enmanuel Donahue M.D. on 12/11/2023 at 15:00
--- OUTSIDE RECORDS SUMMARY | 2023-12-10 15:16 | XMS_ITS | CCD ---
Author Name Unknown Address [address] [place] [address] Organization [facility] Care Team Providers Care Motor Vehicle Operator Road Supervisor Name Role Phone GIUSEPPE, SYLVIA Chin Attending [...] Unavailable MD Stephanie Hubbard Primary Care Provider [phone] MD Enmanuel Donahue Attending Provider Stephanie Hubbard Primary Care Unavailable Enmanuel Donahue Attending Unavailable Enmanuel Donahue Admitting Unavailable Allergies Allergy Classification Reported Allergen(s) Allergy Type Date of Onset Reaction(s) Facility (4 sources) Codeine; Translations: [CODEINE] Drug Allergy 04-23-20 18 Gastrointestinal Upset [facility] Repository (1 source) bee venom Drug allergy (disorder) [facility] Repository (1 source) Grass pollen Drug allergy (disorder) [facility] Repository (1 source) house dust allergenic extract Drug Allergy [facility] Repository (1 source) Mold Extract Drug Allergy [facility] Repository (1 source) Penicillin Drug Allergy [facility] Repository (1 source) Ragweed Drug allergy (disorder) [facility] Repository (2 sources) Penicillins; Translations: [Penicillins] Allergy to substance 12-21-19 19 [facility] Medications Current Medications Medication Drug Class(es) [...] by mouth every four hours Hydrocodone-Acetam inophen ([place]) 5-325 mg tablet Discontinued 1 TAB PO [...] Specimen: Received: 11/16/23 Status: SANTOS Req Num: [id number] Spec Type: Cytology Subm Dr: Enmanuel Donahue MD Tissues: A FNA SLIDES NOPATH (LT NECK MASS POST) Procedures: HE/2, CDX2, NAPSIN A, TTF1, Cyto Int and Re, MOC31, PAPSTN/7 Age/ Patient Sex Location Account Attending Physician Sarah Beth Griffiths 53/F LABELL [id number] Enmanuel Donahue MD SPEC NUM: [id number] RECD: 11/16/23 STATUS: SANTOS REQ NUM: [id number] JAY: 11/12/23 DR: Enmanuel Donahue MD ENTERED: 11/16/23 [facility] DR: Itzel,Lab SPEC TYPE: Cytology DEPT: [facility] ENTERED BY: [id number] RECV BY: [id number] ORDERED: HE/2, CDX2, NAPSIN A, TTF1, Cyto [...] [id number] Received: 11/16/23 Status: SANTOS [place] Num: [id number] Spec Type: Cytology Subm Dr: Enmanuel Donahue MD Tissues: A FNA SLIDES NOPATH (LT NECK MASS POST) Procedures: HE/2, CDX2, NAPSIN A, TTF1, Cyto Int and Re, MOC31, PAPSTN/7 -------- Patient: Sarah Beth Griffiths [id number] (Continued) -------- Specimen: [id number] Received: 11/16/23 (Continued) Signed (signature on file) Margarita Montelongo MD 11/17/23 1633 -------- Specimen: [id number] Received: 11/16/23 Status: SANTOS [place] Num: [id number] Spec Type: Cytology Subm Dr: Enmanuel Donahue MD Tissues: A FNA SLIDES NOPATH (LT NECK MASS POST) Procedures: HE/2, CDX2, NAPSIN A, TTF1, Cyto Int and Re, MOC31, PAPSTN/7 -------- Patient: Sarah Beth Griffiths [id number] (Continued) -------- Specimen: [id number] Received: 11/16/23 (Continued) Gross Description Received in Cytolyt labeled with the patient's name, date of and left neck mass per requisition is <1 ml colorless clear fixed fluid. 1 Thin Prep slides are prepared. 1 cell blocks are prepared. 6 smears for pap are additionally received. (CC/ak) CPT Codes 35887, 03008k6, 23745n5, 18718w8 -------- -------- Specimen: [id number] Received: 11/16/23 Status: SANTOS [place] Num: [id number] Spec Type: Cytology Subm Dr: Enmanuel Donhaue MD Tissues: A FNA SLIDES NOPATH (LT NECK MASS POST) Procedures: HE/2, CDX2, NAPSIN A, TTF1, Cyto Int and Re, MOC31, PAPSTN/7 -------- Patient: Sarah Beth Griffiths [id number] (Continued) -------- Signed (signature on file) Joseph Montelongo MD 11/17/23 1633 [facility] MG MAMM SCREEN 3D THEODORE CADon 04-02-2022 MG MAMM SCREEN 3D THEODORE CAD Patient: AYESARAH BETH. Exam Date: 04/02/2022 : 1970 Gender:F Ordering : DR STEPHANIE HUBBARD . Admission #: [id number] Family : Order #: [id number] CLICK HERE TO VIEW EXAM RADIOLOGY REPORT [...] breast cancer at age 68. LOCATION: [facility] BREAST COMPOSITION: Heterogeneously dense,which may obscure [...] M.D. on 04/03/2022 at 14:[address] [facility] Ferritinon 10-15-2018 Ferritin mass conc 46.9 ng/mL Normal 14.7-205.1 [facility] Comment on above: Performed By: #### R CBCDF #### [facility] [address] [place], [place] [address] Iron and TIBCon 10-15-2018 Iron mass conc 69 ug/dL Normal 41-186 [facility] Comment on above: Performed By: #### R CBCDF #### [facility] [address] [place], [place] [address] TIBC 366 ug/dL Normal 232-386 [facility] Comment on above: Performed By: #### R CBCDF #### [facility] [address] [place], [place] [address] Transferrin Saturatn 19 % Normal 15-57 [facility] Comment on above: Performed By: #### R CBCDF #### [facility] [address] [facility] [address] Remote Abs Gran + CBC (for [facility] HC use only)on 10-15-2018 Absol Gran Count 6.30 k/uL Normal 1.45-7.50 [facility] Erythrocyte distribution width Ratio (RBC) 12.3 % Normal 11.5-15.0 [facility] Hematocrit Volume Fraction (Bld) 43.8 % Normal 36.0-46.0 [facility] Hemoglobin mass conc (Bld) 14.8 g/dL Normal 11.5-15.5 [facility] MCH Entitic mass (RBC) 30.7 pG Normal 26.0-34.0 [facility] MCHC mass conc (RBC) 33.8 g/dL Normal 30.5-36.0 [facility] MCV Entitic volume (RBC) 90.9 fL Normal 80.0-100.0 [facility] Platelet mean volume Entitic volume (Bld) 12.5 fL Normal 9.0-12.7 [facility] Platelets #/vol (Bld) 189 10*3/uL Normal 150-400 [facility] RBC #/vol (Bld) 4.82 10*6/uL Normal 3.90-5.20 [facility] WBC #/vol (Bld) 8.02 10*3/uL Normal 3.70-11.00 [facility] Ferritinon 08-24-2018 Ferritin mass conc 32.1 ng/mL Normal 14.7-205.1 [facility] Comment on above: Performed By: #### F ERR, IRON ####[facility] [address] [place], [place] [phone] Iron and TIBCon 08-24-2018 Iron mass conc 75 ug/dL Normal 41-186 [facility] Comment on above: Performed By: #### F ERR, IRON ####[facility] [address] [place], [place] [phone] TIBC 375 ug/dL Normal 232-386 [facility] Comment on above: Performed By: #### F ERR, IRON ####[place] [phone] Transferrin Saturatn 20 % Normal 15-57 [facility] Comment on above: Performed By: #### F ERR, IRON ####[place] [phone] Remote Abs Gran + CBC (for [facility] HC use only)on 08-24-2018 Absol Gran Count 5.78 k/uL Normal 1.45-7.50 [facility] Comment on above: Performed By: #### R AGCBC ####[place] [phone] Comment MXB=[id number] Normal [facility] Comment on above: Result Comment: Gregoria ferris checked for a clot. Preliminary result. Interpret with caution. Final results may vary. Results requested and read back by: KAYCE/BELEM/Reinaldo/08/24/18/LATONYA Performed By: #### R AGCBC ####[place] [phone] Erythrocyte distribution width Ratio (RBC) 19.3 % High 11.5-15.0 [facility] Comment on above: Performed By: #### R AGCBC ####[address] [phone] Hematocrit Volume Fraction (Bld) 41.9 % Normal 36.0-46.0 [facility] Comment on above: Performed By: #### R AGCBC ####[place] [phone] Hemoglobin mass conc (Bld) 14.0 g/dL Normal 11.5-15.5 [facility] Comment on above: Performed By: #### R AGCBC ####[address] [phone] MCH Entitic mass (RBC) 28.8 pG Normal 26.0-34.0 [facility] Comment on above: Performed By: #### R AGCBC ####[place] [id number] [place] [phone] MCHC mass conc (RBC) 33.4 g/dL Normal 30.5-36.0 [facility] Comment on above: Performed By: #### R AGCBC ####[facility] [place], [place] [phone] MCV Entitic volume (RBC) 86.2 fL Normal 80.0-100.0 [facility] Comment on above: Performed By: #### R AGCBC ####[place] [phone] Platelets #/vol (Bld) 148 10*3/uL Low 150-400 [facility] Comment on above: Result Comment: Resu lt rechecked. No clot detected. Performed By: #### R AGCBC ####[place] [phone] RBC #/vol (Bld) 4.86 10*6/uL Normal 3.90-5.20 [facility] Comment on above: Performed By: #### R AGCBC ####[place] [phone] WBC #/vol (Bld) 7.56 10*3/uL Normal 3.70-11.00 [facility] Comment on above: Performed By: #### R AGCBC ####[place] [phone] CNOVSPon 07-16-2018 CNOVSP Visit (SP) Office ([place]) SARAH BETH GRIFFITHS ([id number]) 1970 F Date Time Provider Department 07/16/18 9:45 AM SYLVIA CHIN During your visit today, we recorded the following information about you: Temperature Pulse Respiration Blood pressure 98 degrees 71/minute 18/minute 139/66 Weight Height 85.3 kg 1.63 m Sylvia Chin MD 07/16/2018 12:23 PM Signed HPI Sarah Beth Griffiths is a 48 year old female who presents in follow up. BUSINESS OFFICE MANAGER is working her up. She had IV [...] ICD10: D50.9 Lab work Defer management to BUSINESS OFFICE MANAGER See me in follow up - IRON + TIBC - FERRITIN BLD - ABS GRAN CT + CBC (FOR REMOTE [facility] USE) Sylvia Chin MD Referring Provider: MACIEL GARZA, PRIETO HIDALGO [[id number]] Allergies As of Date: 07/16/2018 Noted Allergy Reaction CODEINE 06/17/2018 16 - Unknown Date Reviewed: 07/16/2018 Reviewed by: Yadi Cisneros - Fully Assessed Reason for Visit: Anemia [6] Cmt: 4 week follow up Primary Visit Diagnosis:Vaginal bleeding [N93.9] Other Visit Diagnosis:Iron deficiency anemia, unspecified iron deficiency anemia type [D50.9] Order(s):IRON + TIBC [SQIRON] Order #: [id number] STANDING FERRITIN BLD [SQFERR] Order #: [id number] STANDING ABS GRAN CT + CBC (FOR REMOTE [facility] USE) [SQRAGCBC] Order #: [id number] STANDING Disposition: Return in about 6 months [...] by SYLVIA CHIN MD on 07/16/18 Normal [facility] PROGRESSon 07-16-2018 Protein mass conc HNO ID: [id number] Author: Sylvia Chin Service: (none) Author Type: Physician Type: Progress Notes Filed: 07/16/2018 12:23 PM Note Text: MARVEL Griffiths is a 48 year old female who presents in follow up. BUSINESS OFFICE MANAGER is working her up. She had IV [...] ICD10: D50.9 Lab work Defer management to BUSINESS OFFICE MANAGER See me in follow up - IRON + TIBC - FERRITIN BLD - ABS GRAN CT + CBC (FOR REMOTE [facility] USE) Sylvia Chin MD Normal [facility] Remote Abs Gran + CBC (for [facility] HC use only)on 07-16-2018 Absol Gran Count 5.67 k/uL Normal 1.45-7.50 [facility] Hematocrit Volume Fraction (Bld) 37.3 % Normal 36.0-46.0 [facility] Hemoglobin mass conc (Bld) 11.7 g/dL Normal 11.5-15.5 [facility] MCH Entitic mass (RBC) 25.9 pG Low 26.0-34.0 [facility] MCHC mass conc (RBC) 31.4 g/dL Normal 30.5-36.0 [facility] MCV Entitic volume (RBC) 82.5 fL Normal 80.0-100.0 [facility] Platelets #/vol (Bld) 187 10*3/uL Normal 150-400 [facility] Comment on above: Result Comment: [place] f[place]is checked for a clot. RBC #/vol (Bld) 4.52 10*6/uL Normal 3.90-5.20 [facility] WBC #/vol (Bld) 7.55 10*3/uL Normal 3.70-11.00 [facility] Remote Abs Gran + CBC (for [facility] HC use only)on 06-28-2018 Absol Gran Count 6.82 k/uL Normal 1.45-7.50 [facility] Comment on above: Performed By: #### R AGCBC ####[facility] [address] [place], [place] [phone] Comment WBC=8.29/MHP=828 Normal [facility] Comment on above: Result Comment: Gregoria ferris checked for a clot. Preliminary result. Interpret with caution. Final results may vary. Results requested and read back by: AIDAN/BELEM/115606/28/18/LATONYA Performed By: #### R AGCBC ####[place] [phone] Erythrocyte distribution width Ratio (RBC) 31.6 % High 11.5-15.0 [facility] Comment on above: Performed By: #### R AGCBC ####[place] [phone] Hematocrit Volume Fraction (Bld) 36.5 % Normal 36.0-46.0 [facility] Comment on above: Performed By: #### R AGCBC ####[place] [phone] Hemoglobin mass conc (Bld) 10.9 g/dL Low 11.5-15.5 [facility] Comment on above: Performed By: #### R AGCBC ####[place] [phone] MCH Entitic mass (RBC) 22.5 pG Low 26.0-34.0 [facility] Comment on above: Performed By: #### R AGCBC ####[place] [phone] MCHC mass conc (RBC) 29.9 g/dL Low 30.5-36.0 [facility] Comment on above: Performed By: #### R AGCBC ####[place] [phone] MCV Entitic volume (RBC) 75.4 fL Low 80.0-100.0 [facility] Comment on above: Performed By: #### R AGCBC ####[place] [address] [place], [place] [phone] Platelets #/vol (Bld) 218 10*3/uL Normal 150-400 [facility] Comment on above: Result Comment: Resu lt checked and verified No clot detected. Performed By: #### R AGCBC ####[address] [phone] RBC #/vol (Bld) 4.84 10*6/uL Normal 3.90-5.20 [facility] Comment on above: Performed By: #### R AGCBC ####[address] [phone] WBC #/vol (Bld) 8.28 10*3/uL Normal 3.70-11.00 [facility] Comment on above: Result Comment: Resu lt checked and verified No clot detected. Performed By: #### R AGCBC ####[address] [phone] CNOVSPon 06-23-2018 CNOVS Visit (SP) Office ([place]) SARAH BETH GRIFFITHS ([id number]) 1970 F Date Time Provider Department 06/23/18 [...] post injectafer and transfusion. She will see BUSINESS OFFICE MANAGER 07/08/18. I will plan on injectafer next [...] follow up She is set to see BUSINESS OFFICE MANAGER 07/08/18 My plan will be injectafer therapy for now to replenish iron stores - ABS GRAN CT + CBC (FOR REMOTE [facility] USE) 2. Vaginal bleeding - ICD9: 623.8, ICD10: N93.9 See above - ABS GRAN CT + CBC (FOR REMOTE [facility] USE) Sylvia Chin MD Referring Provider: [facility], PRIETO HIDALGO [[id number]] Allergies As of Date: 06/23/2018 Noted Allergy Reaction CODEINE 06/17/2018 16 - Unknown Date Reviewed: 06/23/2018 Reviewed by: Gita Escobar - Fully Assessed Reason for Visit: Iron deficiency anemia,unspecified [Other] Cmt: 5 day follow up Primary Visit Diagnosis:Iron deficiency anemia, unspecified iron deficiency anemia type [D50.9] Other Visit Diagnosis:Vaginal bleeding [N93.9] Order(s):ABS GRAN CT + CBC (FOR REMOTE [facility] USE) [SQRAGCBC] Order #: [id number] STANDING Disposition: Return in about 4 weeks [...] by SYLVIA CHIN MD on 06/23/18 Normal [facility] PROGRESSon 06-23-2018 Protein mass conc HNO ID: [id number] Author: Sylvia Chin Service: (none) Author Type: Physician Type: Progress Notes Filed: 06/23/2018 2:58 PM Note Text: MARVEL Sarah Beth Griffiths is a 48 year old female who presents in follow up post injectafer and transfusion. She will see BUSINESS OFFICE MANAGER 07/08/18. I will plan on injectafer next [...] follow up She is set to see BUSINESS OFFICE MANAGER 07/08/18 My plan will be injectafer therapy for now to replenish iron stores - ABS GRAN CT + CBC (FOR REMOTE [facility] USE) 2. Vaginal bleeding - ICD9: 623.8, ICD10: N93.9 See above - ABS GRAN CT + CBC (FOR REMOTE [facility] USE) Sylvia Chin MD Normal [facility] Remote CBCDIF (for [facility] use o nly)on 06-21-2018 Abs Baso 0.04 k/uL Normal <0.11 [facility] Comment on above: Performed By: #### R CBCDF #### [facility] [address] [place] [address] Abs Charlton 0.52 k/uL Normal <0.87 [facility] Comment on above: Performed By: #### R CBCDF #### [facility] [address] [place], [place] [address] Abs Neut 6.98 k/uL Normal 1.45-7.50 [facility] Comment on above: Performed By: #### R CBCDF #### [place] [address] [place], [place] [address] Basophils/100 WBC (Bld) 0.5 % Normal [facility] Comment on above: Performed By: #### R CBCDF #### [address] [address] Comment WBC=8.49.AGC=6.98/PL T =255 Normal [facility] Comment on above: Result Comment: Samp le checked for a clot. Preliminary result. Interpret with caution. Final results may vary. Results requested and read back by: AIDAN/BELEM/1152/9/LATONYA Performed By: #### R CBCDF #### [address] [address] Eosinophils #/vol (Bld) 0.15 10*3/uL Normal <0.46 [facility] Comment on above: Performed By: #### R CBCDF #### [place] [address] [place], [place] [address] Eosinophils/100 WBC (Bld) 1.8 % Normal [facility] Comment on above: Performed By: #### R CBCDF #### [facility] [address] [facility] [place], [place] [address] Erythrocyte distribution width Ratio (RBC) 25.6 % High 11.5-15.0 [facility] Comment on above: Performed By: #### R CBCDF #### [place] [address] [place], [place] [address] Hematocrit Volume Fraction (Bld) 29.5 % Low 36.0-46.0 [facility] Comment on above: Performed By: #### R CBCDF #### [facility] [address] [place], [place] [address] Hemoglobin mass conc (Bld) 8.8 g/dL Low 11.5-15.5 [facility] Comment on above: Performed By: #### R CBCDF #### [place] [address] [place], [place] [address] Lymphocytes #/vol (Bld) 0.80 10*3/uL Low 1.00-4.00 [facility] Comment on above: Performed By: #### R CBCDF #### [place] [address] [place] [address] Lymphocytes/100 WBC (Bld) 9.4 % Normal [facility] Comment on above: Performed By: #### R CBCDF #### [place] [address] MCH Entitic mass (RBC) 20.8 pG Low 26.0-34.0 [facility] Comment on above: Performed By: #### R CBCDF #### [place] [address] MCHC mass conc (RBC) 29.8 g/dL Low 30.5-36.0 [facility] Comment on above: Performed By: #### R CBCDF #### [place] [address] [place] [address] MCV Entitic volume (RBC) 69.6 fL Low 80.0-100.0 [facility] Comment on above: Performed By: #### R CBCDF #### [place] [address] [place] [address] Monocytes/100 WBC (Bld) 6.1 % Normal [facility] Comment on above: Performed By: #### R CBCDF #### [place] [address] [place] [address] Neutrophils/100 WBC (Bld) 82.2 % Normal [facility] Comment on above: Performed By: #### R CBCDF #### [facility] [address] [place] [address] Platelets #/vol (Bld) 255 10*3/uL Normal 150-400 [facility] Comment on above: Result Comment: No c lot detected. Performed By: #### R CBCDF #### [place] [address] [place] [address] RBC #/vol (Bld) 4.24 10*6/uL Normal 3.90-5.20 [facility] Comment on above: Performed By: #### R CBCDF #### [place] [address] [place] [address] WBC #/vol (Bld) 8.49 10*3/uL Normal 3.70-11.00 [facility] Comment on above: Result Comment: Resu lt rechecked. Performed By: #### R CBCDF #### [place] [address] CNOVSPon 06-18-2018 OVS Visit (SP) Office ([place]) SARAH BETH GRIFFITHS ([id number]) 1970 F Date Time Provider Department 06/18/18 [...] SKIN: Negative for lesions, rash, and itching. BUSINESS OFFICE MANAGER: heavy vaginal bleeding PSYCH: Negative for sleep [...] iron beginning next week 3. Refer to BUSINESS OFFICE MANAGER for intractable vaginal bleeding. DDX considered. She has had severe vaginal bleeding since March and will need to see immediate BUSINESS OFFICE MANAGER for workup and diagnosis. - VENTOLIN HFA [...] Chin MD Referring Provider: PRIETO ST SR [[id number]] Allergies As of Date: 06/18/2018 Noted Allergy Reaction CODEINE 06/17/2018 16 - Unknown Date Reviewed: 06/18/2018 Reviewed by: Yadi Cisneros - Fully Assessed Reason for Visit: low hemoglobin [Other] Cmt: new patient consult Primary Visit Diagnosis:Iron deficiency anemia, unspecified iron deficiency anemia type [D50.9] Other Visit Diagnosis:Vaginal bleeding [N93.9] Order(s):TRANSFUSION- BLOOD [0524424] Order #: [id number] CONSULT TO GYNECOLOGY [9013] Order #: [id number]: 1 Disposition: Return in about 5 days [...] by SYLVIA CHIN MD on 06/18/18 Normal [facility] Ferritinon 06-18-2018 Ferritin mass conc 7.5 ng/mL Low 14.7-205.1 [facility] Comment on above: Performed By: #### I YEE, B12, SERFOL, FERR, TSH, MMA #### [place] [address] Folate, Serumon 06-18-2018 Folate mass conc 16.8 ng/mL Normal >4.7 [facility] Comment on above: Performed By: #### I YEE, B12, SERFOL, FERR, TSH, MMA #### [place] [address] Iron and TIBCon 06-18-2018 Iron mass conc 14 ug/dL Low 41-186 [facility] Comment on above: Performed By: #### I YEE, B12, SERFOL, FERR, TSH, MMA #### [place] [address] [place] [address] TIBC 486 ug/dL High 232-386 [facility] Comment on above: Performed By: #### I YEE, B12, SERFOL, FERR, TSH, MMA #### [place] [address] [place] [address] Transferrin Saturatn 3 % Low 15-57 [facility] Comment on above: Performed By: #### I YEE, B12, SERFOL, FERR, TSH, MMA #### [facility] [address] [place], [place] [address] Methylmalonic Acidon 018 Methylmalonic Acid 156 nmol/L Normal 79-376 [facility] Comment on above: Result Comment: This test was developed and its performance characteristics determined by [facility]'s Vikash Annmarie [facility] Pathology and Laboratory Medicine [place] ([facility] [email or web address]]PLMO). It has not been cleared or approved by the FDA. [facility] is regulated under CLIA as qualified to perform high-complexity testing. This test is used for clinical purposes. It should not be regarded as investigational or for research. Performed By: #### I YEE, B12, SERFOL, FERR, TSH, MMA #### [facility] [address] [place], [place] [address] PROGRESSon 06-18-2018 Protein mass conc HNO ID: [id number] Author: Sylvia Chin Service: (none) Author Type: [...] SKIN: Negative for lesions, rash, and itching. BUSINESS OFFICE MANAGER: heavy vaginal bleeding PSYCH: Negative for sleep [...] iron beginning next week 3. Refer to BUSINESS OFFICE MANAGER for intractable vaginal bleeding. DDX considered. She has had severe vaginal bleeding since March and will need to see immediate BUSINESS OFFICE MANAGER for workup and diagnosis. - VENTOLIN HFA [...] CONSULT TO GYNECOLOGY Sylvia Chin MD Normal [facility] Remote CBCDIF (for [facility] use o nly)on 06-18-2018 Abs Baso 0.03 k/uL Normal 0.00-0.10 [facility] Comment on above: Performed By: #### R CBCDF #### [place] [address] Abs Charlton 0.63 k/uL Normal 0.00-0.86 [facility] Comment on above: Performed By: #### R CBCDF #### [place] [id number] Abs Neut 6.40 k/uL Normal 1.45-7.50 [facility] Comment on above: Performed By: #### R CBCDF #### [place] [address] [place] [id number] Basophils/100 WBC (Bld) 0.4 % Normal [facility] Comment on above: Performed By: #### R CBCDF #### [place] [id number] Comment LPO=[id number] Normal [facility] Comment on above: Result Comment: Samp le checked for a clot. Preliminary result. Interpret with caution. Final results may vary. Results requested and read back by: AIDAN/BELEM/94506/18/18/LATONYA Performed By: #### R CBCDF #### [facility] [address] [place] [phone] Eosinophils #/vol (Bld) 0.14 10*3/uL Normal 0.00-0.45 [facility] Comment on above: Performed By: #### R CBCDF #### [facility] [address] [facility] [facility] [place] [phone] Eosinophils/100 WBC (Bld) 1.7 % Normal [facility] Comment on above: Performed By: #### R CBCDF #### [facility] [address] [place] [phone] Erythrocyte distribution width Ratio (RBC) 21.1 % High 11.5-15.0 [facility] Comment on above: Performed By: #### R CBCDF #### [facility] [address] [place] [phone] Hematocrit Volume Fraction (Bld) 21.8 % Low 36.0-46.0 [facility] Comment on above: Performed By: #### R CBCDF #### [facility] [address] [place] [phone] Hemoglobin mass conc (Bld) 6.0 g/dL Low 11.5-15.5 [facility] Comment on above: Performed By: #### R CBCDF #### [facility] [address] [place] [phone] Lymphocytes #/vol (Bld) 1.05 10*3/uL Normal 1.00-4.00 [facility] Comment on above: Performed By: #### R CBCDF #### [facility] [place] [phone] Lymphocytes/100 WBC (Bld) 12.7 % Normal [facility] Comment on above: Performed By: #### R CBCDF #### [facility] [place] [phone] MCH Entitic mass (RBC) 18.1 pG Low 26.0-34.0 [facility] Comment on above: Performed By: #### R CBCDF #### [place] [id number] [place], [place] [address] MCHC mass conc (RBC) 27.5 g/dL Low 30.5-36.0 [facility] Comment on above: Performed By: #### R CBCDF #### [place] [id number] [place] [address] MCV Entitic volume (RBC) 65.7 fL Low 80.0-100.0 [facility] Comment on above: Performed By: #### R CBCDF #### [address] [address] Monocytes/100 WBC (Bld) 7.6 % Normal [facility] Comment on above: Performed By: #### R CBCDF #### [place] [address] Neutrophils/100 WBC (Bld) 77.6 % Normal [facility] Comment on above: Performed By: #### R CBCDF #### [place] [id number] Platelet mean volume Entitic volume (Bld) 11.0 fL Normal 9.0-12.7 [facility] Comment on above: Performed By: #### R CBCDF #### [place] [phone] Platelets #/vol (Bld) 286 10*3/uL Normal 150-400 [facility] Comment on above: Result Comment: Resu lt checked and verified No clot detected. Performed By: #### R CBCDF #### [address] [address] RBC #/vol (Bld) 3.32 10*6/uL Low 3.90-5.20 [facility] Comment on above: Performed By: #### R CBCDF #### [place] [phone] [place] [address] WBC #/vol (Bld) 8.25 10*3/uL Normal 3.70-11.00 [facility] Comment on above: Performed By: #### R CBCDF #### [place] [phone] [place] [address] TSHon 06-18-2018 Thyrotropin Qn 1.360 uU/mL Normal 0.400-5.500 [facility] Comment on above: Result Comment: If t he patient is , TSH reference range varies by gestational period: First Trimester 0.100-2.500 uU/mL Second Trimester 0.200-3.000 uU/mL Third Trimester 0.300-3.000 uU/mL References: 1. Logan L, Tommy M, Jason EK, et al. Management of Thyroid Dysfunction during and : An Endocrine Society Clinical Practice Guideline. J Clin Endocrinol Metab, 2012:97:5189-9089. 2. Chris ACEVEDO. Overview of thyroid disease in . UpToDate. 2016. Accessed on March 14, 2016. Performed By: #### I YEE, B12, SERFOL, FERR, TSH, MMA #### [facility] [address] [place] [address] Vitamin B12on 06-18-2018 Cobalamin (Vitamin B12) mass conc 378 pg/mL Normal 232-1245 [facility] Comment on above: Performed By: #### I YEE, B12, SERFOL, FERR, TSH, MMA #### [facility] [address] [place] [id number] Encounters Encounter Date Encounter Type Care Provider Facility Start: 11-12-2023 End: 11-12-2023 ambulatory Stephanie Hubbard Facility:[facility] Start: 11-12-2023 End: 11-12-2023 ambulatory MD Stephanie Hubbard Work Phone: [facility] Work Phone: Start: 11-12-2023 End: 11-12-2023 Departed Referred MD Stephanie Hubbard Work Phone: [facility] Start: 05-28-[address] STEPHANIE HUBBARD Facility :[facility] Start: 04-02-2022 End: 04-03-[address] STEPHANIE HUBBARD Facility:[facility] Start: 03-25-[address] STEPHANIE HUBBARD Facility :[facility] Start: 10-17-[address] STEPHANIE HUBBARD Facility :[facility] Start: 10-15-2018 End: 10-15-2018 Patient encounter procedure SYLVIA Chin ADELINATIN [facility] Start: 10-13-2018 Patient encounter procedure SYLVIA Chin ADELINATIN [facility] Start: 08-24-2018 End: 08-24-2018 Patient encounter procedure SYLVIA Chin GIUSEPPE [facility] Start: 07-16-2018 End: 07-19-2018 Patient encounter procedure SYLVIA Chin GIUSEPPE [facility] Start: 06-28-2018 End: 06-28-2018 Patient encounter procedure SYLVIA CHIN [facility] Start: 06-28-2018 End: 06-29-2018 Patient encounter procedure SYLVIA CHIN [facility] Start: 06-23-2018 End: 06-24-2018 Patient encounter procedure SYLVIA CHIN [facility] Start: 06-21-2018 End: 06-22-2018 Patient encounter procedure SYLVIA CHIN [facility] Start: 06-18-2018 End: 06-21-2018 Patient encounter procedure SYLVIA Chin GIUSEPPE [facility] Payers Date Payer Category Payer Self-pay [id number] 1970 Unknown [id number] [id number] 1970 Unknown [id number] 1970 Unknown [id number] 2.16.84 [id number] 1970 Unknown [id number] [id number] [id number] 1961 Self-pay [id number] 1961 Unknown [id number] Unknown [employer]/BS [id number] Unknown [id number] [id number] Social History Date Type Detail Facility Start: 04-23-2018 Tobacco smoking stat us SDIS Smoker (finding) [facility] Start: 1970 Sex Assigned At Female F [facility] Evaluation note Note Date & Type Note Facility Evaluation note No assessment information availa ble [facility] Work Phone: Summary Purpose Family History No Family History Records FoundNo Family History Records FoundNo Family History Records Found Advance Directives No Advanced Directives Records Found Advance Directive Response Recorded Date/ Time Advance Directives No May 7:47pm Additional Source Comments INFORMATION SOURCE (unrecogn ized section and content) DATE CREATED AUTHOR 10/24/2018 [facility] DATE CREATED AUTHOR AUTHOR'S ORGANIZ ATION 05/26/2022 [facility] DATE CREATED AUTHOR AUTHOR'S ORGANIZ ATION 11/24/2023 [facility] Care Teams (unrecognized sec tion and content) [...] BE BASED ON THE PRIMARY CLINICAL RECORDS. [facility] [employer] [facility]. provides no warranty or guarantee of the accuracy or completeness of information in this document.
== END 2023-12-10 15:00 | disposition home or self-care (01) ==
LOC: MAMMO 14:59
PROVIDERS: PCP Family Medicine; Visit Provider Family Medicine
DX: Z12.31 Encounter for screening mammogram for malignant neoplasm of breast (principal); Z80.3 Family history of malignant neoplasm of breast
CPT/HCPCS: 77063; 77067

== ENCOUNTER 2023-12-15 13:39 | Outpatient (OUT) | payer OTHER, SELFPAY ==
--- NOTE | 2023-12-15 13:44 | CT_ITS ---
[address] [address] Patient Name: MAKAYLA GRIFFITHS MRN: [id number] date: 1970 Sex: F Assigned Patient Location: CT Current Patient Location: CT Accession/Order Number: [id number] Exam Date: 12/15/2023 14:08 Report Date: 12/15/2023 15:10 At the request of: STEPHANIE FLEMING Procedure: CT soft tissue neck wo/w con EXAM: CT soft tissue neck wo/w con CLINICAL INDICATION: neck mass R22.1 COMPARISON: None TECHNIQUE: Standard enhanced CT of the neck prior to and following intravenous administration of 99 cc of Omnipaque 300. Axial sections with coronal and sagittal reformats were obtained. Dose reduction techniques were achieved by using automated exposure control and/or adjustment of mA and/or kV according to patient size and/or use of iterative reconstruction technique. FINDINGS: Lymph Nodes/Soft Tissues: No extranodal soft tissue density mass, abnormal enhancement, or fat stranding. No enlarged or morphologically abnormal lymph nodes. Subcutaneous lipoma in the left dorsal paraspinal soft tissues measures approximately 3.1 x 1.7 x 3.3 cm and is adjacent to the cutaneous marker indicating the patient's stated palpable abnormality. There is an adjacent smaller lipoma in the right dorsal paraspinal soft tissues. Nasopharynx: Normal. Suprahyoid Neck: Oropharynx, oral cavity, parapharyngeal, and retropharyngeal spaces are clear and symmetric. Infrahyoid Neck: Larynx, hypopharynx, and supraglottic area are clear and symmetric. Vocal cords are symmetric. Parotid Glands: Normal. Submandibular Glands: Normal. Thyroid: Left thyroid nodule measures at least 1.6 cm. Orbits: Normal. Paranasal Sinuses: Well-aerated. Mastoid Air Cells: Well-aerated. Skull Base: Normal. Thoracic Inlet: Visualized lung apices are clear. Vascular Structures: Symmetric and patent. Musculoskeletal: No acute osseous abnormality. Mild multilevel cervical spondylotic changes. CT/CT soft tissue neck wo/w con IMPRESSION: 1. Subcutaneous lipoma in the left dorsal paraspinal soft tissues measures approximately 3.1 x 1.7 x 3.3 cm and is adjacent to the cutaneous marker indicating the patient's stated palpable abnormality. There is an adjacent smaller lipoma in the right dorsal paraspinal soft tissues. 2. Left thyroid nodule measures at least 1.6 cm. Nonemergent dedicated thyroid ultrasound is recommended for further catheterization. Electronically authenticated by: SALVADOR LERNER Date: 12/15/2023 15:10
--- OUTSIDE RECORDS SUMMARY | 2023-12-15 13:52 | XMS_ITS | CCD ---
Author Organization [employer] Care Team Providers Care [employer] Worker Name Role Phone GIUSEPPE, SYLVIA Chin Attending [...] Care Unavailable BERNADETTE, DR BROWN Admitting Unavailable MD Stephanie Hubbard Primary Care Provider MD Enmanuel Donahue Attending Provider Stephanie Hubbard Primary Care Unavailable Enmanuel Donahue Attending Unavailable Enmanuel Donahue Admitting Unavailable Allergies Allergy Classification Reported Allergen(s) Allergy Type Date of Onset Reaction(s) Facility (4 sources) Codeine; Translations: [CODEINE] Drug Allergy 04-23-20 18 Gastrointestinal Upset [facility] Repository (1 source) bee venom Drug allergy (disorder) [facility] Repository (1 source) Grass pollen Drug allergy (disorder) [facility] Repository (1 source) house dust allergenic extract Drug Allergy [facility] Repository (1 source) Mold Extract Drug Allergy [facility] Repository (1 source) Penicillin Drug Allergy [facility] Repository (1 source) Ragweed Drug allergy (disorder) [facility] Repository (2 sources) Penicillins; Translations: [Penicillins] Allergy to substance 12-21-19 19 [facility] Medications Current Medications Medication Drug Class(es) Dates [...] by mouth every four hours Hydrocodone-Acetam inophen ([place]) 5-325 mg tablet Discontinued 1 TAB PO Q4H 7 June 04, 2017 April 23, 2018 3:42am [...] Specimen: Received: 11/16/23 Status: SANTOS Req Num: [id number] Spec Type: Cytology Subm Dr: Enmanuel Donahue MD Tissues: A FNA SLIDES NOPATH (LT NECK MASS POST) Procedures: HE/2, CDX2, NAPSIN A, TTF1, Cyto Int and Re, MOC31, PAPSTN/7 Age/ Patient Sex Location Account Attending Physician GriffithsSarah Beth José Manuel 53/F LABELL [id number] Enmanuel Donahue MD SPEC NUM: [id number] RECD: 11/16/23 STATUS: SANTOS REQ NUM: [id number] JAY: 11/12/23 DR: Enmanuel Donahue MD ENTERED: 11/16/[address] [facility] DR: Itzel,Lab SPEC TYPE: Cytology DEPT: [facility] ENTERED BY: [id number] RECV BY: [id number] ORDERED: HE/2, CDX2, NAPSIN A, TTF1, Cyto [...] for further assessment as appropriate -------- Specimen: [id number] Received: 11/16/23 Status: SANTOS [place] Num: [id number] Spec Type: Cytology Subm Dr: Enmanuel Donahue MD Tissues: A FNA SLIDES NOPATH (LT NECK MASS POST) Procedures: HE/2, CDX2, NAPSIN A, TTF1, Cyto Int and Re, MOC31, PAPSTN/7 -------- Patient: Sarah Beth Griffiths [id number] (Continued) -------- Specimen: [id number] Received: 11/16/23 (Continued) Signed (signature on file) Joseph Montelongo MD 11/17/23 1633 -------- Specimen: [id number] Received: 11/16/23 Status: SANTOS [place] Num: [id number] Spec Type: Cytology Subm Dr: Enmanuel Donahue MD Tissues: A FNA SLIDES NOPATH (LT NECK MASS POST) Procedures: HE/2, CDX2, NAPSIN A, TTF1, Cyto Int and Re, MOC31, PAPSTN/7 -------- Patient: Sarah Beth Griffiths [id number] (Continued) -------- Specimen: [id number] Received: 11/16/23 (Continued) Gross Description Received in Cytolyt labeled with the patient's name, date of and left neck mass per requisition is <1 ml colorless clear fixed fluid. 1 Thin Prep slides are prepared. 1 cell blocks are prepared. 6 smears for pap are additionally received. (CC/nh) CPT Codes 75511, 55947r9, 63491a9, 76660u6 -------- -------- Specimen: [id number] Received: 11/16/23 Status: SANTOS [place] Num: [id number] Spec Type: Cytology Subm Dr: Enmanuel Donahue MD Tissues: A FNA SLIDES NOPATH (LT NECK MASS POST) Procedures: HE/2, CDX2, NAPSIN A, TTF1, Cyto Int and Re, MOC31, PAPSTN/7 -------- Patient: Sarah Beth Griffiths [id number] (Continued) -------- Signed (signature on file) Joseph Montelongo MD 11/17/23 1633 [facility] MG MAMM SCREEN 3D THEODORE CADon 04-02-2022 MG MAMM SCREEN 3D THEODORE CAD Patient: SARAH BETH GRIFFITHS Exam Date: 04/02/2022 : 1970 Gender:F Ordering : DR STEPHANIE HUBBARD . Admission #: [id number] Family : Order #: [id number] CLICK HERE TO VIEW EXAM RADIOLOGY REPORT [...] breast cancer at age 68. LOCATION: [facility] BREAST COMPOSITION: Heterogeneously dense,which may obscure [...] M.D. on 04/03/2022 at 14:47 Normal [facility] Ferritinon 10-15-2018 Ferritin mass conc 46.9 ng/mL Normal 14.7-205.1 [facility] Comment on above: Performed By: #### R CBCDF #### [facility] [employer] [address] [phone] Iron and TIBCon 10-15-2018 Iron mass conc 69 ug/dL Normal 41-186 [facility] Comment on above: Performed By: #### R CBCDF #### [facility] [employer] [address] [place], [place] [address] TIBC 366 ug/dL Normal 232-386 [facility] Comment on above: Performed By: #### R CBCDF #### [facility] [employer] [address] [place], [place] [address] Transferrin Saturatn 19 % Normal 15-57 [facility] Comment on above: Performed By: #### R CBCDF #### [facility] [employer] [address] [place], [place] [address] Remote Abs Gran + CBC (for F HC use only)on 10-15-2018 Absol Gran Count 6.30 k/uL Normal 1.45-7.50 [facility] Erythrocyte distribution width Ratio (RBC) 12.3 % Normal 11.5-15.0 [facility] Hematocrit Volume Fraction (Bld) 43.8 % Normal 36.0-46.0 [facility] Hemoglobin mass conc (Bld) 14.8 g/dL Normal 11.5-15.5 [facility] MCH Entitic mass (RBC) 30.7 pG Normal 26.0-34.0 [facility] MCHC mass conc (RBC) 33.8 g/dL Normal 30.5-36.0 [facility] MCV Entitic volume (RBC) 90.9 fL Normal 80.0-100.0 [facility] Platelet mean volume Entitic volume (Bld) 12.5 fL Normal 9.0-12.7 [facility] Platelets #/vol (Bld) 189 10*3/uL Normal 150-400 [facility] RBC #/vol (Bld) 4.82 10*6/uL Normal 3.90-5.20 [facility] WBC #/vol (Bld) 8.02 10*3/uL Normal 3.70-11.00 [facility] Ferritinon 08-24-2018 Ferritin mass conc 32.1 ng/mL Normal 14.7-205.1 [facility] Comment on above: Performed By: #### F ERR, IRON ####[facility] [address] [place], [place] [phone] Iron and TIBCon 08-24-2018 Iron mass conc 75 ug/dL Normal 41-186 [facility] Comment on above: Performed By: #### F ERR, IRON ####[facility] [place], [place] [phone] TIBC 375 ug/dL Normal 232-386 [facility] Comment on above: Performed By: #### F ERR, IRON ####[facility] [place], [place] [phone] Transferrin Saturatn 20 % Normal 15-57 [facility] Comment on above: Performed By: #### F ERR, IRON ####[place] [phone] Remote Abs Gran + CBC (for F HC use only)on 08-24-2018 Absol Gran Count 5.78 k/uL Normal 1.45-7.50 [facility] Comment on above: Performed By: #### R AGCBC ####[place] [phone] Comment ZVU=379 Normal [facility] Comment on above: Result Comment: Samp le checked for a clot. Preliminary result. Interpret with caution. Final results may vary. Results requested and read back by: KAYCE/BELEM/Reinaldo/08/24/18/LATONYA Performed By: #### R AGCBC ####[place] [phone] Erythrocyte distribution width Ratio (RBC) 19.3 % High 11.5-15.0 [facility] Comment on above: Performed By: #### R AGCBC ####[place] [phone] Hematocrit Volume Fraction (Bld) 41.9 % Normal 36.0-46.0 [facility] Comment on above: Performed By: #### R AGCBC ####[place] [phone] Hemoglobin mass conc (Bld) 14.0 g/dL Normal 11.5-15.5 [facility] Comment on above: Performed By: #### R AGCBC ####[place] [phone] MCH Entitic mass (RBC) 28.8 pG Normal 26.0-34.0 [facility] Comment on above: Performed By: #### R AGCBC ####[address] [phone] MCHC mass conc (RBC) 33.4 g/dL Normal 30.5-36.0 [facility] Comment on above: Performed By: #### R AGCBC ####[place] [id number] [place], [place] [phone] MCV Entitic volume (RBC) 86.2 fL Normal 80.0-100.0 [facility] Comment on above: Performed By: #### R AGCBC ####[address] [phone] Platelets #/vol (Bld) 148 10*3/uL Low 150-400 [facility] Comment on above: Result Comment: Resu lt rechecked. No clot detected. Performed By: #### R AGCBC ####[address] [phone] RBC #/vol (Bld) 4.86 10*6/uL Normal 3.90-5.20 [facility] Comment on above: Performed By: #### R AGCBC ####[address] [phone] WBC #/vol (Bld) 7.56 10*3/uL Normal 3.70-11.00 [facility] Comment on above: Performed By: #### R AGCBC ####[address] [phone] CNOVSPon 07-16-2018 CNOVSP Visit (SP) Office ([facility]) SARAH BETH GRIFFITHS ([id number]) 1970 F Date Time Provider Department 07/16/18 9:45 AM SYLVIA CHIN During your visit today, we recorded the following information about you: Temperature Pulse Respiration Blood pressure 98 degrees 71/minute 18/minute 139/66 Weight Height 85.3 kg 1.63 m Sylvia Chin MD 07/16/2018 12:23 PM Signed HPI Sarah Beth Griffiths is a 48 year old female who presents in follow up. ONLINE PRODUCER is working her up. She had IV [...] ICD10: D50.9 Lab work Defer management to ONLINE PRODUCER See me in follow up - IRON + TIBC - FERRITIN BLD - ABS GRAN CT + CBC (FOR REMOTE [facility] USE) Sylvia Chin MD Referring Provider: PRIETO ST SR [[id number]] Allergies As of Date: 07/16/2018 Noted Allergy Reaction CODEINE 06/17/2018 16 - Unknown Date Reviewed: 07/16/2018 Reviewed by: Yadi Cisneros - Fully Assessed Reason for Visit: Anemia [6] Cmt: 4 week follow up Primary Visit Diagnosis:Vaginal bleeding [N93.9] Other Visit Diagnosis:Iron deficiency anemia, unspecified iron deficiency anemia type [D50.9] Order(s):IRON + TIBC [SQIRON] Order #: [id number] STANDING FERRITIN BLD [SQFERR] Order #: [id number] STANDING ABS GRAN CT + CBC (FOR REMOTE [facility] USE) [SQRAGCBC] Order #: [id number] STANDING Disposition: Return in about 6 months [...] by SYLVIA CHIN MD on 07/16/18 Normal [facility] PROGRESSon 07-16-2018 Protein mass conc HNO ID: [id number] Author: Sylvia Chin Service: (none) Author Type: Physician Type: Progress Notes Filed: 07/16/2018 12:23 PM Note Text: MARVEL Griffiths is a 48 year old female who presents in follow up. ONLINE PRODUCER is working her up. She had IV [...] ICD10: D50.9 Lab work Defer management to ONLINE PRODUCER See me in follow up - IRON + TIBC - FERRITIN BLD - ABS GRAN CT + CBC (FOR REMOTE [facility] USE) Sylvia Chin MD Normal [facility] Remote Abs Gran + CBC (for F HC use only)on 07-16-2018 Absol Gran Count 5.67 k/uL Normal 1.45-7.50 [facility] Hematocrit Volume Fraction (Bld) 37.3 % Normal 36.0-46.0 [facility] Hemoglobin mass conc (Bld) 11.7 g/dL Normal 11.5-15.5 [facility] MCH Entitic mass (RBC) 25.9 pG Low 26.0-34.0 [facility] MCHC mass conc (RBC) 31.4 g/dL Normal 30.5-36.0 [facility] MCV Entitic volume (RBC) 82.5 fL Normal 80.0-100.0 [facility] Platelets #/vol (Bld) 187 10*3/uL Normal 150-400 [facility] Comment on above: Result Comment: [facility] le checked for a clot. RBC #/vol (Bld) 4.52 10*6/uL Normal 3.90-5.20 [facility] WBC #/vol (Bld) 7.55 10*3/uL Normal 3.70-11.00 [facility] Remote Abs Gran + CBC (for F HC use only)on 06-28-2018 Absol Gran Count 6.82 k/uL Normal 1.45-7.50 [facility] Comment on above: Performed By: #### R AGCBC ####[facility] [address] [place], [place] [phone] Comment WBC=8.29/XOF=812 Normal [facility] Comment on above: Result Comment: Gregoria ferris checked for a clot. Preliminary result. Interpret with caution. Final results may vary. Results requested and read back by: AIDAN/BELEM/1156/06/28/18/LATONYA Performed By: #### R AGCBC ####[place] [phone] Erythrocyte distribution width Ratio (RBC) 31.6 % High 11.5-15.0 [facility] Comment on above: Performed By: #### R AGCBC ####[place] [phone] Hematocrit Volume Fraction (Bld) 36.5 % Normal 36.0-46.0 [facility] Comment on above: Performed By: #### R AGCBC ####[place] [phone] Hemoglobin mass conc (Bld) 10.9 g/dL Low 11.5-15.5 [facility] Comment on above: Performed By: #### R AGCBC ####[place] [phone] MCH Entitic mass (RBC) 22.5 pG Low 26.0-34.0 [facility] Comment on above: Performed By: #### R AGCBC ####[place] [phone] MCHC mass conc (RBC) 29.9 g/dL Low 30.5-36.0 [facility] Comment on above: Performed By: #### R AGCBC ####[place] [phone] MCV Entitic volume (RBC) 75.4 fL Low 80.0-100.0 [facility] Comment on above: Performed By: #### R AGCBC ####[place] [phone] Platelets #/vol (Bld) 218 10*3/uL Normal 150-400 [facility] Comment on above: Result Comment: Resu lt checked and verified No clot detected. Performed By: #### R AGCBC ####[facility] [place], [place] [phone] RBC #/vol (Bld) 4.84 10*6/uL Normal 3.90-5.20 [facility] Comment on above: Performed By: #### R AGCBC ####[place] [address] [place], [place] [phone] WBC #/vol (Bld) 8.28 10*3/uL Normal 3.70-11.00 [facility] Comment on above: Result Comment: Resu lt checked and verified No clot detected. Performed By: #### R AGCBC ####[place] [id number] [place], [place] [phone] CNOVSPon 06-23-2018 [facility] Visit (SP) Office ([facility]) SARAH BETH GRIFFITHS ([id number]) 1970 F Date Time Provider Department 06/23/18 [...] post injectafer and transfusion. She will see ONLINE PRODUCER 07/08/18. I will plan on injectafer next [...] follow up She is set to see ONLINE PRODUCER 07/08/18 My plan will be injectafer therapy for now to replenish iron stores - ABS GRAN CT + CBC (FOR REMOTE [facility] USE) 2. Vaginal bleeding - ICD9: 623.8, ICD10: N93.9 See above - ABS GRAN CT + CBC (FOR REMOTE [facility] USE) Sylvia Chin MD Referring Provider: MACIEL GARZA, PRIETO HIDALGO [[id number]] Allergies As of Date: 06/23/2018 Noted Allergy Reaction CODEINE 06/17/2018 16 - Unknown Date Reviewed: 06/23/2018 Reviewed by: Gita Escobar - Fully Assessed Reason for Visit: Iron deficiency anemia,unspecified [Other] Cmt: 5 day follow up Primary Visit Diagnosis:Iron deficiency anemia, unspecified iron deficiency anemia type [D50.9] Other Visit Diagnosis:Vaginal bleeding [N93.9] Order(s):ABS GRAN CT + CBC (FOR [facility] USE) [facility] Order #: [id number] STANDING Disposition: Return in about 4 weeks [...] by SYLVIA CHIN MD on 06/23/18 Normal [facility] PROGRESSon 06-23-2018 Protein mass conc HNO ID: [id number] Author: Sylvia Chin Service: (none) Author Type: Physician Type: Progress Notes Filed: 06/23/2018 2:58 PM Note Text: MARVEL Sarah Beth Griffiths is a 48 year old female who presents in follow up post injectafer and transfusion. She will see ONLINE PRODUCER 07/08/18. I will plan on injectafer next [...] follow up She is set to see ONLINE PRODUCER 07/08/18 My plan will be injectafer therapy for now to replenish iron stores - ABS GRAN CT + CBC (FOR REMOTE [facility] USE) 2. Vaginal bleeding - ICD9: 623.8, ICD10: N93.9 See above - ABS GRAN CT + CBC (FOR REMOTE [facility] USE) Sylvia Chin MD Normal [facility] Remote CBCDIF (for CRITICAL ACCESS HOSPITAL use o nly)on 06-21-2018 Abs Baso 0.04 k/uL Normal <0.11 [facility] Comment on above: Performed By: #### R CBCDF #### [facility] [employer] [address] [place], [place] [address] Abs [place] 0.52 k/uL Normal <0.87 [facility] Comment on above: Performed By: #### R CBCDF #### [facility] [address] [place] [address] Abs Neut 6.98 k/uL Normal 1.45-7.50 [facility] Comment on above: Performed By: #### R CBCDF #### [place] [address] Basophils/100 WBC (Bld) 0.5 % Normal [facility] Comment on above: Performed By: #### R CBCDF #### [place] [address] Comment WBC=8.49.AGC=6.98/PL T =255 Normal [facility] Comment on above: Result Comment: Gregoria ferris checked for a clot. Preliminary result. Interpret with caution. Final results may vary. Results requested and read back by: AIDAN/BELEM/1152/9/LATONYA Performed By: #### R CBCDF #### [place] [phone] Eosinophils #/vol (Bld) 0.15 10*3/uL Normal <0.46 [facility] Comment on above: Performed By: #### R CBCDF #### [place] [phone] Eosinophils/100 WBC (Bld) 1.8 % Normal [facility] Comment on above: Performed By: #### R CBCDF #### [place] [address] Erythrocyte distribution width Ratio (RBC) 25.6 % High 11.5-15.0 [facility] Comment on above: Performed By: #### R CBCDF #### [place] [address] Hematocrit Volume Fraction (Bld) 29.5 % Low 36.0-46.0 [facility] Comment on above: Performed By: #### R CBCDF #### [place] [address] Hemoglobin mass conc (Bld) 8.8 g/dL Low 11.5-15.5 [facility] Comment on above: Performed By: #### R CBCDF #### [place] [id number] [place], [place] [address] Lymphocytes #/vol (Bld) 0.80 10*3/uL Low 1.00-4.00 [facility] Comment on above: Performed By: #### R CBCDF #### [address] [address] Lymphocytes/100 WBC (Bld) 9.4 % Normal [facility] Comment on above: Performed By: #### R CBCDF #### [address] [address] MCH Entitic mass (RBC) 20.8 pG Low 26.0-34.0 [facility] Comment on above: Performed By: #### R CBCDF #### [address] [address] MCHC mass conc (RBC) 29.8 g/dL Low 30.5-36.0 [facility] Comment on above: Performed By: #### R CBCDF #### [address] [address] MCV Entitic volume (RBC) 69.6 fL Low 80.0-100.0 [facility] Comment on above: Performed By: #### R CBCDF #### [place] [address] [place], [place] [address] Monocytes/100 WBC (Bld) 6.1 % Normal [facility] Comment on above: Performed By: #### R CBCDF #### [address] [address] Neutrophils/100 WBC (Bld) 82.2 % Normal [facility] Comment on above: Performed By: #### R CBCDF #### [facility] [employer] [address] [place] [address] Platelets #/vol (Bld) 255 10*3/uL Normal 150-400 [facility] Comment on above: Result Comment: No c lot detected. Performed By: #### R CBCDF #### [facility] [employer] [address] [place] [address] RBC #/vol (Bld) 4.24 10*6/uL Normal 3.90-5.20 [facility] Comment on above: Performed By: #### R CBCDF #### [facility] [employer] [address] [place] [address] WBC #/vol (Bld) 8.49 10*3/uL Normal 3.70-11.00 [facility] Comment on above: Result Comment: Resu lt rechecked. Performed By: #### R CBCDF #### [facility] [employer] [address] [place] [phone] CNOVSPon 06-18-2018 [facility] Visit (SP) Office ([place]) SARAH BETH GRIFFITHS ([id number]) 1970 F Date Time Provider Department 06/18/18 [...] SKIN: Negative for lesions, rash, and itching. ONLINE PRODUCER: heavy vaginal bleeding PSYCH: Negative for sleep [...] iron beginning next week 3. Refer to ONLINE PRODUCER for intractable vaginal bleeding. DDX considered. She has had severe vaginal bleeding since March and will need to see immediate ONLINE PRODUCER for workup and diagnosis. - VENTOLIN HFA [...] Chin MD Referring Provider: PRIETO ST SR [[id number]] Allergies As of Date: 06/18/2018 Noted Allergy Reaction CODEINE 06/17/2018 16 - Unknown Date Reviewed: 06/18/2018 Reviewed by: Yadi Cisneros - Fully Assessed Reason for Visit: low hemoglobin [Other] Cmt: new patient consult Primary Visit Diagnosis:Iron deficiency anemia, unspecified iron deficiency anemia type [D50.9] Other Visit Diagnosis:Vaginal bleeding [N93.9] Order(s):TRANSFUSION- BLOOD [4468530] Order #: [id number] CONSULT TO GYNECOLOGY [9013] Order #: [id number]: 1 Disposition: Return in about 5 days [...] by SYLVIA CHIN MD on 06/18/18 Normal [facility] Ferritinon 06-18-2018 Ferritin mass conc 7.5 ng/mL Low 14.7-205.1 [facility] Comment on above: Performed By: #### I YEE, B12, SERFOL, FERR, TSH, MMA #### [place] [address] Folate, Serumon 06-18-2018 Folate mass conc 16.8 ng/mL Normal >4.7 [facility] Comment on above: Performed By: #### I YEE, B12, SERFOL, FERR, TSH, MMA #### [place] [phone] Iron and TIBCon 06-18-2018 Iron mass conc 14 ug/dL Low 41-186 [facility] Comment on above: Performed By: #### I YEE, B12, SERFOL, FERR, TSH, MMA #### [place] [phone] TIBC 486 ug/dL High 232-386 [facility] Comment on above: Performed By: #### I YEE, B12, SERFOL, FERR, TSH, MMA #### [place] [phone] Transferrin Saturatn 3 % Low 15-57 [facility] Comment on above: Performed By: #### I YEE, B12, SERFOL, FERR, TSH, MMA #### [address], [place] [address] Methylmalonic Acidon 018 Methylmalonic Acid 156 nmol/L Normal 79-376 [facility] Comment on above: Result Comment: This test was developed and its performance characteristics determined by [facility]'s Vikash Anguiano [facility][Note 3][facility] [place] [facility] It has not been cleared or approved by the FDA. [facility] is regulated under CLIA as qualified to perform high-complexity testing. This test is used for clinical purposes. It should not be regarded as investigational or for research. Performed By: #### I YEE, B12, SERFOL, FERR, TSH, MMA #### [facility] [employer] [address] [place], [place] [address] PROGRESSon 06-18-2018 Protein mass conc HNO ID: [id number] Author: Sylvia Chin Service: (none) Author Type: [...] SKIN: Negative for lesions, rash, and itching. ONLINE PRODUCER: heavy vaginal bleeding PSYCH: Negative for sleep [...] iron beginning next week 3. Refer to ONLINE PRODUCER for intractable vaginal bleeding. DDX considered. She has had severe vaginal bleeding since March and will need to see immediate ONLINE PRODUCER for workup and diagnosis. - VENTOLIN HFA [...] CONSULT TO GYNECOLOGY Sylvia Chin MD [facility] [facility] Remote CBCDIF (for [facility]ITAL use o nly)on 06-18-2018 Abs Baso 0.03 k/uL Normal 0.00-0.10 [facility] Comment on above: Performed By: #### R CBCDF #### [facility] [employer] [facility] [place] [phone] Abs [place] 0.63 k/uL Normal 0.00-0.86 [facility] Comment on above: Performed By: #### R CBCDF #### [facility] [employer] [facility] [place] [phone] Abs Neut 6.40 k/uL Normal 1.45-7.50 [facility] Comment on above: Performed By: #### R CBCDF #### [facility] [employer] [address] [place] [phone] Basophils/100 WBC (Bld) 0.4 % Normal [facility] Comment on above: Performed By: #### R CBCDF #### [facility] [employer] [address] [place] [phone] Comment VHD=564 Normal [facility] Comment on above: Result Comment: Samrasta ferris checked for a clot. Preliminary result. Interpret with caution. Final results may vary. Results requested and read back by: AIDAN/BELEM/945/9/LATONYA Performed By: #### R CBCDF #### [place] [id number] [place] [address] Eosinophils #/vol (Bld) 0.14 10*3/uL Normal 0.00-0.45 [facility] Comment on above: Performed By: #### R CBCDF #### [place] [id number] [place] [address] Eosinophils/100 WBC (Bld) 1.7 % Normal [facility] Comment on above: Performed By: #### R CBCDF #### [place] [address] Erythrocyte distribution width Ratio (RBC) 21.1 % High 11.5-15.0 [facility] Comment on above: Performed By: #### R CBCDF #### [place] [address] Hematocrit Volume Fraction (Bld) 21.8 % Low 36.0-46.0 [facility] Comment on above: Performed By: #### R CBCDF #### [place] [address] Hemoglobin mass conc (Bld) 6.0 g/dL Low 11.5-15.5 [facility] Comment on above: Performed By: #### R CBCDF #### [place] [address] Lymphocytes #/vol (Bld) 1.05 10*3/uL Normal 1.00-4.00 [facility] Comment on above: Performed By: #### R CBCDF #### [place] [address] Lymphocytes/100 WBC (Bld) 12.7 % Normal [facility] Comment on above: Performed By: #### R CBCDF #### [place] [address] MCH Entitic mass (RBC) 18.1 pG Low 26.0-34.0 [facility] Comment on above: Performed By: #### R CBCDF #### [place] [phone] [place] [address] MCHC mass conc (RBC) 27.5 g/dL Low 30.5-36.0 [facility] Comment on above: Performed By: #### R CBCDF #### [place] [phone] [place] [phone] MCV Entitic volume (RBC) 65.7 fL Low 80.0-100.0 [facility] Comment on above: Performed By: #### R CBCDF #### [place] [phone] Monocytes/100 WBC (Bld) 7.6 % Normal [facility] Comment on above: Performed By: #### R CBCDF #### [place] [phone] Neutrophils/100 WBC (Bld) 77.6 % Normal [facility] Comment on above: Performed By: #### R CBCDF #### [place] [phone] Platelet mean volume Entitic volume (Bld) 11.0 fL Normal 9.0-12.7 [facility] Comment on above: Performed By: #### R CBCDF #### [place] [address] Platelets #/vol (Bld) 286 10*3/uL Normal 150-400 [facility] Comment on above: Result Comment: Resu lt checked and verified No clot detected. Performed By: #### R CBCDF #### [place] [address] RBC #/vol (Bld) 3.32 10*6/uL Low 3.90-5.20 [facility] Comment on above: Performed By: #### R CBCDF #### [address] [place], [place] [address] WBC #/vol (Bld) 8.25 10*3/uL Normal 3.70-11.00 [facility] Comment on above: Performed By: #### R CBCDF #### [facility] [address] [place] [address] TSHon 06-18-2018 Thyrotropin Qn 1.360 uU/mL Normal 0.400-5.500 [facility] Comment on above: Result Comment: If t he patient is , TSH reference range varies by gestational period: First Trimester 0.100-2.500 uU/mL Second Trimester 0.200-3.000 uU/mL Third Trimester 0.300-3.000 uU/mL References: 1. Logan L, Tommy M, Jason EK, et al. Management of Thyroid Dysfunction during and : An Endocrine Society Clinical Practice Guideline. J Clin Endocrinol Metab, 2012:97:3391-3786. 2. Chris ACEVEDO. Overview of thyroid disease in . UpToDate. 2016. Accessed on March 14, 2016. Performed By: #### I YEE, B12, SERFOL, FERR, TSH, MMA #### [facility] [address] [place] [phone] Vitamin B12on 06-18-2018 Cobalamin (Vitamin B12) mass conc 378 pg/mL Normal 232-1245 [facility] Comment on above: Performed By: #### I YEE, B12, SERFOL, FERR, TSH, MMA #### [facility] [address] [place] [phone] Encounters Encounter Date Encounter Type Care Provider Facility Start: 11-12-2023 End: 11-12-2023 ambulatory Stephanie Hubbard Facility:[facility] Start: 11-12-2023 End: 11-12-2023 ambulatory MD Stephanie Hubbard Work Phone: [facility] Work Phone: Start: 11-12-2023 End: 11-12-2023 Departed Referred MD Stephanie Hubbard Work Phone: [facility] Start: 05-28-[address] STEPHANIE HUBBARD Facility :[facility] Start: 04-02-2022 End: 04-03-[address] STEPHANIE HUBBARD Facility:[facility] Start: 03-25-[address] STEPHANIE HUBBARD Facility :[facility] Start: 10-17-[address] STEPHANIE HUBBARD Facility :[facility] Start: 10-15-2018 End: 10-15-2018 Patient encounter procedure SYLVIA Chin ADELINATIN [facility] Start: 10-13-2018 Patient encounter procedure SYLVIA CHIN [facility] Start: 08-24-2018 End: 08-24-2018 Patient encounter procedure SYLVIA CHIN [facility] Start: 07-16-2018 End: 07-19-2018 Patient encounter procedure SYLVIA CHIN [facility] Start: 06-28-2018 End: 06-28-2018 Patient encounter procedure SYLVIA CHIN [facility] Start: 06-28-2018 End: 06-29-2018 Patient encounter procedure SYLVIA CHIN [facility] Start: 06-23-2018 End: 06-24-2018 Patient encounter procedure SYLVIA CHIN [facility] Start: 06-21-2018 End: 06-22-2018 Patient encounter procedure SYLVIA CHIN [facility] Start: 06-18-2018 End: 06-21-2018 Patient encounter procedure SYLVIA CHIN [facility] Payers Date Payer Category Payer Self-pay [id number] 1970 Unknown [id number] [id number] [id number] 1970 Unknown [id number] 2.16.84 [id number] 1970 Unknown [id number] 2.16.84 [id number] 1970 Unknown [id number] 2.16.84 [id number] 1961 Self-pay [id number] 1961 Unknown [id number] Unknown [place] [id number] Unknown [id number] [id number] Social History Date Type Detail Facility Start: 04-23-2018 Tobacco smoking stat [facility] Smoker (finding) [facility] Start: 1970 Sex Assigned At Female F [facility] Evaluation note Note Date & Type Note Facility Evaluation note No assessment information availa ble [facility] Work Phone: Summary Purpose Family History No Family History Records FoundNo Family History Records FoundNo Family History Records Found Advance Directives No Advanced Directives Records Found Advance Directive Response Recorded Date/ Time Advance Directives No May 7:47pm Additional Source Comments INFORMATION SOURCE (unrecogn ized section and content) DATE CREATED AUTHOR 10/24/2018 [facility] DATE CREATED AUTHOR AUTHOR'S ORGANIZ ATION 05/26/2022 [facility] DATE CREATED AUTHOR AUTHOR'S ORGANIZ ATION 11/24/2023 [facility] Care Teams (unrecognized sec tion and content) Team Status: Active Member Role Status Elle Hubbard MD Primary Care Provider Active Team [...] BE BASED ON THE PRIMARY CLINICAL RECORDS. [employer] provides no warranty or guarantee of the accuracy or completeness of information in this document.
== END 2023-12-15 13:40 | disposition home or self-care (01) ==
LOC: CT 13:39
PROVIDERS: PCP Family Medicine; Visit Provider Family Medicine
DX: R22.1 Localized swelling, mass and lump, neck (principal); E04.1 Nontoxic single thyroid nodule
CPT/HCPCS: 70492; Q9967

== ENCOUNTER 2024-01-14 12:20 | Day surgery (SDC) | payer OTHER, SELFPAY ==
--- NOTE | 2024-01-14 12:24 | US_ITS ---
[address] [address] Patient Name: MAKAYLA GRIFFITHS MRN: [id number] date: 1970 Sex: F Assigned Patient Location: US Current Patient Location: US Accession/Order Number: [id number] Exam Date: 01/14/2024 12:25 Report Date: 01/14/2024 13:43 At the request of: YE CHERY Procedure: US biopsy thyroid EXAMINATION: US biopsy thyroid HISTORY: nodule COMPARISON: Ultrasound thyroid 12/03/2023 TECHNIQUE: After obtaining informed consent, ultrasound-guided fine needle aspiration was performed in the usual sterile manner. FINDINGS: IMAGING: Ultrasound. BIOPSY NEEDLE: 25-gauge; 4 separate passes LOCATION: Left lobe 2.3 cm heterogeneous nodule. SPECIMEN TYPE: Cellular tissue. LOCAL ANESTHETIC: Buffered Xylocaine. COMPLICATIONS: None. LABORATORY: Prepared slide smears and washings for cell block evaluation. OTHER: Patient experienced pain when needle was deep within the suspicious nodule during each pass, but had no pain external to the nodule. PATHOLOGY: Pending. An addendum will be added when results are available. US/US biopsy thyroid IMPRESSION: 1. Uneventful ultrasound guided fine needle aspiration (FNA). 2. Pathology results are pending. Electronically authenticated by: AIDEN NOGUEIRA Date: 01/14/2024 13:43
[2024-01-14 12:30] VITALS: BP 112/69; PULSE 78; O2SAT 98
[2024-01-14] MEDS: LIDOCAINE HCL 10 ML, SODIUM BICARBONATE 1 MEQ INJ (13:10)
--- NOTE | 2024-01-14 14:53 | SUR.PREOP ---
01/08/24 Pt instructed on procedure ,date, time, and prep.
== END 2024-01-14 13:40 | disposition home or self-care (01) ==
LOC: US 12:20
PROVIDERS: Radiology Diagnostic Radiology; PCP Family Medicine; Visit Provider Otolaryngology
DX: E04.1 Nontoxic single thyroid nodule (principal)
CPT/HCPCS: 10005; 88173; 99999

== ENCOUNTER 2024-02-24 12:34 | Outpatient (OUT) | payer OTHER, SELFPAY ==
--- NOTE | 2024-02-24 12:43 | XR_ITS ---
The [address] [address] Patient Name: MAKAYLA GRIFFITSH MRN: [id number] date: 1970 Sex: F Assigned Patient Location: [facility] Current Patient Location: [facility] Accession/Order Number: [id number] Exam Date: 02/24/2024 13:41 Report Date: 02/24/2024 15:06 At the request of: YE CHERY Procedure: XR chest 2V EXAMINATION: XR chest 2V HISTORY: Preop exam COMPARISON: No relevant comparison available. TECHNIQUE: PA and lateral FINDINGS: LUNGS: No significant pulmonary parenchymal abnormalities. VASCULATURE: No increased pulmonary vasculature. PLEURA: No pneumothorax, effusion, or pleural thickening. CARDIAC: No cardiomegaly or cardiac silhouette abnormality. MEDIASTINUM: No visible mass or adenopathy. BONES: No fracture or visible bone lesion. OTHER: Negative. XR/XR chest 2V IMPRESSION: No acute cardiopulmonary process Electronically authenticated by: MATEO VELOZ Date: 02/24/2024 15:06
--- NOTE | 2024-02-24 12:43 | ECG_ITS ---
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
--- OUTSIDE RECORDS SUMMARY | 2024-02-24 12:48 | XMS_ITS | CCD ---
Demographics Address [address] [place] [address] Preferred Language en Marital Status Restorationist Affiliation Unknown Race White Ethnic Group Not or Lati no Author Organization [facility] Care Team Providers Care Court Orderly Name Role Phone GIUSEPPE, SYLVIA Chin Attending [...] Referring Unavailable FANNING, SYLVIA Chin Referring Unavailable HOAudrey, DR BROWN Primary Care Unavailable BERNADETTE, DR BROWN Admitting Unavailable BERNADETTE, DR BROWN Attending Unavailable BERNADETTE, DR BROWN Primary Care Unavailable BERNADETTE, DR BROWN Admitting Unavailable BERNADETTE, DR BROWN Attending Unavailable BERNADETTE, DR BROWN Consulting Unavailable BERNADETTE, DR BROWN Primary Care Unavailable BERNADETTE, DR BROWN Admitting Unavailable BERNADETTE, DR BROWN Attending Unavailable GODFREY, DR ENMANUEL Soliz Consulting Unavailable BERNADETTE, DR BROWN Attending Unavailable BERNADETTE, DR BROWN Primary Care Unavailable BERNADETTE, DR BROWN Admitting Unavailable MD Stephanie Hubbrad Primary Care Provider [phone] MD Enmanuel Donahue Attending Provider MD Stephanie Hubbard Primary Care Provider [phone] MD Enmanuel Donahue Attending Provider Enmanuel Donahue Admitting Unavailable Enmanuel Donahue Attending Unavailable Stephanie Hubbard Primary Care Unavailable Enmanuel Donahue Admitting Unavailable Enmanuel Donahue Attending Unavailable YE CHERY Attending Unavailable STEPHANIE HUBBARD Referring Unavailable YE CHERY Attending Unavailable Allergies Allergy Classification Reported Allergen(s) Allergy Type Date of Onset Reaction(s) Facility (5 sources) Codeine; Translations: [CODEINE] Drug Allergy 04-23-20 18 Gastrointestinal Upset [facility] Repository (1 source) bee venom Drug allergy (disorder) [facility] Repository (1 source) Grass pollen Drug allergy (disorder) [facility] Repository (1 source) house dust allergenic extract Drug Allergy [facility] Repository (1 source) Mold Extract Drug Allergy [facility] Repository (1 source) Penicillin Drug Allergy [facility] Repository (1 source) Ragweed Drug allergy (disorder) [facility] Repository (3 sources) Penicillins; Translations: [Penicillins] Allergy to substance 12-21-19 19 [facility] Medications Current Medications Medication Drug Class(es) Dates Sig (Normalized) Sig (Original) acetaminophen 500 mg / caffeine 60 mg / pyrilamine maleate 15 mg oral tablet (2 sources) Central Nervous System Stimulant, Methylxanthine Start: 12-20-2018 take 2 tablets by mouth every four to six hours Acetaminophen-Ca ff-Pyrilamine (Midol Max St Menstrual) 500-60-15 mg Tablet Active 2 TAB PO EVERY 4-6 HOURS December 20, 2018 12:00am albuterol 0.21 mg/ml inhalation solution (4 sources) beta2-Adrenergic Agonist Start: 06-01-2017 Albuterol Sulfate Active 0.63 MG CNTNEBULIZ Q4H June 01, 2017 12:00am Start: 06-01-2017 take 1 puff(s) by in halation every four to six hours Albuterol Sulfate Active 1 PUFF INHALATION EVERY 4-6 HOURS June 01, 2017 12:00am Start: 06-01-2017 take 1 puff(s) by in halation every four to six hours Albuterol Sulfate Active 1 PUFF INHALATION EVERY 4-6 HOURS May 31, 2017 11:00pm Completed/Discontinued Medications Medication Drug Class(es) Dates Sig (Normalized) Sig (Original) acetaminophen 325 mg / HYDROcodone bitartrate 5 mg oral tablet (2 sources) Opioid Agonist Start: 06-04-2017 End: 04-23-2018 take 1 tablet by mouth every four hours Hydrocodone-Acetam inophen ([place]) 5-325 mg tablet Discontinued 1 TAB PO Q4H June 04, 2017 April 23, 2018 4:42am acetaminophen 325 mg / oxyCODONE hydrochloride 5 mg oral tablet (2 sources) Opioid Agonist Start: 04-23-2018 End: 12-20-2018 take 2 tablets by mouth every four hours Oxycodone-Acetamin ophen (Percocet) 5-325 mg tablet Discontinued 2 TAB PO Q4H April 23, 2018 December 20, 2018 4:00pm ibuprofen 800 mg oral tablet (2 sources) Nonsteroidal Anti-inflammatory Drug Start: 06-01-2017 End: 04-23-2018 take 800 mg by mouth three times daily Ibuprofen Discontinued 800 MG PO Three times daily June 01, 2017 12:00am April 23, 2018 4:42am ondansetron 8 mg disintegrating oral tablet (2 sources) Serotonin-3 Receptor Antagonist Start: 04-23-2018 End: 04-28-2018 take 1 tablet by mouth every eight hours Ondansetron (Zofran Odt) 8 mg tablet,disintegrat ing Discontinued 8 MG PO Q8H 10 5 April 23, 2018 12:00am April 28, 2018 12:02am Problems Active Problems Problem Classification Problem Date Documented Da te Episodic/Chronic Other female genital disorders (1 source) Abnormal uterine and vaginal bleeding, unspecified; Translations: [Abnormal uterine and vaginal bleeding, unspecified] Onset: 06-18-2018 Chronic Other injuries and conditions due to external causes (2 sources) Contusion; Translations: [Other injury of unspecified body [...] BREAST] Onset: 04-07-2022 Episodic Superficial injury; contusion (2 sources) Contusion of head; Translations: [Contusion of unspecified [...] Test Name Value Interpretation Reference Range Facil ity Claude 01-14-2024 L Specimen: BC Received: 01/15/24 Status: SANTOS [place] Num: [id number] Spec Type: Cytology Subm Dr: Enmanuel Donahue MD Tissues: A FNA SLIDES NOPATH (LT THYROID NOD) Procedures: Cyto Int and Re, PAPSTN/7 Age/ Patient Sex Location Account Attending Physician Sarah Beth Griffiths 53/F LABELL [id number] Enmanuel Donahue MD SPEC NUM: [id number] RECD: 01/15/24 STATUS: SANTOS [place] NUM: [id number] JAY: 01/14/24- DR: Enmanuel Donahue MD ENTERED: 01/15/[address] [facility] [address]: Itzel,Lab SPEC TYPE: Cytology DEPT: [facility] ENTERED BY: [id number] RECV BY: [id number] ORDERED: Cyto Int and Re, PAPSTN/7 ORDERED: Cyto Int and Re, PAPSTN/7 Pathological Diagnosis Left thyroid nodule, mid inferior, FNA cytology: -Adequate for assessment -Adequate number of the small but slightly dispersed follicular cells are present in the aspirate smears -Few tiny benign follicular groups are also noted in the ThinPrep smear -Overall findings are compatible with the Category 2 [place] system: Benign Clinical Information Left thyroid nodule Gross Description Received in Cytolyt labeled with the patient's name, date of and left thyroid nodule per requisition is < 1 ml very pale pink clear fixed fluid. 1 Thin Prep slides are prepared. 6 spray fixed smears to be stained pap are additionally received. (CC/nh) CPT Codes 42289 -------- -------- Specimen: [id number] Received: 01/15/24 Status: S[facility]OS [place] Num: [id number] Spec Type: Cytology Subm Dr: Enmanuel Donahue MD Tissues: A FNA SLIDES NOPATH (LT THYROID NOD) Procedures: Cyto Int and Re, PAPSTN/7 -------- Patient: Sarah Beth Griffiths [id number] (Continued) -------- Signed (signature on file) Joseph Montelongo MD 01/16/24 1746 Normal [facility] Claude 11-12-2023 L Specimen: Received: 11/16/23 Status: SANTOS Req Num: [id number] Spec Type: Cytology Subm Dr: Enmanuel Donahue MD Tissues: A FNA SLIDES NOPATH (LT NECK MASS POST) Procedures: HE/2, CDX2, NAPSIN A, TTF1, Cyto Int and Re, MOC31, PAPSTN/7 Age/ Patient Sex Location Account Attending Physician Sarah Beth Griffiths 53/F LABELL [id number] Enmanuel Donahue MD SPEC NUM: [id number] RECD: 11/16/23 STATUS: SANTOS REQ NUM: [id number] JAY: 11/12/23 DR: Enmanuel Donahue MD ENTERED: 11/16/[address] [facility] [address]: Itzel,Lab SPEC TYPE: Cytology DEPT: [facility] ENTERED BY: [id number] RECV BY: [id number] ORDERED: HE/2, CDX2, NAPSIN A, TTF1, Cyto [...] BC24 Received: 11/16/23 Status: S[facility]OS [place] Num: [id number] Spec Type: Cytology Subm Dr: Enmanuel Donahue MD Tissues: A FNA SLIDES NOPATH (LT NECK MASS POST) Procedures: HE/2, CDX2, NAPSIN A, TTF1, Cyto Int and Re, MOC31, PAPSTN/7 -------- Patient: Sarah Beth Griffiths [id number] (Continued) -------- Specimen: [id number] Received: 11/16/23 (Continued) Signed (signature on file) Margarita Montelongo MD 11/17/23 1633 -------- Specimen: [id number] Received: 11/16/23 Status: SANTOS [place] Num: [id number] Spec Type: Cytology Subm Dr: Enmanuel Donahue MD Tissues: A FNA SLIDES NOPATH (LT NECK MASS POST) Procedures: HE/2, CDX2, NAPSIN A, TTF1, Cyto Int and Re, MOC31, PAPSTN/7 -------- Patient: Sarah Beth Griffiths [id number] (Continued) -------- Specimen: [id number] Received: 11/16/23 (Continued) Gross Description Received in Cytolyt labeled with the patient's name, date of and left neck mass per requisition is <1 ml colorless clear fixed fluid. 1 Thin Prep slides are prepared. 1 cell blocks are prepared. 6 smears for pap are additionally received. (CC/hi) CPT Codes 02733, 68900u0, 49797j1, 73055m9 -------- -------- Specimen: [id number] Received: 11/16/23 Status: SANTOS [place] Num: [id number] Spec Type: Cytology Subm Dr: Enmanuel Donahue MD Tissues: A FNA SLIDES NOPATH (LT NECK MASS POST) Procedures: HE/2, CDX2, NAPSIN A, TTF1, Cyto Int and Re, MOC31, PAPSTN/7 -------- Patient: Sarah Beth Griffiths [id number] (Continued) -------- Signed (signature on file) Joseph Montelongo MD 11/17/23 1633 Normal [facility] MG MAMM SCREEN 3D THEODORE CADon 04-02-2022 MG MAMM SCREEN 3D THEODORE CAD Patient: SARAH BETH GRIFFITHS Exam Date: 04/02/2022 : 1970 Gender:F Ordering : DR STEPHANIE HUBBARD . Admission #: [id number] Family : Order #: [id number] CLICK HERE TO VIEW EXAM RADIOLOGY REPORT [...] breast cancer at age 68. LOCATION: [facility] BREAST COMPOSITION: Heterogeneously dense,which may obscure [...] M.D. on 04/03/2022 at 14:47 Normal [facility] Ferritinon 10-15-2018 Ferritin mass conc 46.9 ng/mL Normal 14.7-205.1 [facility] Comment on above: Performed By: #### R CBCDF #### [facility] [employer] [address] [address] Iron and TIBCon 10-15-2018 Iron mass conc 69 ug/dL Normal 41-186 [facility] Comment on above: Performed By: #### R CBCDF #### [facility] [employer] [address] [address] TIBC 366 ug/dL Normal 232-386 [facility] Comment on above: Performed By: #### R CBCDF #### [facility] [employer] [address] [phone] Transferrin Saturatn 19 % Normal 15-57 [facility] Comment on above: Performed By: #### R CBCDF #### [facility] [employer] [address] [phone] Remote Abs Gran + CBC (for F HC use only)on 10-15-2018 Absol Gran Count 6.30 k/uL Normal 1.45-7.50 [facility] Erythrocyte distribution width Ratio (RBC) 12.3 % Normal 11.5-15.0 [facility] Hematocrit Volume Fraction (Bld) 43.8 % Normal 36.0-46.0 [facility] Hemoglobin mass conc (Bld) 14.8 g/dL Normal 11.5-15.5 [facility] MCH Entitic mass (RBC) 30.7 pG Normal 26.0-34.0 [facility] MCHC mass conc (RBC) 33.8 g/dL Normal 30.5-36.0 [facility] MCV Entitic volume (RBC) 90.9 fL Normal 80.0-100.0 [facility] Platelet mean volume Entitic volume (Bld) 12.5 fL Normal 9.0-12.7 [facility] Platelets #/vol (Bld) 189 10*3/uL Normal 150-400 [facility] RBC #/vol (Bld) 4.82 10*6/uL Normal 3.90-5.20 [facility] WBC #/vol (Bld) 8.02 10*3/uL Normal 3.70-11.00 [facility] Ferritinon 08-24-2018 Ferritin mass conc 32.1 ng/mL Normal 14.7-205.1 [facility] Comment on above: Performed By: #### F ERR, IRON ####[facility] [place], [place] [phone] Iron and TIBCon 08-24-2018 Iron mass conc 75 ug/dL Normal 41-186 [facility] Comment on above: Performed By: #### F ERR, IRON ####[facility] [place], [place] [phone] TIBC 375 ug/dL Normal 232-386 [facility] Comment on above: Performed By: #### F ERR, IRON ####[facility] [address] [place], [place] [phone] Transferrin Saturatn 20 % Normal 15-57 [facility] Comment on above: Performed By: #### F ERR, IRON ####[place] [phone] Remote Abs Gran + CBC (for F HC use only)on 08-24-2018 Absol Gran Count 5.78 k/uL Normal 1.45-7.50 [facility] Comment on above: Performed By: #### R AGCBC ####[place] [phone] Comment WLY=310 Normal [facility] Comment on above: Result Comment: Samp le checked for a clot. Preliminary result. Interpret with caution. Final results may vary. Results requested and read back by: KAYCE/BELEM/Reinaldo/08/24/18/LATONYA Performed By: #### R AGCBC ####[place] [phone] Erythrocyte distribution width Ratio (RBC) 19.3 % High 11.5-15.0 [facility] Comment on above: Performed By: #### R AGCBC ####[place] [phone] Hematocrit Volume Fraction (Bld) 41.9 % Normal 36.0-46.0 [facility] Comment on above: Performed By: #### R AGCBC ####[place] [phone] Hemoglobin mass conc (Bld) 14.0 g/dL Normal 11.5-15.5 [facility] Comment on above: Performed By: #### R AGCBC ####[place] [phone] MCH Entitic mass (RBC) 28.8 pG Normal 26.0-34.0 [facility] Comment on above: Performed By: #### R AGCBC ####[place] [phone] MCHC mass conc (RBC) 33.4 g/dL Normal 30.5-36.0 [facility] Comment on above: Performed By: #### R AGCBC ####[address] [phone] MCV Entitic volume (RBC) 86.2 fL Normal 80.0-100.0 [facility] Comment on above: Performed By: #### R AGCBC ####[place] [phone] Platelets #/vol (Bld) 148 10*3/uL Low 150-400 [facility] Comment on above: Result Comment: Resu lt rechecked. No clot detected. Performed By: #### R AGCBC ####[address] [phone] RBC #/vol (Bld) 4.86 10*6/uL Normal 3.90-5.20 [facility] Comment on above: Performed By: #### R AGCBC ####[address] [phone] WBC #/vol (Bld) 7.56 10*3/uL Normal 3.70-11.00 [facility] Comment on above: Performed By: #### R AGCBC ####[place] [phone] CNOVSPon 07-16-2018 OVS Visit (SP) Office ([place]) SARAH BETH GRIFFITHS ([id number]) 1970 F Date Time Provider Department 07/16/18 9:45 AM SYLVIA CHIN During your visit today, we recorded the following information about you: Temperature Pulse Respiration Blood pressure 98 degrees 71/minute 18/minute 139/66 Weight Height 85.3 kg 1.63 m Sylvia Chin MD 07/16/2018 12:23 PM Signed HPI Sarah Beth Griffiths is a 48 year old female who presents in follow up. PEDIATRIC DENTAL HYGIENIST is working her up. She had IV [...] ICD10: D50.9 Lab work Defer management to PEDIATRIC DENTAL HYGIENIST See me in follow up - IRON + TIBC - FERRITIN BLD - ABS GRAN CT + CBC (FOR REMOTE [facility] USE) Sylvia Chin MD Referring Provider: PRIETO ST SR [[id number]] Allergies As of Date: 07/16/2018 Noted Allergy Reaction CODEINE 06/17/2018 16 - Unknown Date Reviewed: 07/16/2018 Reviewed by: Yadi Cisneros - Fully Assessed Reason for Visit: Anemia [6] Cmt: 4 week follow up Primary Visit Diagnosis:Vaginal bleeding [N93.9] Other Visit Diagnosis:Iron deficiency anemia, unspecified iron deficiency anemia type [D50.9] Order(s):IRON + TIBC [SQIRON] Order #: [id number] STANDING FERRITIN BLD [SQFERR] Order #: [id number] STANDING ABS GRAN CT + CBC (FOR REMOTE [facility] USE) [SQRAGCBC] Order #: [id number] STANDING Disposition: Return in about 6 months [...] by SYLVIA CHIN MD on 07/16/18 Normal [facility] PROGRESSon 07-16-2018 Protein mass conc HNO ID: [id number] Author: Sylvia Chin Service: (none) Author Type: Physician Type: Progress Notes Filed: 07/16/2018 12:23 PM Note Text: MARVEL Griffiths is a 48 year old female who presents in follow up. PEDIATRIC DENTAL HYGIENIST is working her up. She had IV [...] ICD10: D50.9 Lab work Defer management to PEDIATRIC DENTAL HYGIENIST See me in follow up - IRON + TIBC - FERRITIN BLD - ABS GRAN CT + CBC (FOR REMOTE [facility] USE) Sylvia Chin MD Normal [facility] Remote Abs Gran + CBC (for [facility] HC use only)on 07-16-2018 Absol Gran Count 5.67 k/uL Normal 1.45-7.50 [facility] Hematocrit Volume Fraction (Bld) 37.3 % Normal 36.0-46.0 [facility] Hemoglobin mass conc (Bld) 11.7 g/dL Normal 11.5-15.5 [facility] MCH Entitic mass (RBC) 25.9 pG Low 26.0-34.0 [facility] MCHC mass conc (RBC) 31.4 g/dL Normal 30.5-36.0 [facility] MCV Entitic volume (RBC) 82.5 fL Normal 80.0-100.0 [facility] Platelets #/vol (Bld) 187 10*3/uL Normal 150-400 [facility] Comment on above: Result Comment: Samp le checked for a clot. RBC #/vol (Bld) 4.52 10*6/uL Normal 3.90-5.20 [facility] WBC #/vol (Bld) 7.55 10*3/uL Normal 3.70-11.00 [facility] Remote Abs Gran + CBC (for F HC use only)on 06-28-2018 Absol Gran Count 6.82 k/uL Normal 1.45-7.50 [facility] Comment on above: Performed By: #### R AGCBC ####[facility] [address] [place], [place] [phone] Comment WBC=8.29/KLE=604 Normal [facility] Comment on above: Result Comment: Samp le checked for a clot. Preliminary result. Interpret with caution. Final results may vary. Results requested and read back by: AIDAN/[facility]/1156/06/28/18/LATONYA Performed By: #### R AGCBC ####[address] [place] [phone] Erythrocyte distribution width Ratio (RBC) 31.6 % High 11.5-15.0 [facility] Comment on above: Performed By: #### R AGCBC ####[address] [place] [phone] Hematocrit Volume Fraction (Bld) 36.5 % Normal 36.0-46.0 [facility] Comment on above: Performed By: #### R AGCBC ####[place] [phone] Hemoglobin mass conc (Bld) 10.9 g/dL Low 11.5-15.5 [facility] Comment on above: Performed By: #### R AGCBC ####[address] [place] [phone] MCH Entitic mass (RBC) 22.5 pG Low 26.0-34.0 [facility] Comment on above: Performed By: #### R AGCBC ####[place] [phone] MCHC mass conc (RBC) 29.9 g/dL Low 30.5-36.0 [facility] Comment on above: Performed By: #### R AGCBC ####[address] [place] [phone] MCV Entitic volume (RBC) 75.4 fL Low 80.0-100.0 [facility] Comment on above: Performed By: #### R AGCBC ####[address] [place] [phone] Platelets #/vol (Bld) 218 10*3/uL Normal 150-400 [facility] Comment on above: Result Comment: Resu lt checked and verified No clot detected. Performed By: #### R AGCBC ####[id number] [place], [place] [phone] RBC #/vol (Bld) 4.84 10*6/uL Normal 3.90-5.20 [facility] Comment on above: Performed By: #### R AGCBC ####[id number] [place], [place] [phone] WBC #/vol (Bld) 8.28 10*3/uL Normal 3.70-11.00 [facility] Comment on above: Result Comment: Resu lt checked and verified No clot detected. Performed By: #### R AGCBC ####[address] [phone] CNOVSPon 06-23-2018 CNOVS Visit (SP) Office ([place]) SARAH BETH GRIFFITHS ([id number]) 1970 F Date Time Provider Department 06/23/18 2:30 PM SYLVIA CHIN During your visit today, we recorded the following information about you: Temperature Pulse Respiration Blood pressure 98.2 degrees 87/minute 18/minute 124/48 Weight Height 84.7 kg 1.63 m Sylvia Chni MD 06/23/2018 2:58 PM Signed HPI Sarah Beth Griffiths is a 48 year old female who presents in follow up post injectafer and transfusion. She will see PEDIATRIC DENTAL HYGIENIST 07/08/18. I will plan on injectafer next [...] follow up She is set to see PEDIATRIC DENTAL HYGIENIST 07/08/18 My plan will be injectafer therapy for now to replenish iron stores - ABS GRAN CT + CBC (FOR REMOTE [facility] USE) 2. Vaginal bleeding - ICD9: 623.8, ICD10: N93.9 See above - ABS GRAN CT + CBC (FOR REMOTE [facility] USE) Sylvia Chin MD Referring Provider: PRIETO ST SR [[id number]] Allergies As of Date: 06/23/2018 Noted Allergy Reaction CODEINE 06/17/2018 16 - Unknown Date Reviewed: 06/23/2018 Reviewed by: Gita Escobar - Fully Assessed Reason for Visit: Iron deficiency anemia,unspecified [Other] Cmt: 5 day follow up Primary Visit Diagnosis:Iron deficiency anemia, unspecified iron deficiency anemia type [D50.9] Other Visit Diagnosis:Vaginal bleeding [N93.9] Order(s):ABS GRAN CT + CBC (FOR REMOTE [facility] USE) [facility] Order #: [id number] STANDING Disposition: Return in about 4 weeks [...] by SYLVIA CHIN MD on 06/23/18 Normal [facility] PROGRESSon 06-23-2018 Protein mass conc HNO ID: [id number] Author: Sylvia Chin Service: (none) Author Type: Physician Type: Progress Notes Filed: 06/23/2018 2:58 PM Note Text: MARVEL Sarah Beth Griffiths is a 48 year old female who presents in follow up post injectafer and transfusion. She will see PEDIATRIC DENTAL HYGIENIST 07/08/18. I will plan on injectafer next [...] follow up She is set to see PEDIATRIC DENTAL HYGIENIST 07/08/18 My plan will be injectafer therapy for now to replenish iron stores - ABS GRAN CT + CBC (FOR REMOTE [facility] USE) 2. Vaginal bleeding - ICD9: 623.8, ICD10: N93.9 See above - ABS GRAN CT + CBC (FOR REMOTE [facility] USE) Sylvia Chin MD Normal [facility] Remote CBCDIF (for [facility] use o nly)on 06-21-2018 Abs Baso 0.04 k/uL Normal <0.11 [facility] Comment on above: Performed By: #### R CBCDF #### [facility] [employer] [address] [place], [place] [address] Abs [place] 0.52 k/uL Normal <0.87 [facility] Comment on above: Performed By: #### R CBCDF #### [facility] [employer] [address] [place], [place] [address] Abs Neut 6.98 k/uL Normal 1.45-7.50 [facility] Comment on above: Performed By: #### R CBCDF #### [facility] [employer] [facility] [place], [place] [address] Basophils/100 WBC (Bld) 0.5 % Normal [facility] Comment on above: Performed By: #### R CBCDF #### [place] [address] Comment WBC=8.49.AGC=6.98/PL T =255 Normal [facility] Comment on above: Result Comment: Samp le checked for a clot. Preliminary result. Interpret with caution. Final results may vary. Results requested and read back by: AIDAN/BELEM/115206/21/18/LATONYA Performed By: #### R CBCDF #### [place] [address] Eosinophils #/vol (Bld) 0.15 10*3/uL Normal <0.46 [facility] Comment on above: Performed By: #### R CBCDF #### [place] [address] [place] [address] Eosinophils/100 WBC (Bld) 1.8 % Normal [facility] Comment on above: Performed By: #### R CBCDF #### [facility] [employer] [facility] [place], [place] [address] Erythrocyte distribution width Ratio (RBC) 25.6 % High 11.5-15.0 [facility] Comment on above: Performed By: #### R CBCDF #### [place] [place], [place] [address] Hematocrit Volume Fraction (Bld) 29.5 % Low 36.0-46.0 [facility] Comment on above: Performed By: #### R CBCDF #### [facility] [employer] [facility] [place], [place] [address] Hemoglobin mass conc (Bld) 8.8 g/dL Low 11.5-15.5 [facility] Comment on above: Performed By: #### R CBCDF #### [address] [address] Lymphocytes #/vol (Bld) 0.80 10*3/uL Low 1.00-4.00 [facility] Comment on above: Performed By: #### R CBCDF #### [place] [phone] Lymphocytes/100 WBC (Bld) 9.4 % Normal [facility] Comment on above: Performed By: #### R CBCDF #### [place] [address] MCH Entitic mass (RBC) 20.8 pG Low 26.0-34.0 [facility] Comment on above: Performed By: #### R CBCDF #### [place] [address] MCHC mass conc (RBC) 29.8 g/dL Low 30.5-36.0 [facility] Comment on above: Performed By: #### R CBCDF #### [address] [address] MCV Entitic volume (RBC) 69.6 fL Low 80.0-100.0 [facility] Comment on above: Performed By: #### R CBCDF #### [address] [address] Monocytes/100 WBC (Bld) 6.1 % Normal [facility] Comment on above: Performed By: #### R CBCDF #### [address] [address] Neutrophils/100 WBC (Bld) 82.2 % Normal [facility] Comment on above: Performed By: #### R CBCDF #### [address] [place], [place] [id number] Platelets #/vol (Bld) 255 10*3/uL Normal 150-400 [facility] Comment on above: Result Comment: No c lot detected. Performed By: #### R CBCDF #### [facility] [address] [place], [place] [address] RBC #/vol (Bld) 4.24 10*6/uL Normal 3.90-5.20 [facility] Comment on above: Performed By: #### R CBCDF #### [place] [id number] [place], [place] [address] WBC #/vol (Bld) 8.49 10*3/uL Normal 3.70-11.00 [facility] Comment on above: Result Comment: Resu lt rechecked. Performed By: #### R CBCDF #### [place] [id number] CNOVSPon 06-18-2018 CNOVSP Visit (SP) Office ([place]) SARAH BETH GRIFFITHS ([id number]) 1970 F Date Time Provider Department 06/18/18 [...] SKIN: Negative for lesions, rash, and itching. PEDIATRIC DENTAL HYGIENIST: heavy vaginal bleeding PSYCH: Negative for sleep [...] iron beginning next week 3. Refer to PEDIATRIC DENTAL HYGIENIST for intractable vaginal bleeding. DDX considered. She has had severe vaginal bleeding since March and will need to see immediate PEDIATRIC DENTAL HYGIENIST for workup and diagnosis. - VENTOLIN HFA [...] Chin MD Referring Provider: PRIETO ST SR [[id number]] Allergies As of Date: 06/18/2018 Noted Allergy Reaction CODEINE 06/17/2018 16 - Unknown Date Reviewed: 06/18/2018 Reviewed by: Yadi Cisneros - Fully Assessed Reason for Visit: low hemoglobin [Other] Cmt: new patient consult Primary Visit Diagnosis:Iron deficiency anemia, unspecified iron deficiency anemia type [D50.9] Other Visit Diagnosis:Vaginal bleeding [N93.9] Order(s):TRANSFUSION- BLOOD [5889385] Order #: [id number] CONSULT TO GYNECOLOGY [9013] Order #: [id number]: 1 Disposition: Return in about 5 days [...] by SYLVIA CHIN MD on 06/18/18 Normal [facility] Ferritinon 06-18-2018 Ferritin mass conc 7.5 ng/mL Low 14.7-205.1 [facility] Comment on above: Performed By: #### I YEE, B12, SERFOL, FERR, TSH, MMA #### [place] [address] [place] [phone] Folate, Serumon 06-18-2018 Folate mass conc 16.8 ng/mL Normal >4.7 [facility] Comment on above: Performed By: #### I YEE, B12, SERFOL, FERR, TSH, MMA #### [place] [address] [place] [phone] Iron and TIBCon 06-18-2018 Iron mass conc 14 ug/dL Low 41-186 [facility] Comment on above: Performed By: #### I YEE, B12, SERFOL, FERR, TSH, MMA #### [place] [address] [place] [phone] TIBC 486 ug/dL High 232-386 [facility] Comment on above: Performed By: #### I YEE, B12, SERFOL, FERR, TSH, MMA #### [place] [address] [place] [phone] Transferrin Saturatn 3 % Low 15-57 [facility] Comment on above: Performed By: #### I YEE, B12, SERFOL, FERR, TSH, MMA #### [place] [address] [place] [phone] Methylmalonic Acidon 018 Methylmalonic Acid 156 nmol/L Normal 79-376 [facility] Comment on above: Result Comment: This test was developed and its performance characteristics determined by [facility]'s Vikash Anguiano [facility] [place] ([facility]). It has not been cleared or approved by the FDA. [facility] is regulated under CLIA as qualified to perform high-complexity testing. This test is used for clinical purposes. It should not be regarded as investigational or for research. Performed By: #### I YEE, B12, SERFOL, FERR, TSH, MMA #### [facility] [address] [place], [place] [address] PROGRESSon 06-18-2018 Protein mass conc HNO ID: [id number] Author: Sylvia Chin Service: (none) Author Type: [...] SKIN: Negative for lesions, rash, and itching. PEDIATRIC DENTAL HYGIENIST: heavy vaginal bleeding PSYCH: Negative for sleep [...] iron beginning next week 3. Refer to PEDIATRIC DENTAL HYGIENIST for intractable vaginal bleeding. DDX considered. She has had severe vaginal bleeding since March and will need to see immediate PEDIATRIC DENTAL HYGIENIST for workup and diagnosis. - VENTOLIN HFA [...] CONSULT TO GYNECOLOGY Sylvia Chin MD Normal [facility] Remote CBCDIF (for [facility] use o nly)on 06-18-2018 Abs Baso 0.03 k/uL Normal 0.00-0.10 [facility] Comment on above: Performed By: #### R CBCDF #### [place] [phone] Abs [place] 0.63 k/uL Normal 0.00-0.86 [facility] Comment on above: Performed By: #### R CBCDF #### [place] [address] [place] [phone] Abs Neut 6.40 k/uL Normal 1.45-7.50 [facility] Comment on above: Performed By: #### R CBCDF #### [facility] [employer] [facility] [place] [phone] Basophils/100 WBC (Bld) 0.4 % Normal [facility] Comment on above: Performed By: #### R CBCDF #### [facility] [employer] [facility] [place] [phone] Comment IID=236 Normal [facility] Comment on above: Result Comment: Samp josy checked for a clot. Preliminary result. Interpret with caution. Final results may vary. Results requested and read back by: AIDAN/BELEM/945/9/LATONYA Performed By: #### R CBCDF #### [facility] [employer] [facility] [place] [address] Eosinophils #/vol (Bld) 0.14 10*3/uL Normal 0.00-0.45 [facility] Comment on above: Performed By: #### R CBCDF #### [place] [address] [place] [address] Eosinophils/100 WBC (Bld) 1.7 % Normal [facility] Comment on above: Performed By: #### R CBCDF #### [place] [address] Erythrocyte distribution width Ratio (RBC) 21.1 % High 11.5-15.0 [facility] Comment on above: Performed By: #### R CBCDF #### [place] [address] Hematocrit Volume Fraction (Bld) 21.8 % Low 36.0-46.0 [facility] Comment on above: Performed By: #### R CBCDF #### [place] [address] Hemoglobin mass conc (Bld) 6.0 g/dL Low 11.5-15.5 [facility] Comment on above: Performed By: #### R CBCDF #### [place] [phone] Lymphocytes #/vol (Bld) 1.05 10*3/uL Normal 1.00-4.00 [facility] Comment on above: Performed By: #### R CBCDF #### [place] [address] [place] [address] Lymphocytes/100 WBC (Bld) 12.7 % Normal [facility] Comment on above: Performed By: #### R CBCDF #### [place] [address] MCH Entitic mass (RBC) 18.1 pG Low 26.0-34.0 [facility] Comment on above: Performed By: #### R CBCDF #### [facility] [employer] [address] [place] [address] MCHC mass conc (RBC) 27.5 g/dL Low 30.5-36.0 [facility] Comment on above: Performed By: #### R CBCDF #### [place] [address] [place] [address] MCV Entitic volume (RBC) 65.7 fL Low 80.0-100.0 [facility] Comment on above: Performed By: #### R CBCDF #### [place] [address] [place] [phone] Monocytes/100 WBC (Bld) 7.6 % Normal [facility] Comment on above: Performed By: #### R CBCDF #### [place] [address] [place] [phone] Neutrophils/100 WBC (Bld) 77.6 % Normal [facility] Comment on above: Performed By: #### R CBCDF #### [place] [address] [place] [phone] Platelet mean volume Entitic volume (Bld) 11.0 fL Normal 9.0-12.7 [facility] Comment on above: Performed By: #### R CBCDF #### [place] [address] [place] [address] Platelets #/vol (Bld) 286 10*3/uL Normal 150-400 [facility] Comment on above: Result Comment: Resu lt checked and verified No clot detected. Performed By: #### R CBCDF #### [facility] [address] [place] [address] RBC #/vol (Bld) 3.32 10*6/uL Low 3.90-5.20 [facility] Comment on above: Performed By: #### R CBCDF #### [place] [phone] WBC #/vol (Bld) 8.25 10*3/uL Normal 3.70-11.00 [facility] Comment on above: Performed By: #### R CBCDF #### [facility] [address] [place] [address] TSHon 06-18-2018 Thyrotropin Qn 1.360 uU/mL Normal 0.400-5.500 [facility] Comment on above: Result Comment: If t he patient is , TSH reference range varies by gestational period: First Trimester 0.100-2.500 uU/mL Second Trimester 0.200-3.000 uU/mL Third Trimester 0.300-3.000 uU/mL References: 1. Logan L, Tommy M, Jason EK, et al. Management of Thyroid Dysfunction during and : An Endocrine Society Clinical Practice Guideline. J Clin Endocrinol Metab, 2012:97:3121-2899. 2. Chris ACEVEDO. Overview of thyroid disease in . UpToDate. 2016. Accessed on March 14, 2016. Performed By: #### I YEE, B12, SERFOL, FERR, TSH, MMA #### [facility] [address] [place] [address] Vitamin B12on 06-18-2018 Cobalamin (Vitamin B12) mass conc 378 pg/mL Normal 232-1245 [facility] Comment on above: Performed By: #### I YEE, B12, SERFOL, FERR, TSH, MMA #### [facility] [address] [place] [address] Encounters Encounter Date Encounter Type Care Provider Facility Start: 01-27-2024 End: 01-27-2024 ambulatory YE CHERY Not Available Start: 01-14-2024 End: 01-14-2024 ambulatory Enmanuel Donahue Facility:[facility] Start: 01-14-2024 End: 01-14-2024 ambulatory MD Stephanie Hubbard Work Phone: [facility] Work Phone: Start: 01-14-2024 End: 01-14-2024 Departed Referred MD Stephanie Hubbard Work Phone: [facility] Start: 01-06-2024 End: 01-06-2024 ambulatory YE CHERY Not Available Start: 11-12-2023 End: 11-12-2023 ambulatory Enmanuel Amaury Godfrey Facility:[facility] Start: 11-12-2023 End: 11-12-2023 ambulatory MD Stephanie Hubbard Work Phone: [facility] Work Phone: Start: 11-12-2023 End: 11-12-2023 Departed Referred MD Stephanie Hubbard Work Phone: [facility] Start: 05-28-[address] STEPHANIE HUBBARD Facility :[facility] Start: 04-02-2022 End: 04-03-[address] STEPHANIE HUBBARD Facility:[facility] Start: 03-25-[address] STEPHANIE HUBBARD Facility :[facility] Start: 10-17-[address] STEPHANIE HUBBARD Facility :[facility] Start: 10-15-2018 End: 10-15-2018 Patient encounter procedure SYLVIA CHIN [facility] Start: 10-13-2018 Patient encounter procedure SYLVIA CHIN [facility] Start: 08-24-2018 End: 08-24-2018 Patient encounter procedure SYLVIA CHIN [facility] Start: 07-16-2018 End: 07-19-2018 Patient encounter procedure SYLVIA CHIN [facility] Start: 06-28-2018 End: 06-28-2018 Patient encounter procedure SYLVIA CHIN [facility] Start: 06-28-2018 End: 06-29-2018 Patient encounter procedure SYLVIA CHIN [facility] Start: 06-23-2018 End: 06-24-2018 Patient encounter procedure SYLVIA CHIN [facility] Start: 06-21-2018 End: 06-22-2018 Patient encounter procedure SYLVIA CHIN [facility] Start: 06-18-2018 End: 06-21-2018 Patient encounter procedure SYLVIA CHIN [facility] Payers Date Payer Category Payer Self-pay [id number] 2023 Unknown [id number] 1970 Unknown [id number] 2.16.84 [id number] 1970 Unknown [id number] 2.16.84 [id number] 1970 Unknown [id number] 2.16.84 [id number] 1970 Unknown [id number] 2.16.84 [id number] 1970 Unknown [id number] 2.16.84 [id number] 1970 Unknown [id number] 2.16.84 [id number] 1961 Self-pay [id number] 1961 Unknown [id number] Unknown [employer]BS [id number] Unknown [id number] 2.16.8 [id number] Unknown [id number] 2.16.8 [id number] Social History Date Type Detail Facility Start: 04-23-2018 End: 04-23-2018 Tobacco smoking status LAIS Smoker (finding) [facility] Start: 1970 Sex Assigned At Female F [facility] Evaluation note Note Date & Type Note Facility Evaluation note No assessment information availa ble [facility] Work Phone: Summary Purpose Family History No Family History Records FoundNo Family History Records FoundNo Family History Records FoundNo Family History Records Found Advance Directives No Advanced Directives Records Found Advance Directive Response Recorded Date/ Time Advance Directives No May 7:47pm Advance Directive Response Recorded Date/ Time Advance Directives No May 8:47pm Additional Source Comments INFORMATION SOURCE (unrecogn ized section and content) DATE CREATED AUTHOR [facility]24/2018 [facility] DATE CREATED AUTHOR AUTHOR'S ORGANIZ ATION 05/26/2022 [facility] DATE CREATED AUTHOR AUTHOR'S ORGANIZ ATION 01/16/2024 [facility] DATE CREATED AUTHOR AUTHOR'S ORGANIZ ATION 01/28/2024 [facility] [employer] Care Teams (unrecognized sec tion and content) Team Status: Active Member Role Status Dates Stephanie Hubbard MD Primary Care Provider Active Team Status: Inactive Member Role Status Dates Stephanie Hubbard MD Primary Care Provider Active Start: November 12, 2023 End: November 12, 2023 Enmanuel Donauhe MD Attending Provider Active Start: November 12, 2023 End: November 12, 2023 Team Status: Inactive Member Role Status Dates Enmanuel Donahue MD Attending Provider Active Start: January 14, 2024 End: January 14, 2024 Goals (unrecognized section and content) Goals may be documented in a n alternate sectionGoals may be documented in an alternate section FOR RECORDS PERTAINING TO PATIENTS [...] BE BASED ON THE PRIMARY CLINICAL RECORDS. [employer] provides no warranty or guarantee of the accuracy or completeness of information in this document.
--- NOTE | 2024-02-24 13:27 | PM.PRESUREVA ---
History of Present Illness History of Present Illness Chief complaint: left posterior neck mass Narrative: Patient presents for preadmission testing. The patient states she was evaluated for a follow-up for a neck mass that she was watching, and it had grown in size, she underwent an ultrasound and biopsy and is now scheduled for mass removal. She states the mass is uncomfortable, no drainage, no neck pain, numbness, tingling, fever, or any other complaints. Review of Systems ROS Narrative REVIEW OF SYSTEMS: Negative except as stated in HPI, ten or more systems reviewed. Constitutional: No fever, chills, weakness ENT: No sore throat or epistaxis Cardiovascular: No chest pain, palpitations, or activity intolerance Respiratory: No cough; chronic shortness of breath and wheezing which is intermittent Musculoskeletal: No joint pain or swelling Gastrointestinal: No abdominal pain, constipation, diarrhea, or vomiting Genitourinary: No dysuria or hematuria Neurological: No numbness, tingling, weakness, or headache Psychiatric: No mood changes PFSH [facility] Medical History (Updated 02/24/24 @ 13:09 by Denia Randall NP) Varicose vein of leg ?I83.90 - Asymptomatic varicose veins of unspecified lower extremity (ICD-10) Neuropathy ?G62.9 - Polyneuropathy, unspecified (ICD-10) History of blood transfusion (2018) ?Z92.89 - Personal history of other medical treatment (ICD-10) COVID-19 ?U07.1 - COVID-19 (ICD-10) Kidney stones ?N20.0 - Calculus of kidney (ICD-10) Extremity edema ?R60.0 - Localized edema (ICD-10) Thyroid nodule ?E04.1 - Nontoxic single thyroid nodule (ICD-10) Iron deficiency anemia ?D50.9 - Iron deficiency anemia, unspecified (ICD-10) Iron deficiency ?E61.1 - Iron deficiency (ICD-10) Menometrorrhagia ?N92.1 - Excessive and frequent menstruation with irregular cycle (ICD-10) Chronic fatigue ?R53.82 - Chronic fatigue, unspecified (ICD-10) Dysmenorrhea ?N94.6 - Dysmenorrhea, unspecified (ICD-10) Abnormal uterine bleeding ?N93.9 - Abnormal uterine and vaginal bleeding, unspecified (ICD-10) Abnormal mammogram ?R92.8 - Other abnormal and inconclusive findings on diagnostic imaging of breast (ICD-10) Depression ?F32.A - Depression, unspecified (ICD-10) Anxiety ?F41.9 - Anxiety disorder, unspecified (ICD-10) Delayed recovery from anesthesia Neck mass ?R22.1 - Localized swelling, mass and lump, neck (ICD-10) Endometriosis ?N80.9 - Endometriosis, unspecified (ICD-10) Seasonal allergies ?J30.2 - Other seasonal allergic rhinitis (ICD-10) High cholesterol ?E78.00 - Pure hypercholesterolemia, unspecified (ICD-10) Diabetes ?E11.9 - Type 2 diabetes mellitus without complications (ICD-10) Depression with anxiety ?F41.8 - Other specified anxiety disorders (ICD-10) Ganglion cyst ?M67.40 - Ganglion, unspecified site (ICD-10) Mass of left side of neck ?R22.1 - Localized swelling, mass and lump, neck (ICD-10) Diabetic neuropathy ?E11.40 - Type 2 diabetes mellitus with diabetic neuropathy, unspecified (ICD-10) Asthma ?J45.909 - Unspecified asthma, uncomplicated (ICD-10) Surgical History (Updated 02/24/24 @ 13:09 by Denia Randall NP) History of breast biopsy ?Z98.890 - Other specified postprocedural states (ICD-10) History of laparoscopy ?Z98.890 - Other specified postprocedural states (ICD-10) H/O fine needle aspiration with imaging guidance ?Z98.890 - Other specified postprocedural states (ICD-10) History of exploratory laparotomy ?Z98.890 - Other specified postprocedural states (ICD-10) History of carpal tunnel release ?Z98.890 - Other specified postprocedural states (ICD-10) H/O: hysterectomy ?Z90.710 - Acquired absence of both cervix and uterus (ICD-10) History of appendectomy ?Z90.49 - Acquired absence of other specified parts of digestive tract (ICD-10) Family History (Updated 02/24/24 @ 13:09 by Denia Randall NP) Other Family history of breast cancer Family history of colon cancer Family history of diabetes mellitus Family history of kidney cancer Social History (Updated 02/24/24 @ 12:59 by Denia Randall, STRUCTURAL DESIGNER) Within the past year, how often did you have a drink containing alcohol: monthly or less Smoking status: Former smoker Non-prescribed substance use: denies use 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 - [employer] Highest level of school completed/degree received: high school graduate Meds Home Medications and Allergies Home Medications ?Medication ?Instructions ?Recorded ?Confirmed ?Type glimepiride 4 mg tablet 4 mg PO DAILY 10/13/23 02/24/24 History pioglitazone 30 mg tablet 30 mg PO DAILY 10/13/23 02/24/24 History semaglutide 0.25 mg or 0.5 mg (2 0.25 mg subcut QWEEK 10/13/23 02/24/24 History mg/3 mL) subcutaneous pen injector (Ozempic) simvastatin 20 mg tablet 20 mg PO DAILY 10/13/23 02/24/24 History albuterol sulfate 2.5 mg/3 mL 2.5 mg continuous nebulization Q6H 11/12/23 02/24/24 History (0.083 %) solution for nebulization PRN shortness of breath or wheezing albuterol sulfate 90 mcg/actuation 2 inh inhalation Q4H PRN shortness 11/12/23 02/24/24 History aerosol inhaler of breath or wheezing Vitamin C 1 tab PO DAILY 01/08/24 02/24/24 History loratadine 10 mg capsule 10 mg PO DAILY 01/08/24 02/24/24 History Allergies Allergy/AdvReac Type Severity Reaction Status Date / Time bee venom protein (honey bee) Allergy Unknown Verified 02/24/24 12:55 oxycodone Allergy somnolence Verified 02/24/24 13:24 codeine AdvReac nausea and Verified 02/24/24 12:55 vomiting Exam Narrative Exam Narrative: Constitutional: Awake, alert, comfortable, well-appearing, nontoxic, interactive, vital signs as charted Head: Normocephalic, atraumatic Neck: Supple, normal appearance, normal range of motion; Palpable, mobile, non-tender posterior neck mass just left of midline Respiratory: No respiratory distress, breath sounds clear Cardiovascular: Regular rate and rhythm, strong and regular heart tones Musculoskeletal: Normal gait, no swelling or edema Skin: No rashes or induration, no lesions, only visible skin inspected Neuro: No neurological deficits, normal sensation Psychiatric: Oriented ?3, normal affect Assessment and Plan Assessment and Plan (1) Neck mass: Plan Removal of posterior neck mass scheduled with Dr. Mulligan March 08 2024.
[2024-02-24 13:41] LABS: Basophils Percent Auto 0.3 % (0.2-2.0); Eosinophils Absolute Auto 0.2 10^3/uL (0.0-0.7); Eosinophils Percent Auto 2.8 % (0.9-7.0); Hematocrit 40.1 % (36.0-48.0); Immature Granulocytes Abs Auto 0.01 10^3/uL (0.00-0.03); Immature Granulocytes Pct Auto 0.2 % (0.0-0.5); Lymphocytes Absolute Auto 0.6 10^3/uL (1.2-3.8); Lymphocytes Percent Auto 9.5 % (20.5-60.0); Mean Corpuscular HGB Conc 32.4 g/dL (29.9-35.2); Mean Corpuscular Volume 92.6 fL (81.0-99.0); Mean Platelet Volume 12.4 fL (9.5-13.5); Monocytes Absolute Auto 0.6 10^3/uL (0.3-0.8); Monocytes Percent Auto 8.6 % (1.7-12.0); Neutrophils Absolute Auto 5.1 10^3/uL (1.4-6.5); Neutrophils Percent Auto 78.6 % (43.0-75.0); Platelet Count 157 10^3/uL (150-450); Red Blood Count 4.33 10^6/uL (4.20-5.40); White Blood Count 6.5 10^3/uL (4.0-11.0)
[2024-02-24 14:59] LABS: Carbon Dioxide 30.4 mmol/L (21.0-32.0); Chloride 104 mmol/L (98-107); Estimated GFR (African America >60 (>=60); Estimated GFR (Non-African Ame >60 (>=60); Glucose 124 mg/dL (74-106); Potassium 3.4 mmol/L (3.5-5.1); Sodium 140 mmol/L (136-145)
== END 2024-02-24 12:35 | disposition home or self-care (01) ==
LOC: PST 12:35
PROVIDERS: PCP Family Medicine; Visit Provider Otolaryngology
DX: Z01.810 Encounter for preprocedural cardiovascular examination (principal); Z01.812 Encounter for preprocedural laboratory examination; Z01.818 Encounter for other preprocedural examination; R22.1 Localized swelling, mass and lump, neck
CPT/HCPCS: 71046; 80048; 85025; 93005; G0463

== ENCOUNTER 2024-03-08 12:17 | Day surgery (SDC) | payer OTHER, SELFPAY ==
[2024-02-24 13:16] VITALS: BP 132/82; PULSE 77; TEMP 36.3; O2SAT 98; BMI 43.6
[2024-03-08] VITALS (12 sets, daily range): BP systolic 115–155; BP diastolic 57–101; PULSE 66–82; TEMP 36.1–36.2; O2SAT 95–99; BMI 43.4
--- NOTE | 2024-03-08 | OP_ITS ---
OPERATION DATE: 03/08/2024 PRIMARY CARE PHYSICIAN: Omid Hubbard M.D. SURGEON: Elvira Mulligan M.D. PREOPERATIVE DIAGNOSIS: Deep left neck mass. POSTOPERATIVE DIAGNOSIS: Deep left neck mass. PROCEDURE: Removal of deep left neck mass. ANESTHESIA: General endotracheal. COMPLICATIONS: None. FINDINGS: A 3.5 cm deep left neck mass consistent with a lipoma. INDICATIONS: This 53-year-old woman presented with a deep neck mass consistent with a lipoma. 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 PROCEDURE: Patient identified in the holding area and taken back to the OR where she was intubated in the hospital bed. She was then rotated into a prone position on the surgical table. The posterior neck was shaved and then it was prepped and draped in a sterile fashion. The mass was localized and then a 4 cm transverse incision was made overlying the mass. Dissection was carried out with electrocautery, through the subcutaneous fat and the deeper posterior neck. Clear distinction was visible between normal fat and the patient?s lipoma. Once this was accomplished, the skin and subcutaneous fat were retracted laterally, and blunt dissection and dissection with electrocautery was performed until the mass was removed in its entirety. Hemostasis was then achieved with electrocautery and bipolar cautery. The wound was then copiously irrigated and closed with two deep Vicryl layers and a running 4-0 nylon stitch. Antibiotic ointment was placed over the incision and a Telfa was placed and then a dressing placed over the Telfa. Patient was then awakened and taken to the recovery room in good condition. KATIE
[2024-03-08] MEDS: LACTATED RINGER'S SOLUTION 1,000 ML 50 ML IV (12:55)
[2024-03-08] MEDS: BACITRACIN OINTMENT 28.4 GM TUBE 1 APPLIC TOPICAL (13:56)
[2024-03-08] MEDS: BUPIVACAINE HCL 0.25% PF 25 MG/10 ML VIAL INJ (13:57)
[2024-03-08] MEDS: MEPERIDINE HCL/PF 25 MG/ML VIAL IVP (14:34)
== END 2024-03-08 15:40 | disposition home or self-care (01) ==
PROVIDERS: PCP Family Medicine; Visit Provider Otolaryngology
PROC: (CPT 300; principal; 2024-03-08 13:30)
DX: D17.0 Benign lipomatous neoplasm of skin and subcutaneous tissue of head, face and neck (principal); Z87.891 Personal history of nicotine dependence; E11.40 Type 2 diabetes mellitus with diabetic neuropathy, unspecified; Z79.84 Long term (current) use of oral hypoglycemic drugs; Z90.710 Acquired absence of both cervix and uterus; E78.5 Hyperlipidemia, unspecified
CPT/HCPCS: 21552; 36415; 88304; J0131; J0665; J1110; J1885; J2175; J2250; J2405; J2704; J3010

== ENCOUNTER 2025-07-14 10:01 | Outpatient (OUT) | payer OTHER, SELFPAY ==
--- OUTSIDE RECORDS SUMMARY | 2025-07-14 10:08 | XMS_ITS | CCD ---
Demographics Address [address] [place] [address] Preferred Language en Marital Status Congregational Affiliation Unknown Race White Ethnic Group Not or Lati no Author Organization [facility] Care Team Providers Care Wood Pattern Maker Name Role Phone ADELINANING, SYLVIA Chin Attending Unavailable HOUSE SR, PRIETO HIDLAGO Referring Unavai lable HOUSE SR, PRIETO HIDALGO [...] Unavailable MD Stephanie Hubbard Primary Care Provider [phone] MD Enmanuel Donahue Attending Provider MD Stephanie Hubbard Primary Care Provider [phone] MD Enmanuel Donahue Attending Provider [phone] MD Enmanuel Donahue Attending Provider [phone] MD Elvira Chery Jr Attending Provider Enmanuel Sutherland Admitting Unavailable Enmanuel Donahue Attending Unavailable Stephanie Hubbard Primary Care Unavailable Enmanuel Donahue Admitting Unavailable Enmanuel Donahue Attending Unavailable Elvira Chery Jr Attending Unavailable Elvira Chery Jr Admitting Unavailable ELVIRA CHERY Attending Unavailable STEPHANIE HUBBARD Referring Unavailable ELVIRA CHERY Attending Unavailable ELVIRA CHERY Attending Unavailable Allergies Allergy Classification Reported Allergen(s) Allergy Type Date of Onset Reaction(s) Facility (6 sources) Codeine; Translations: [CODEINE] Drug Allergy 04-23-20 18 Gastrointestinal Upset [facility] Repository (1 source) bee venom Drug allergy (disorder) [facility] Repository (1 source) Grass pollen Drug allergy (disorder) [facility] Repository (1 source) house dust allergenic extract Drug Allergy [facility] Repository (1 source) Mold Extract Drug Allergy [facility] Repository (1 source) Penicillin Drug Allergy [facility] Repository (1 source) Ragweed Drug allergy (disorder) [facility] Repository (4 sources) Penicillins; Translations: [Penicillins] Allergy to substance 12-21-19 19 [facility] Medications Current Medications Medication Drug Class(es) Dates Sig (Normalized) Sig (Original) acetaminophen 500 mg / caffeine 60 mg / pyrilamine maleate 15 mg oral tablet (3 sources) Central Nervous System Stimulant, Methylxanthine Start: 12-20-2018 take 2 tablets by mouth every four to six hours Acetaminophen-Ca ff-Pyrilamine (Midol Max St Menstrual) 500-60-15 mg Tablet Active 2 TAB PO EVERY 4-6 HOURS December 20, 2018 12:00am albuterol 0.21 mg/ml inhalation solution (6 sources) beta2-Adrenergic Agonist Start: 06-01-2017 Albuterol Sulfate [...] / HYDROcodone bitartrate 5 mg oral tablet (3 sources) Opioid Agonist Start: 06-04-2017 End: 04-23-2018 take 1 tablet by mouth every four hours Hydrocodone-Acetam inophen (Calvin) 5-325 mg tablet Discontinued 1 TAB PO Q4H June 04, 2017 April 23, 2018 4:42am acetaminophen 325 mg / oxyCODONE hydrochloride 5 mg oral tablet (3 sources) Opioid Agonist Start: 04-23-2018 End: 12-20-2018 take 2 tablets by mouth every four hours Oxycodone-Acetamin ophen (Percocet) 5-325 mg tablet Discontinued 2 TAB PO Q4H April 23, 2018 December 20, 2018 4:00pm ibuprofen 800 mg oral tablet (3 sources) Nonsteroidal Anti-inflammatory Drug Start: 06-01-2017 End: 04-23-2018 take 800 mg by mouth three times daily Ibuprofen Discontinued 800 MG PO Three times daily June 01, 2017 12:00am April 23, 2018 4:42am ondansetron 8 mg disintegrating oral tablet (3 sources) Serotonin-3 Receptor Antagonist Start: 04-23-2018 End: 04-28-2018 take 1 tablet by mouth every eight hours Ondansetron (Zofran Odt) 8 mg tablet,disintegrat ing Discontinued 8 MG PO Q8H 10 April 23, 2018 12:00am April 28, 2018 12:02am Problems Active Problems Problem Classification Problem Date Documented Da te Episodic/Chronic Other female genital disorders (1 source) Abnormal uterine and vaginal bleeding, unspecified; Translations: [Abnormal uterine and vaginal bleeding, unspecified] Onset: 06-18-2018 Chronic Other injuries and conditions due to external causes (3 sources) Contusion; Translations: [Other injury of unspecified [...] BREAST] Onset: 04-07-2022 Episodic Superficial injury; contusion (3 sources) Contusion of head; Translations: [Contusion of [...] Value Interpretation Reference Range Facil ity Claude 03-08-2024 L Specimen: [id number] Received: 03/09/24 Status: SANTOS [place] Num: [id number] Spec Type: Surgical Subm Dr: ELVIRA CHERY MD Tissues: A Soft Tissue/Surgical Margin-Other than Tumor,Mass,Lip or [place] (LT POSTERIOR N Procedures: HE/3, Gross/Micro L4 Age/ Patient Sex Location Account Attending Physician Sarah Beth Griffiths 53/F [place] [id number] ELVIRA CHERY MD SPEC NUM: [id number] RECD: 03/09/24 STATUS: SANTOS [place] NUM: [id number] JAY: 03/08/[address]: ELVIRA CHERY MD ENTERED: 03/09/24 [facility] DR: Cisco Robbins SPEC TYPE: Surgical DEPT: [facility] SCHULER ORDERED: HE/3, Gross/Micro L4 ORDERED: HE/3, Gross/Micro L4 Pathological Diagnosis Mass, left posterior neck, excision: Mature fibrofatty tissue, consistent with lipoma. Clinical Information Neck mass Gross Description Received in formalin labeled with the patient's name, date of and left posterior neck mass is a 3.5 x 2.6 x 1.2 cm portion of yellow lobulated adipose tissue. The specimen is inked orange and serially sectioned revealing unremarkable and lobulated cut surfaces. No areas of abnormality or necrosis are identified. Regulatory Lead sections are submitted in A1. CPT Codes 31289 -------- -------- Specimen: [id number] Received: 03/09/24 Status: SANTOS [place] Num: [id number] Spec Type: Surgical Subm Dr: ELVIRA CHERY MD Tissues: A Soft Tissue/Surgical Margin-Other than Tumor,Mass,Lip or [place] (LT POSTERIOR N Procedures: HE/3, Gross/Micro L4 -------- Patient: Sarah Beth Griffiths [id number] (Continued) -------- Signed (signature on file) Deja Laws MD 03/10/241806 Normal [facility] Claude 01-14-2024 L Specimen: Received: 01/15/24 Status: SOUEneida Req Num: [id number] Spec Type: Cytology Subm Dr: Enmanuel Donahue MD Tissues: A FNA SLIDES NOPATH (LT THYROID NOD) Procedures: Cyto Int and Re, PAPSTN/7 Age/ Patient Sex Location Account Attending Physician GriffithsSarah Beth José Manuel 53/F [place] [id number] Enmanuel Donahue MD SPEC NUM: [id number] RECD: 01/15/24 STATUS: SANTOS [place] NUM: [id number] JAY: 01/14/24- SUBM DR: Enmanuel Donahue MD ENTERED: 01/15/24 [facility] DR: Itzel,Lab SPEC TYPE: Cytology DEPT: [facility] ENTERED BY: [id number] RECV BY: [id number] ORDERED: Cyto Int and Re, PAPSTN/7 ORDERED: Cyto Int and Re, PAPSTN/7 Pathological Diagnosis Left thyroid nodule, mid inferior, FNA cytology: -Adequate for assessment -Adequate number of the small but slightly dispersed follicular cells are present in the aspirate smears -Few tiny benign follicular groups are also noted in the ThinPrep smear -Overall findings are compatible with the Category 2 [place] system: Benign Clinical Information Left thyroid nodule Gross Description Received in Cytolyt labeled with the patient's name, date of and left thyroid nodule per requisition is < 1 ml very pale pink clear fixed fluid. 1 Thin Prep slides are prepared. 6 spray fixed smears to be stained pap are additionally received. (CC/nh) CPT Codes 40254 -------- -------- Specimen: [id number] Received: 01/15/24 Status: SANTOS [place] Num: [id number] Spec Type: Cytology Subm Dr: Enmanuel Donahue MD Tissues: A FNA SLIDES NOPATH (LT THYROID NOD) Procedures: Cyto Int and Re, PAPSTN/7 -------- Patient: Sarah Beth Griffiths José Manuel [id number] (Continued) -------- Signed (signature on file) Joseph Montelongo MD 01/16/241745 Normal [facility] Claude 11-12-2023 L Specimen: [id number] Received: 11/16/23 Status: SANTOS [place] Num: [id number] Spec Type: Cytology Subm Dr: Enmanuel Donahue MD Tissues: A FNA SLIDES NOPATH (LT NECK MASS POST) Procedures: HE/2, CDX2, NAPSIN A, TTF1, Cyto Int and Re, MOC31, PAPSTN/7 Age/ Patient Sex Location Account Attending Physician Sarah Beth Griffiths 53/F [place] [id number] Enmanuel Donahue MD SPEC NUM: RECD: 11/16/23 STATUS: SANTOS [place] NUM: [id number] JAY: 11/12/23- DR: Enmanuel Donahue MD ENTERED: 11/16/23 [facility] DR: Itzel,Lab SPEC TYPE: Cytology DEPT: [facility] ENTERED BY: [id number] RECV BY: [id number] ORDERED: HE/2, CDX2, NAPSIN A, TTF1, Cyto [...] for further assessment as appropriate -------- Specimen: Received: 11/16/23 Status: SANTOS [place] Num: [id number] Spec Type: Cytology Subm Dr: Enmanuel Donahue MD Tissues: A FNA SLIDES NOPATH (LT NECK MASS POST) Procedures: HE/2, CDX2, NAPSIN A, TTF1, Cyto Int and Re, MOC31, PAPSTN/7 -------- Patient: Sarah Beth Griffiths [id number] (Continued) -------- Specimen: [id number] Received: 11/16/23 (Continued) Signed (signature on file) Joseph Montelongo MD 11/17/23 1633 -------- Specimen: [id number] Received: 11/16/23 Status: SANTOS [place] Num: [id number] Spec Type: Cytology Subm Dr: Enmanuel Donahue MD Tissues: A FNA SLIDES MARKATH (LT NECK MASS POST) Procedures: HE/2, CDX2, NAPSIN A, TTF1, Cyto Int and Re, MOC31, PAPSTN/7 -------- Patient: Sarah Beth Griffiths [id number] (Continued) -------- Specimen: [id number] Received: 11/16/23 (Continued) Gross Description Received in Cytolyt labeled with the patient's name, date of and left neck mass per requisition is <1 ml colorless clear fixed fluid. 1 Thin Prep slides are prepared. 1 cell blocks are prepared. 6 smears for pap are additionally received. (CC/nh) CPT Codes 69323, 91793k0, 95880c9, 76828e8 -------- -------- Specimen: [id number] Received: 11/16/23 Status: SANTOS [place] Num: [id number] Spec Type: Cytology Subm Dr: Enmanuel Donahue MD Tissues: A FNA SLIDES NOPATH (LT NECK MASS POST) Procedures: HE/2, CDX2, NAPSIN A, TTF1, Cyto Int and Re, MOC31, PAPSTN/7 -------- Patient: Sarah Beth Griffiths [id number] (Continued) -------- Signed (signature on file) David-Scot Montelongo MD 11/17/23 1633 Normal [facility] MG MAMM SCREEN 3D THEODORE CADon 04-02-2022 MG MAMM SCREEN 3D THEODORE CAD Patient: SARAH BETH GRIFFITHS. Exam Date: 04/02/2022 : 1970 Gender:F Ordering : DR STEPHANIE HUBBARD . Admission #: [id number] Family : Order #: [id number] CLICK HERE TO VIEW EXAM RADIOLOGY REPORT [...] breast cancer at age 68. LOCATION: [facility] BREAST COMPOSITION: Heterogeneously dense,which may [...] Donahue M.D. on 04/03/2022 at 14:47 Normal [facility] Ferritinon 10-15-2018 Ferritin mass conc 46.9 ng/mL Normal 14.7-205.1 [facility] Comment on above: Performed By: #### R CBCDF #### [place] [phone] [place] [address] Iron and TIBCon 10-15-2018 Iron mass conc 69 ug/dL Normal 41-186 [facility] Comment on above: Performed By: #### R CBCDF #### [place] [address] [place] [address] TIBC 366 ug/dL Normal 232-386 [facility] Comment on above: Performed By: #### R CBCDF #### [place] [address] [place] [phone] Transferrin Saturatn 19 % Normal 15-57 [facility] Comment on above: Performed By: #### R CBCDF #### [place] [address] [place] [phone] Remote Abs Gran + CBC (for F HC use only)on 10-15-2018 Absol Gran Count 6.30 k/uL Normal 1.45-7.50 [facility] Erythrocyte distribution width Ratio (RBC) 12.3 % Normal 11.5-15.0 [facility] Hematocrit Volume Fraction (Bld) 43.8 % Normal 36.0-46.0 [facility] Hemoglobin mass conc (Bld) 14.8 g/dL Normal 11.5-15.5 [facility] MCH Entitic mass (RBC) 30.7 pG Normal 26.0-34.0 [facility] MCHC mass conc (RBC) 33.8 g/dL Normal 30.5-36.0 [facility] MCV Entitic volume (RBC) 90.9 fL Normal 80.0-100.0 [facility] Platelet mean volume Entitic volume (Bld) 12.5 fL Normal 9.0-12.7 [facility] Platelets #/vol (Bld) 189 10*3/uL Normal 150-400 [facility] RBC #/vol (Bld) 4.82 10*6/uL Normal 3.90-5.20 [facility] WBC #/vol (Bld) 8.02 10*3/uL Normal 3.70-11.00 [facility] Ferritinon 08-24-2018 Ferritin mass conc 32.1 ng/mL Normal 14.7-205.1 [facility] Comment on above: Performed By: #### F ERR, IRON ####[address] [place], [place] [phone] Iron and TIBCon 08-24-2018 Iron mass conc 75 ug/dL Normal 41-186 [facility] Comment on above: Performed By: #### F ERR, IRON ####[address] [place], [place] [phone] TIBC 375 ug/dL Normal 232-386 [facility] Comment on above: Performed By: #### F ERR, IRON ####[address] [place], [place] [phone] Transferrin Saturatn 20 % Normal 15-57 [facility] Comment on above: Performed By: #### F ERR, IRON ####[place] [phone] [place], [place] [phone] Remote Abs Gran + CBC (for F HC use only)on 08-24-2018 Absol Gran Count 5.78 k/uL Normal 1.45-7.50 [facility] Comment on above: Performed By: #### R AGCBC ####[place] [phone] Comment EWF=240 Normal [facility] Comment on above: Result Comment: Gregoria ferris checked for a clot. Preliminary result. Interpret with caution. Final results may vary. Results requested and read back by: KAYCE/BELEM/Reinaldo/08/24/18/LATONYA Performed By: #### R AGCBC ####[place] [phone] Erythrocyte distribution width Ratio (RBC) 19.3 % High 11.5-15.0 [facility] Comment on above: Performed By: #### R AGCBC ####[place] [phone] Hematocrit Volume Fraction (Bld) 41.9 % Normal 36.0-46.0 [facility] Comment on above: Performed By: #### R AGCBC ####[place] [phone] Hemoglobin mass conc (Bld) 14.0 g/dL Normal 11.5-15.5 [facility] Comment on above: Performed By: #### R AGCBC ####[place] [phone] MCH Entitic mass (RBC) 28.8 pG Normal 26.0-34.0 [facility] Comment on above: Performed By: #### R AGCBC ####[place] [phone] MCHC mass conc (RBC) 33.4 g/dL Normal 30.5-36.0 [facility] Comment on above: Performed By: #### R AGCBC ####[place] [phone] MCV Entitic volume (RBC) 86.2 fL Normal 80.0-100.0 [facility] Comment on above: Performed By: #### R AGCBC ####[address] [phone] Platelets #/vol (Bld) 148 10*3/uL Low 150-400 [facility] Comment on above: Result Comment: Resu lt rechecked. No clot detected. Performed By: #### R AGCBC ####[address] [place], [place] [phone] RBC #/vol (Bld) 4.86 10*6/uL Normal 3.90-5.20 [facility] Comment on above: Performed By: #### R AGCBC ####[address] [place], [place] [phone] WBC #/vol (Bld) 7.56 10*3/uL Normal 3.70-11.00 [facility] Comment on above: Performed By: #### R AGCBC ####[address] [phone] CNOVSPon 07-16-2018 OVS Visit (SP) Office ([place]) SARAH BETH GRIFFITHS ([id number]) 1970 F Date Time Provider Department 07/16/18 9:45 AM SYLVIA CHIN During your visit today, we recorded the following information about you: Temperature Pulse Respiration Blood pressure 98 degrees 71/minute 18/minute 139/66 Weight Height 85.3 kg 1.63 m Sylvia Chin MD 07/16/2018 12:23 PM Signed HPI Sarah Beth Griffiths is a 48 year old female who presents in follow up. MARINE FIREMAN is working her up. She had IV [...] ICD10: D50.9 Lab work Defer management to MARINE FIREMAN See me in follow up - IRON + TIBC - FERRITIN BLD - ABS GRAN CT + CBC (FOR REMOTE [facility] USE) Sylvia Chin MD Referring Provider: PRIETO ST SR [[id number]] Allergies As of Date: 07/16/2018 Noted Allergy Reaction CODEINE 06/17/2018 16 - Unknown Date Reviewed: 07/16/2018 Reviewed by: Yadi Cisneros - Fully Assessed Reason for Visit: Anemia [6] Cmt: 4 week follow up Primary Visit Diagnosis:Vaginal bleeding [N93.9] Other Visit Diagnosis:Iron deficiency anemia, unspecified iron deficiency anemia type [D50.9] Order(s):IRON + TIBC [SQIRON] Order #: [id number] STANDING FERRITIN BLD [SQFERR] Order #: [id number] STANDING ABS GRAN CT + CBC (FOR REMOTE [facility] USE) [SQRAGCBC] Order #: [id number] STANDING Disposition: Return in about 6 months [...] by SYLVIA CHIN MD on 07/16/18 Normal [facility] PROGRESSon 07-16-2018 Protein mass conc HNO ID: [id number] Author: Sylvia Chin Service: (none) Author Type: Physician Type: Progress Notes Filed: 07/16/2018 12:23 PM Note Text: HPI Sarah Beth Griffiths is a 48 year old female who presents in follow up. MARINE FIREMAN is working her up. She had IV [...] ICD10: D50.9 Lab work Defer management to MARINE FIREMAN See me in follow up - IRON + TIBC - FERRITIN BLD - ABS GRAN CT + CBC (FOR REMOTE [facility] USE) Sylvia Chin MD Normal [facility] Remote Abs Gran + CBC (for F HC use only)on 07-16-2018 Absol Gran Count 5.67 k/uL Normal 1.45-7.50 [facility] Hematocrit Volume Fraction (Bld) 37.3 % Normal 36.0-46.0 [facility] Hemoglobin mass conc (Bld) 11.7 g/dL Normal 11.5-15.5 [facility] MCH Entitic mass (RBC) 25.9 pG Low 26.0-34.0 [facility] MCHC mass conc (RBC) 31.4 g/dL Normal 30.5-36.0 [facility] MCV Entitic volume (RBC) 82.5 fL Normal 80.0-100.0 [facility] Platelets #/vol (Bld) 187 10*3/uL Normal 150-400 [facility] Comment on above: Result Comment: Gregoria ferris checked for a clot. RBC #/vol (Bld) 4.52 10*6/uL Normal 3.90-5.20 [facility] WBC #/vol (Bld) 7.55 10*3/uL Normal 3.70-11.00 [facility] Remote Abs Gran + CBC (for [facility] use only)on 06-28-2018 Absol Gran Count 6.82 k/uL Normal 1.45-7.50 [facility] Comment on above: Performed By: #### R AGCBC ####[facility] [place], [place] [phone] Comment WBC=8.29/JEA=168 Normal [facility] Comment on above: Result Comment: Samrasta le checked for a clot. Preliminary result. Interpret with caution. Final results may vary. Results requested and read back by: AIDAN/BELEM/1156/06/28/18/LATONYA Performed By: #### R AGCBC ####[place] [id number] [place], [place] [phone] Erythrocyte distribution width Ratio (RBC) 31.6 % High 11.5-15.0 [facility] Comment on above: Performed By: #### R AGCBC ####[place] [phone] Hematocrit Volume Fraction (Bld) 36.5 % Normal 36.0-46.0 [facility] Comment on above: Performed By: #### R AGCBC ####[place] [phone] Hemoglobin mass conc (Bld) 10.9 g/dL Low 11.5-15.5 [facility] Comment on above: Performed By: #### R AGCBC ####[place] [phone] MCH Entitic mass (RBC) 22.5 pG Low 26.0-34.0 [facility] Comment on above: Performed By: #### R AGCBC ####[place] [phone] MCHC mass conc (RBC) 29.9 g/dL Low 30.5-36.0 [facility] Comment on above: Performed By: #### R AGCBC ####[place] [phone] MCV Entitic volume (RBC) 75.4 fL Low 80.0-100.0 [facility] Comment on above: Performed By: #### R AGCBC ####[place] [phone] Platelets #/vol (Bld) 218 10*3/uL Normal 150-400 [facility] Comment on above: Result Comment: Resu lt checked and verified No clot detected. Performed By: #### R AGCBC ####[place] [phone] RBC #/vol (Bld) 4.84 10*6/uL Normal 3.90-5.20 [facility] Comment on above: Performed By: #### R AGCBC ####[facility] [address] [place], [place] [phone] WBC #/vol (Bld) 8.28 10*3/uL Normal 3.70-11.00 [facility] Comment on above: Result Comment: Resu lt checked and verified No clot detected. Performed By: #### R AGCBC ####[facility] [address] [place], [place] [phone] CNOVSPon 06-23-2018 CNOVSP Visit (SP) Office (HEMASA) SARAH BETH GRIFFITHS ([id number]) 1970 F Date Time Provider Department 06/23/18 [...] post injectafer and transfusion. She will see MARINE FIREMAN 07/08/18. I will plan on injectafer next [...] follow up She is set to see MARINE FIREMAN 07/08/18 My plan will be injectafer therapy for now to replenish iron stores - ABS GRAN CT + CBC (FOR REMOTE [facility] USE) 2. Vaginal bleeding - ICD9: 623.8, ICD10: N93.9 See above - ABS GRAN CT + CBC (FOR REMOTE [facility] USE) Sylvia Chin MD Referring Provider: PRIETO ST SR [[id number]] Allergies As of Date: 06/23/2018 Noted Allergy Reaction CODEINE 06/17/2018 16 - Unknown Date Reviewed: 06/23/2018 Reviewed by: Gita Escobar - Fully Assessed Reason for Visit: Iron deficiency anemia,unspecified [Other] Cmt: 5 day follow up Primary Visit Diagnosis:Iron deficiency anemia, unspecified iron deficiency anemia type [D50.9] Other Visit Diagnosis:Vaginal bleeding [N93.9] Order(s):ABS GRAN CT + CBC (FOR REMOTE [facility] USE) [SQRAGCBC] Order #: [id number] STANDING Disposition: Return in about 4 weeks [...] by SYLVIA CHIN MD on 06/23/18 Normal [facility] PROGRESSon 06-23-2018 Protein mass conc HNO ID: [id number] Author: Sylvia Chin Service: (none) Author Type: Physician Type: Progress Notes Filed: 06/23/2018 2:58 PM Note Text: MARVEL Sarah Beth Griffiths is a 48 year old female who presents in follow up post injectafer and transfusion. She will see MARINE FIREMAN 07/08/18. I will plan on injectafer next [...] follow up She is set to see MARINE FIREMAN 07/08/18 My plan will be injectafer therapy for now to replenish iron stores - ABS GRAN CT + CBC (FOR REMOTE [facility] USE) 2. Vaginal bleeding - ICD9: 623.8, ICD10: N93.9 See above - ABS GRAN CT + CBC (FOR REMOTE [facility] USE) Sylvia Chin MD Normal [facility] Remote CBCDIF (for [facility] use o nly)on 06-21-2018 Abs Baso 0.04 k/uL Normal <0.11 [facility] Comment on above: Performed By: #### R CBCDF #### [facility] [address] [place], [place] [address] Abs [place] 0.52 k/uL Normal <0.87 [facility] Comment on above: Performed By: #### R CBCDF #### [facility] [address] [place], [place] [address] Abs Neut 6.98 k/uL Normal 1.45-7.50 [facility] Comment on above: Performed By: #### R CBCDF #### [facility] [address] [place], [place] [address] Basophils/100 WBC (Bld) 0.5 % Normal [facility] Comment on above: Performed By: #### R CBCDF #### [facility] [place], [place] [address] Comment WBC=8.49.AGC=6.98/PL T =255 Normal [facility] Comment on above: Result Comment: Samp le checked for a clot. Preliminary result. Interpret with caution. Final results may vary. Results requested and read back by: AIDAN/BELEM/1152/06/21/18/LATONYA Performed By: #### R CBCDF #### [facility] [address] [place] [address] Eosinophils #/vol (Bld) 0.15 10*3/uL Normal <0.46 [facility] Comment on above: Performed By: #### R CBCDF #### [address] [address] Eosinophils/100 WBC (Bld) 1.8 % Normal [facility] Comment on above: Performed By: #### R CBCDF #### [facility] [address] [place] [address] Erythrocyte distribution width Ratio (RBC) 25.6 % High 11.5-15.0 [facility] Comment on above: Performed By: #### R CBCDF #### [facility] [address] [place] [address] Hematocrit Volume Fraction (Bld) 29.5 % Low 36.0-46.0 [facility] Comment on above: Performed By: #### R CBCDF #### [facility] [address] [place] [address] Hemoglobin mass conc (Bld) 8.8 g/dL Low 11.5-15.5 [facility] Comment on above: Performed By: #### R CBCDF #### [facility] [address] [place] [address] Lymphocytes #/vol (Bld) 0.80 10*3/uL Low 1.00-4.00 [facility] Comment on above: Performed By: #### R CBCDF #### [place] [id number] [place] [address] Lymphocytes/100 WBC (Bld) 9.4 % Normal [facility] Comment on above: Performed By: #### R CBCDF #### [place] [address] MCH Entitic mass (RBC) 20.8 pG Low 26.0-34.0 [facility] Comment on above: Performed By: #### R CBCDF #### [place] [address] MCHC mass conc (RBC) 29.8 g/dL Low 30.5-36.0 [facility] Comment on above: Performed By: #### R CBCDF #### [place] [address] MCV Entitic volume (RBC) 69.6 fL Low 80.0-100.0 [facility] Comment on above: Performed By: #### R CBCDF #### [place] [address] Monocytes/100 WBC (Bld) 6.1 % Normal [facility] Comment on above: Performed By: #### R CBCDF #### [place] [id number] [place] [address] Neutrophils/100 WBC (Bld) 82.2 % Normal [facility] Comment on above: Performed By: #### R CBCDF #### [place] [id number] [place] [address] Platelets #/vol (Bld) 255 10*3/uL Normal 150-400 [facility] Comment on above: Result Comment: No c lot detected. Performed By: #### R CBCDF #### [place] [id number] RBC #/vol (Bld) 4.24 10*6/uL Normal 3.90-5.20 [facility] Comment on above: Performed By: #### R CBCDF #### [facility] [address] [place], [place] [address] WBC #/vol (Bld) 8.49 10*3/uL Normal 3.70-11.00 [facility] Comment on above: Result Comment: Resu lt rechecked. Performed By: #### R CBCDF #### [facility] [address] [place], [place] [address] CNOVSPon 06-18-2018 CNOVSP Visit (SP) Office ([place]) SARAH BETH GRIFFITHS ([id number]) 1970 F Date Time Provider Department 06/18/18 [...] SKIN: Negative for lesions, rash, and itching. MARINE FIREMAN: heavy vaginal bleeding PSYCH: Negative for sleep [...] iron beginning next week 3. Refer to MARINE FIREMAN for intractable vaginal bleeding. DDX considered. She has had severe vaginal bleeding since March and will need to see immediate MARINE FIREMAN for workup and diagnosis. - VENTOLIN HFA [...] Chin MD Referring Provider: PRIETO ST SR [[id number]] Allergies As of Date: 06/18/2018 Noted Allergy Reaction CODEINE 06/17/2018 16 - Unknown Date Reviewed: 06/18/2018 Reviewed by: Yadi Cisneros - Fully Assessed Reason for Visit: low hemoglobin [Other] Cmt: new patient consult Primary Visit Diagnosis:Iron deficiency anemia, unspecified iron deficiency anemia type [D50.9] Other Visit Diagnosis:Vaginal bleeding [N93.9] Order(s):TRANSFUSION- BLOOD [8065334] Order #: [id number] CONSULT TO GYNECOLOGY [9013] Order #: [id number]: 1 Disposition: Return in about 5 days [...] by SYLVIA CHIN MD on 06/18/18 Normal [facility] Ferritinon 06-18-2018 Ferritin mass conc 7.5 ng/mL Low 14.7-205.1 [facility] Comment on above: Performed By: #### I YEE, B12, SERFOL, FERR, TSH, MMA #### [place] [address] Folate, Serumon 06-18-2018 Folate mass conc 16.8 ng/mL Normal >4.7 [facility] Comment on above: Performed By: #### I YEE, B12, SERFOL, FERR, TSH, MMA #### [place] [address] Iron and TIBCon 06-18-2018 Iron mass conc 14 ug/dL Low 41-186 [facility] Comment on above: Performed By: #### I YEE, B12, SERFOL, FERR, TSH, MMA #### [place] [address] TIBC 486 ug/dL High 232-386 [facility] Comment on above: Performed By: #### I YEE, B12, SERFOL, FERR, TSH, MMA #### [place] [address] Transferrin Saturatn 3 % Low 15-57 [facility] Comment on above: Performed By: #### I YEE, B12, SERFOL, FERR, TSH, MMA #### [place] [address] Methylmalonic Acidon 018 Methylmalonic Acid 156 nmol/L Normal 79-376 [facility] Comment on above: Result Comment: This test was developed and its performance characteristics determined by [facility]'s Vikash JGonzalo [facility] [place] ([facility]). It has not been cleared or approved by the FDA. [facility] is regulated under CLIA as qualified to perform high-complexity testing. This test is used for clinical purposes. It should not be regarded as investigational or for research. Performed By: #### I YEE, B12, SERFOL, FERR, TSH, MMA #### [facility] [address] [place], [place] [address] PROGRESSon 06-18-2018 Protein mass conc HNO ID: [id number] Author: Sylvia Chin Service: (none) Author Type: Physician Type: Progress Notes Filed: 06/18/2018 8:57 AM Note Text: HPI Sarah Beth Griffiths is a 48 [...] SKIN: Negative for lesions, rash, and itching. MARINE FIREMAN: heavy vaginal bleeding PSYCH: Negative for sleep [...] iron beginning next week 3. Refer to MARINE FIREMAN for intractable vaginal bleeding. DDX considered. She has had severe vaginal bleeding since March and will need to see immediate MARINE FIREMAN for workup and diagnosis. - VENTOLIN HFA [...] CONSULT TO GYNECOLOGY Sylvia Chin MD Normal [facility] Remote CBCDIF (for [facility] use only)on 06-18-2018 Abs Baso 0.03 k/uL Normal 0.00-0.10 [facility] Comment on above: Performed By: #### R CBCDF #### [place] [address] Abs [place] 0.63 k/uL Normal 0.00-0.86 [facility] Comment on above: Performed By: #### R CBCDF #### [place] [address] Abs Neut 6.40 k/uL Normal 1.45-7.50 [facility] Comment on above: Performed By: #### R CBCDF #### [place] [address] Basophils/100 WBC (Bld) 0.4 % Normal [facility] Comment on above: Performed By: #### R CBCDF #### [place] [phone] Comment QDP=[id number] Normal [facility] Comment on above: Result Comment: [facility]. Preliminary result. Interpret with caution. Final results may vary. Results requested and read back by: AIDAN/BELEM/945/06/18/18/LATONYA Performed By: #### R CBCDF #### [place] [address] Eosinophils #/vol (Bld) 0.14 10*3/uL Normal 0.00-0.45 [facility] Comment on above: Performed By: #### R CBCDF #### [address] [address] Eosinophils/100 WBC (Bld) 1.7 % Normal [facility] Comment on above: Performed By: #### R CBCDF #### [place] [phone] [place] [phone] Erythrocyte distribution width Ratio (RBC) 21.1 % High 11.5-15.0 [facility] Comment on above: Performed By: #### R CBCDF #### [place] [phone] Hematocrit Volume Fraction (Bld) 21.8 % Low 36.0-46.0 [facility] Comment on above: Performed By: #### R CBCDF #### [place] [phone] Hemoglobin mass conc (Bld) 6.0 g/dL Low 11.5-15.5 [facility] Comment on above: Performed By: #### R CBCDF #### [place] [phone] Lymphocytes #/vol (Bld) 1.05 10*3/uL Normal 1.00-4.00 [facility] Comment on above: Performed By: #### R CBCDF #### [place] [phone] Lymphocytes/100 WBC (Bld) 12.7 % Normal [facility] Comment on above: Performed By: #### R CBCDF #### [place] [phone] MCH Entitic mass (RBC) 18.1 pG Low 26.0-34.0 [facility] Comment on above: Performed By: #### R CBCDF #### [place] [phone] MCHC mass conc (RBC) 27.5 g/dL Low 30.5-36.0 [facility] Comment on above: Performed By: #### R CBCDF #### [place] [phone] MCV Entitic volume (RBC) 65.7 fL Low 80.0-100.0 [facility] Comment on above: Performed By: #### R CBCDF #### [place] [address] [place] [address] Monocytes/100 WBC (Bld) 7.6 % Normal [facility] Comment on above: Performed By: #### R CBCDF #### [place] [address] Neutrophils/100 WBC (Bld) 77.6 % Normal [facility] Comment on above: Performed By: #### R CBCDF #### [place] [address] Platelet mean volume Entitic volume (Bld) 11.0 fL Normal 9.0-12.7 [facility] Comment on above: Performed By: #### R CBCDF #### [place] [address] Platelets #/vol (Bld) 286 10*3/uL Normal 150-400 [facility] Comment on above: Result Comment: Resu lt checked and verified No clot detected. Performed By: #### R CBCDF #### [address] [address] RBC #/vol (Bld) 3.32 10*6/uL Low 3.90-5.20 [facility] Comment on above: Performed By: #### R CBCDF #### [address] [address] WBC #/vol (Bld) 8.25 10*3/uL Normal 3.70-11.00 [facility] Comment on above: Performed By: #### R CBCDF #### [place] [address] TSHon 06-18-2018 Thyrotropin Qn 1.360 uU/mL Normal 0.400-5.500 [facility] Comment on above: Result Comment: If t he patient is , TSH reference range varies by gestational period: First Trimester 0.100-2.500 uU/mL Second Trimester 0.200-3.000 uU/mL Third Trimester 0.300-3.000 uU/mL References: 1. Logan L, Tommy M, Jason EK, et al. Management of Thyroid Dysfunction during and : An Endocrine Society Clinical Practice Guideline. J Clin Endocrinol Metab, 2012:97:1686-2047. 2. Chris ACEVEDO. Overview of thyroid disease in . UpToDate. 2016. Accessed on March 14, 2016. Performed By: #### I YEE, B12, SERFOL, FERR, TSH, MMA #### [facility] [address] [place] [address] Vitamin B12on 06-18-2018 Cobalamin (Vitamin B12) mass conc 378 pg/mL Normal 232-1245 [facility] Comment on above: Performed By: #### I YEE, B12, SERFOL, FERR, TSH, MMA #### [facility] [address] [place] [address] Encounters Encounter Date Encounter Type Care Provider Facility Start: 03-18-2024 End: 03-18-2024 ambulatory ELVIRA H TIMMIS Not Available Start: 03-08-2024 End: 03-08-2024 ambulatory Elvira H Timmis [facility] Work Phone: Start: 03-08-2024 End: 03-08-2024 Departed Referred MD Enmanuel Donahue Work Phone: [facility] Start: 01-27-2024 End: 01-27-2024 ambulatory ELVIRA H TIMMIS Not Available Start: 01-14-2024 End: 01-14-2024 ambulatory MD Stephanie Hubbard Work Phone: [facility] Work Phone: Start: 01-14-2024 End: 01-14-2024 Departed Referred MD Stephanie Hubbard Work Phone: [facility] Start: 01-06-2024 End: 01-06-2024 ambulatory ELVIRA CHERY Not Available Start: 11-12-2023 End: 11-12-2023 ambulatory MD Stephanie Hubbard Work Phone: [facility] Work Phone: Start: 11-12-2023 End: 11-12-2023 Departed Referred MD Stephanie Hubbard Work Phone: [facility] Start: 05-28-[address] STEPHANIE HUBBARD Facility :[facility] Start: 04-02-2022 End: 04-03-[address] STEPHANIE HUBBARD Facility:[facility] Start: 03-25-[address] STEPHANIE HUBBARD Facility :[facility] Start: 10-17-[address] STEPHANIE HUBBARD Facility :[facility] Start: 10-15-2018 End: 10-15-2018 Patient encounter procedure SYLVIA CHIN [facility] Start: 10-13-2018 Patient encounter procedure SYLVIA CHIN [facility] Start: 08-24-2018 End: 08-24-2018 Patient encounter procedure SYLVIA CHIN [facility] Start: 07-16-2018 End: 07-19-2018 Patient encounter procedure SYLVIA CHIN [facility] Start: 06-28-2018 End: 06-28-2018 Patient encounter procedure SYLVIA CHIN [facility] Start: 06-28-2018 End: 06-29-2018 Patient encounter procedure SYLVIA CHIN [facility] Start: 06-23-2018 End: 06-24-2018 Patient encounter procedure SYLVIA CHIN [facility] Start: 06-21-2018 End: 06-22-2018 Patient encounter procedure SYLVIA CHIN [facility] Start: 06-18-2018 End: 06-21-2018 Patient encounter procedure SYLVIA CHIN [facility] Payers Date Payer Category Payer Self-pay [id number] 2023 Unknown [id number] 1970 Unknown [id number] 2.16.84 [id number] 1970 Unknown [id number] 2.16.84 [id number] 1970 Unknown [id number] 2.16.84 [id number] 1970 Unknown [id number] 2.16.84 [id number] 1970 Unknown [id number] 2.16.84 [id number] 1970 Unknown [id number] 2.16.84 [id number] 1970 Unknown [id number] 2.16.84 [id number] 1961 Self-pay [id number] 1961 Unknown [id number] Unknown [place] [employer] [id number] Unknown [id number] 2.16.8 [id number] Unknown [id number] 2.16.8 [id number] Unknown [id number] 2.16.8 [id number] Social History Date Type Detail Facility Start: 04-23-2018 End: 04-23-2018 Tobacco smoking status CTIS Smoker (finding) [facility] Start: 1970 Sex Assigned At Female F [facility] Evaluation note Note Date & Type Note Facility Evaluation note No assessment information availa ble [facility] Work Phone: Summary Purpose Family History No [...] section and content) DATE CREATED AUTHOR 10/24/2018 [facility] DATE CREATED AUTHOR AUTHOR'S ORGANIZ ATION 05/26/2022 [facility] DATE CREATED AUTHOR AUTHOR'S ORGANIZ ATION 03/10/2024 [facility] DATE CREATED AUTHOR AUTHOR'S ORGANIZ ATION 03/20/2024 [facility] EPIC Care Teams (unrecognized sec [...] January 14, 2024 End: January 14, 2024 Team Status: Inactive Member Role Status Dates Elvira Chery Jr, MD Attending Provider Active Start: March 08, 2024 End: March 08, 2024 Goals (unrecognized section and content) Goals may be documented in a n alternate sectionGoals may be documented in an alternate sectionGoals may be documented in an [...] BE BASED ON THE PRIMARY CLINICAL RECORDS. [employer] provides no warranty or guarantee of the accuracy or completeness of information in this document.
[2025-07-14 10:57] LABS: Hematocrit 44.4 % (36.0-48.0); Hemoglobin 14.5 g/dL (12.0-16.0); Immature Granulocytes Abs Auto 0.02 10^3/uL (0.00-0.03); Immature Granulocytes Pct Auto 0.3 % (0.0-0.5); Lymphocytes Absolute Auto 0.6 10^3/uL (1.2-3.8); Mean Corpuscular HGB Conc 32.7 g/dL (29.9-35.2); Mean Corpuscular Hemoglobin 30.1 pg (26.7-34.0); Mean Corpuscular Volume 92.3 fL (81.0-99.0); Platelet Count 177 10^3/uL (150-450); Red Blood Count 4.81 10^6/uL (4.20-5.40); White Blood Count 6.2 10^3/uL (4.0-11.0)
[2025-07-14 12:02] LABS: Alanine Aminotransferase 27 U/L (14-59); Albumin Globulin Ratio 0.9; Albumin Level 3.7 g/dL (3.4-5.0); Alkaline Phosphatase 109 U/L (46-116); Anion Gap 10.5; Aspartate Amino Transferase 16 U/L (15-37); Blood Urea Nitrogen 17.0 mg/dL (7.0-18.0); Calcium 9.2 mg/dL (8.5-10.1); Carbon Dioxide 29.6 mmol/L (21.0-32.0); Chloride 105 mmol/L (98-107); Cholesterol 162 mg/dL (<=200); Estimated GFR (African America >60 (>=60 mL/min/1.73m^2); Estimated GFR (Non-African Ame >60 (>=60 mL/min/1.73m^2); Free T3 2.91 pg/mL (2.18-3.98); Globulin 3.9 g/dL; Glucose 112 mg/dL (74-106); HDL Cholesterol 58 mg/dL (40-60); Potassium 4.1 mmol/L (3.5-5.1); Sodium 141 mmol/L (136-145); Thyroid Stimulating Hormone 0.797 uIU/mL (0.358-3.740); Total Protein 7.6 g/dL (6.4-8.2); Triglycerides 62 mg/dL (<=150); VLDL CHOLESTEROL 12.4 mg/dL
== END 2025-07-14 10:02 | disposition home or self-care (01) ==
PROVIDERS: PCP Family Medicine; Visit Provider Family Medicine
DX: Z00.00 Encounter for general adult medical examination without abnormal findings (principal); Z12.11 Encounter for screening for malignant neoplasm of colon
CPT/HCPCS: 36415; 80053; 80061; 83036; 84436; 84443; 84481; 85025; G0328